=== PATIENT | male | born 1985 ===

== ENCOUNTER 2021-11-26 15:48 | Inpatient (IN) | payer SELFPAY ==
[2021-11-26 16:55] LABS: Basophils # (Auto) 0.1 K/mm3 (0.0-0.1); Basophils % (Auto) 0.6 % (0.0-1.8); Eosinophils % (Auto) 0.1 % (0.0-4.3); Hemoglobin 14.8 gm/dl (11.8-15.2); Lymphocytes # (Auto) 1.5 K/mm3 (1.2-5.4); Lymphocytes % (Auto) 9.6 % (13.4-35.0); Mean Corpuscular HGB Conc 34 % (32-34); Mean Corpuscular Volume 97 fl (84-94); Monocytes # (Auto) 1.6 K/mm3 (0.0-0.8); Monocytes % (Auto) 10.6 % (0.0-7.3); Platelet Count 269 K/mm3 (140-440); Red Blood Count 4.43 M/mm3 (3.65-5.03); Red Cell Distribution Width 14.2 % (13.2-15.2)
[2021-11-26 17:05] LABS: INR 1.16 (0.87-1.13)
[2021-11-26 17:14] LABS: Alanine Aminotransferase 42 units/L (7-56); Albumin 3.2 g/dL (3.9-5); Bilirubin,Direct 1.6 mg/dL (0-0.2); Blood Urea Nitrogen 7 mg/dL (9-20); Calcium 7.8 mg/dL (8.4-10.2); Hemolysis Index 11
[2021-11-26 17:15] LABS: BUN/Creatinine Ratio 14
[2021-11-26] MEDS ORDERED: THIAMINE 100 MG, FOLIC ACID 1 MG, MULTIPLE VITAMIN INJ, ADULT 10 ML in SODIUM CHLORIDE ... IV ONE (18:31)
[2021-11-26] MEDS ORDERED: SODIUM CHLORIDE 3% 500 ML IV ONE (18:33)
[2021-11-26 18:51] LABS: ABG Base Excess -10.7 mmol/L (-2.0-3.0); ABG HCO3 11.4 mmol/L (20.0-26.0); ABG Methemoglobin 0.7 % (0.0-1.5); ABG Oxygen Saturation 98.1 % (95.0-99.0); ABG PCO2 19.1 mm Hg; ABG PH 7.393 pH Units (7.350-7.450); ABG PO2 110.8 mm Hg (80.0-90.0)
--- NOTE | 2021-11-26 18:53 | Emergency Department Report ---
ED General Adult HPI - General Chief complaint: Abdominal Pain Stated complaint: ABD PAIN/SWELLING/PEDAL EDEMA Time Seen by Provider: 11/26/21 18:22 Source: EMS Mode of arrival: Stretcher Limitations: Language Barrier (Houseperson used) - History of Present Illness Initial comments: 36-year-old Citizen Of [place]-speaking male with a past medical history of hypertension and daily alcohol abuse presents to the hospital with complaints of generalized abdominal swelling, leg edema, shortness of breath. Patient started 5 days ago have been progressively worsening. Last alcohol intake was yesterday evening at 10 PM. Patient denies history of liver issues. No fever reported. Mild diffuse abdominal pain reported. Severity scale (0 -10): 4 - Related Data Allergies Allergy/AdvReac Type Severity Reaction Status Date / Time No Known Allergies Allergy Verified 11/26/21 18:35 ED Review of Systems ROS: Stated complaint: ABD PAIN/SWELLING/PEDAL EDEMA Other details as noted in HPI Comment: All other systems reviewed and negative ED Physical Exam - General Limitations: Language Barrier - Other Other exam information: General: Acute respiratory distress with diaphoresis Head: Atraumatic Eyes: normal appearance ENT: Moist mucous membranes Neck: Normal appearance, no midline tenderness Chest: Tachypnea, diminished breath sounds CV: Tachycardic regular rhythm Abdomen: Soft, normal bowel sounds, nontender abdomen Back: Normal inspection Extremity: Bilateral 1+ lower extremity pitting edema Neuro: Alert, oriented to self, place, but not to year. No facial asymmetry. Speech clear. No focal deficit. Generalized weakness inability to stand or ambulate without falling Psych: Cooperative Skin: Diaphoretic ED Course Vital Signs 11/26/21 11/26/21 11/26/21 15:50 19:05 19:16 Temperature 98.2 F Pulse Rate 112 H 117 H 117 H Respiratory 18 39 H 35 H Rate Blood Pressure Blood Pressure 128/64 [Left] O2 Sat by Pulse 98 100 100 Oximetry 11/26/21 11/26/21 11/26/21 19:43 19:45 20:01 Temperature Pulse Rate 116 H Respiratory 38 H Rate Blood Pressure 136/39 136/39 163/79 Blood Pressure [Left] O2 Sat by Pulse 100 100 100 Oximetry 11/26/21 11/26/21 11/26/21 20:07 20:15 20:27 Temperature Pulse Rate 115 H 115 H Respiratory 34 H 44 H Rate Blood Pressure 163/79 163/79 Blood Pressure [Left] O2 Sat by Pulse 100 100 96 Oximetry 11/26/21 11/26/21 11/26/21 20:31 20:45 21:01 Temperature Pulse Rate 116 H 119 H 117 H Respiratory 45 H 36 H 39 H Rate Blood Pressure 136/39 136/39 173/56 Blood Pressure [Left] O2 Sat by Pulse 99 100 99 Oximetry 11/26/21 11/26/21 11/26/21 21:15 21:31 21:37 Temperature Pulse Rate 118 H 114 H 116 H Respiratory 44 H 33 H 38 H Rate Blood Pressure 173/56 173/56 Blood Pressure 173/56 [Left] O2 Sat by Pulse 100 100 99 Oximetry 11/26/21 11/26/21 11/26/21 21:45 22:01 22:15 Temperature Pulse Rate 120 H 121 H Respiratory 25 H 25 H 32 H Rate Blood Pressure 173/56 139/79 139/79 Blood Pressure [Left] O2 Sat by Pulse 98 100 95 Oximetry 11/26/21 11/26/21 11/26/21 22:31 22:45 23:01 Temperature Pulse Rate 119 H 117 H Respiratory 36 H 17 Rate Blood Pressure 139/79 139/79 139/79 Blood Pressure [Left] O2 Sat by Pulse 95 97 98 Oximetry 11/26/21 11/26/21 11/26/21 23:15 23:31 23:38 Temperature Pulse Rate 114 H 117 H Respiratory 28 H 28 H Rate Blood Pressure 91/71 91/71 Blood Pressure [Left] O2 Sat by Pulse 98 98 100 Oximetry 11/26/21 11/27/21 11/27/21 23:45 00:01 00:15 Temperature Pulse Rate 112 H 111 H 111 H Respiratory 25 H 25 H 27 H Rate Blood Pressure 91/71 114/44 114/44 Blood Pressure [Left] O2 Sat by Pulse 98 98 98 Oximetry 11/27/21 11/27/21 11/27/21 00:31 00:45 01:01 Temperature Pulse Rate 110 H 113 H 114 H Respiratory 27 H 34 H 27 H Rate Blood Pressure 114/44 114/44 104/63 Blood Pressure [Left] O2 Sat by Pulse 97 100 99 Oximetry 11/27/21 11/27/21 11/27/21 01:15 01:31 01:47 Temperature Pulse Rate 115 H 120 H Respiratory 24 32 H Rate Blood Pressure 104/63 104/63 104/63 Blood Pressure [Left] O2 Sat by Pulse 97 97 Oximetry 11/27/21 11/27/21 11/27/21 01:59 02:01 02:15 Temperature Pulse Rate 118 H 117 H 116 H Respiratory 30 H 23 Rate Blood Pressure 129/52 129/52 Blood Pressure 126/58 [Left] O2 Sat by Pulse 98 98 98 Oximetry 11/27/21 11/27/21 11/27/21 02:31 02:45 03:01 Temperature Pulse Rate 116 H 119 H Respiratory 33 H 37 H Rate Blood Pressure 129/52 129/52 120/64 Blood Pressure [Left] O2 Sat by Pulse 96 95 93 Oximetry 11/27/21 11/27/21 11/27/21 03:15 03:31 03:45 Temperature Pulse Rate 121 H 122 H 124 H Respiratory 33 H 36 H 33 H Rate Blood Pressure 120/64 120/64 120/64 Blood Pressure [Left] O2 Sat by Pulse 87 96 97 Oximetry 11/27/21 11/27/21 11/27/21 04:01 04:15 04:31 Temperature Pulse Rate 123 H 124 H 123 H Respiratory 28 H 29 H 29 H Rate Blood Pressure 134/116 134/116 134/116 Blood Pressure [Left] O2 Sat by Pulse 99 100 96 Oximetry 11/27/21 11/27/21 11/27/21 04:45 05:01 05:15 Temperature Pulse Rate 123 H 124 H 124 H Respiratory 42 H 37 H 35 H Rate Blood Pressure 134/116 134/116 134/116 Blood Pressure [Left] O2 Sat by Pulse 94 95 95 Oximetry 11/27/21 11/27/21 11/27/21 05:31 05:45 06:01 Temperature Pulse Rate 120 H 120 H 119 H Respiratory Rate Blood Pressure 134/116 116/67 127/78 Blood Pressure [Left] O2 Sat by Pulse 99 99 99 Oximetry 11/27/21 11/27/21 11/27/21 06:15 06:31 06:45 Temperature Pulse Rate 120 H 116 H 117 H Respiratory Rate Blood Pressure 127/78 127/78 127/78 Blood Pressure [Left] O2 Sat by Pulse 98 99 100 Oximetry 11/27/21 11/27/21 11/27/21 07:01 07:15 07:29 Temperature Pulse Rate 116 H 111 H Respiratory Rate Blood Pressure 129/61 129/61 Blood Pressure [Left] O2 Sat by Pulse 100 100 96 Oximetry 11/27/21 11/27/21 11/27/21 07:31 07:38 07:45 Temperature 98.4 F Pulse Rate 108 H 107 H 107 H Respiratory Rate Blood Pressure 129/61 129/61 Blood Pressure 129/61 [Left] O2 Sat by Pulse 100 99 Oximetry 11/27/21 11/27/21 11/27/21 08:01 08:15 09:10 Temperature Pulse Rate 104 H 103 H Respiratory Rate Blood Pressure 128/63 128/63 Blood Pressure [Left] O2 Sat by Pulse 99 100 97 Oximetry - Reevaluation(s) Reevaluation #1: 11/26/21 21:30 Patient had a repeat episode of tachycardia, diaphoresis, and shortness of breath. Ativan and Lasix ordered. - Consultations Consultation #1: 11/26/21 18:50 Case discussed with on-call loading unit operator powder charging Dr. Manuel Koo. He agrees with hy pertonic saline at 25 mill per hour. Request every 4 hours BMP and to be notified with the sodium result. States that sodium should not rise greater than 8 and a 24 hours so sodium rate will need to be adjusted or discontinued if it is rising too rapidly ED Medical Decision Making - Lab Data Result diagrams: 11/27/21 02:03 11/27/21 10:19 Lab Results 11/26/21 11/26/21 11/26/21 Range/Units 11:00 16:24 16:24 WBC 15.4 H (4.5-11.0) K/mm3 RBC 4.43 (3.65-5.03) M/mm3 Hgb 14.8 (11.8-15.2) gm/dl Hct 43.0 (35.5-45.6) % MCV 97 H (84-94) fl MCH 33 H (28-32) pg MCHC 34 (32-34) % RDW 14.2 (13.2-15.2) % Plt Count 269 (140-440) K/mm3 Lymph % (Auto) 9.6 L (13.4-35.0) % [place] % (Auto) 10.6 H (0.0-7.3) % Eos % (Auto) 0.1 (0.0-4.3) % Baso % (Auto) 0.6 (0.0-1.8) % Lymph # (Auto) 1.5 (1.2-5.4) K/mm3 [place] # (Auto) 1.6 H (0.0-0.8) K/mm3 Eos # (Auto) 0.0 (0.0-0.4) K/mm3 Baso # (Auto) 0.1 (0.0-0.1) K/mm3 Seg Neutrophils % 79.1 H (40.0-70.0) % Seg Neutrophils # 12.2 H (1.8-7.7) K/mm3 PT 16.2 H (12.2-14.9) Sec. INR 1.16 H (0.87-1.13) APTT (24.2-36.6) Sec. ABG pH (7.350-7.450) pH Units ABG pCO2 mm Hg ABG pO2 (80.0-90.0) mm Hg ABG HCO3 (20.0-26.0) mmol/L ABG O2 Saturation (95.0-99.0) % ABG O2 Content (0.0-44) ABG Base Excess (-2.0-3.0) mmol/L ABG Hemoglobin (14.0-18.0) gm/dl ABG Carboxyhemoglobin (0.0-5.0) % ABG Methemoglobin (0.0-1.5) % Oxyhemoglobin (95.0-99.0) % FiO2 % Sodium (137-145) mmol/L Potassium (3.6-5.0) mmol/L Chloride (98-107) mmol/L Carbon Dioxide (22-30) mmol/L Anion Gap mmol/L BUN (9-20) mg/dL Creatinine (0.8-1.3) mg/dL Estimated GFR ml/min BUN/Creatinine Ratio % Glucose (75-100) mg/dL POC Glucose (70-105) mg/dL Ketones Quantitative (Negative) Lactic Acid (0.7-2.0) mmol/L Calcium (8.4-10.2) mg/dL Magnesium (1.7-2.3) mg/dL Total Bilirubin (0.1-1.2) mg/dL Direct Bilirubin (0-0.2) mg/dL Indirect Bilirubin mg/dL AST (5-40) units/L ALT (7-56) units/L Alkaline Phosphatase (35-129) units/L Ammonia (25-60) umol/L NT-Pro-B Natriuret Pep (0-450) pg/mL Total Protein (6.3-8.2) g/dL Albumin (3.9-5) g/dL Albumin/Globulin Ratio % Lipase (13-60) units/L TSH (0.270-4.200) mlU/mL Free T4 (0.76-1.46) ng/dL Urine Color [place] (Yellow) Urine Turbidity Clear (Clear) Urine pH 6.0 (5.0-7.0) Ur Specific [place] 1.021 (1.003-1.030) Urine Protein <15 mg/dl (Negative) mg/dL Urine Glucose (UA) Neg (Negative) mg/dL Urine Ketones Tr (Negative) mg/dL Urine Blood Neg (Negative) Urine Nitrite Neg (Negative) Urine Bilirubin Neg (Negative) Urine Urobilinogen 4.0 (<2.0) mg/dL Ur Leukocyte Esterase Neg (Negative) Urine WBC (Auto) 1.0 (0.0-6.0) /HPF Urine RBC (Auto) < 1.0 (0.0-6.0) /HPF U Epithel Cells (Auto) < 1.0 (0-13.0) /HPF Plasma/Serum Alcohol (0-0.07) % 11/26/21 11/26/21 11/26/21 Range/Units 16:24 16:24 16:24 WBC (4.5-11.0) K/mm3 RBC (3.65-5.03) M/mm3 Hgb (11.8-15.2) gm/dl Hct (35.5-45.6) % MCV (84-94) fl MCH (28-32) pg MCHC (32-34) % RDW (13.2-15.2) % Plt Count (140-440) K/mm3 Lymph % (Auto) (13.4-35.0) % [place] % (Auto) (0.0-7.3) % Eos % (Auto) (0.0-4.3) % Baso % (Auto) (0.0-1.8) % Lymph # (Auto) (1.2-5.4) K/mm3 [place] # (Auto) (0.0-0.8) K/mm3 Eos # (Auto) (0.0-0.4) K/mm3 Baso # (Auto) (0.0-0.1) K/mm3 Seg Neutrophils % (40.0-70.0) % Seg Neutrophils # (1.8-7.7) K/mm3 PT (12.2-14.9) Sec. INR (0.87-1.13) APTT 38.3 H (24.2-36.6) Sec. ABG pH (7.350-7.450) pH Units ABG pCO2 mm Hg ABG pO2 (80.0-90.0) mm Hg ABG HCO3 (20.0-26.0) mmol/L ABG O2 Saturation (95.0-99.0) % ABG O2 Content (0.0-44) ABG Base Excess (-2.0-3.0) mmol/L ABG Hemoglobin (14.0-18.0) gm/dl ABG Carboxyhemoglobin (0.0-5.0) % ABG Methemoglobin (0.0-1.5) % Oxyhemoglobin (95.0-99.0) % FiO2 % Sodium 102 L* (137-145) mmol/L Potassium 5.2 H (3.6-5.0) mmol/L Chloride 67.6 L (98-107) mmol/L Carbon Dioxide 13 L (22-30) mmol/L Anion Gap 27 mmol/L BUN 7 L (9-20) mg/dL Creatinine 0.5 L (0.8-1.3) mg/dL Estimated GFR > 60 ml/min BUN/Creatinine Ratio 14 % Glucose 127 H (75-100) mg/dL POC Glucose (70-105) mg/dL Ketones Quantitative (Negative) Lactic Acid (0.7-2.0) mmol/L Calcium 7.8 L (8.4-10.2) mg/dL Magnesium 1.90 (1.7-2.3) mg/dL Total Bilirubin 3.60 H (0.1-1.2) mg/dL Direct Bilirubin 1.6 H (0-0.2) mg/dL Indirect Bilirubin 2.0 mg/dL AST 232 H (5-40) units/L ALT 42 (7-56) units/L Alkaline Phosphatase 214 H (35-129) units/L Ammonia (25-60) umol/L NT-Pro-B Natriuret Pep 1043 H (0-450) pg/mL Total Protein 7.2 (6.3-8.2) g/dL Albumin 3.2 L (3.9-5) g/dL Albumin/Globulin Ratio 0.8 % Lipase 78 H (13-60) units/L TSH (0.270-4.200) mlU/mL Free T4 (0.76-1.46) ng/dL Urine Color (Yellow) Urine Turbidity (Clear) Urine pH (5.0-7.0) Ur Specific [place] (1.003-1.030) Urine Protein (Negative) mg/dL Urine Glucose (UA) (Negative) mg/dL Urine Ketones (Negative) mg/dL Urine Blood (Negative) Urine Nitrite (Negative) Urine Bilirubin (Negative) Urine Urobilinogen (<2.0) mg/dL Ur Leukocyte Esterase (Negative) Urine WBC (Auto) (0.0-6.0) /HPF Urine RBC (Auto) (0.0-6.0) /HPF U Epithel Cells (Auto) (0-13.0) /HPF Plasma/Serum Alcohol (0-0.07) % 11/26/21 11/26/21 11/26/21 Range/Units 16:24 18:31 18:44 WBC (4.5-11.0) K/mm3 RBC (3.65-5.03) M/mm3 Hgb (11.8-15.2) gm/dl Hct (35.5-45.6) % MCV (84-94) fl MCH (28-32) pg MCHC (32-34) % RDW (13.2-15.2) % Plt Count (140-440) K/mm3 Lymph % (Auto) (13.4-35.0) % [place] % (Auto) (0.0-7.3) % Eos % (Auto) (0.0-4.3) % Baso % (Auto) (0.0-1.8) % Lymph # (Auto) (1.2-5.4) K/mm3 [place] # (Auto) (0.0-0.8) K/mm3 Eos # (Auto) (0.0-0.4) K/mm3 Baso # (Auto) (0.0-0.1) K/mm3 Seg Neutrophils % (40.0-70.0) % Seg Neutrophils # (1.8-7.7) K/mm3 PT (12.2-14.9) Sec. INR (0.87-1.13) APTT (24.2-36.6) Sec. ABG pH 7.393 (7.350-7.450) pH Units ABG pCO2 19.1 mm Hg ABG pO2 110.8 H (80.0-90.0) mm Hg ABG HCO3 11.4 L (20.0-26.0) mmol/L ABG O2 Saturation 98.1 (95.0-99.0) % ABG O2 Content 20.6 (0.0-44) ABG Base Excess -10.7 L (-2.0-3.0) mmol/L ABG Hemoglobin 15.2 (14.0-18.0) gm/dl ABG Carboxyhemoglobin 1.6 (0.0-5.0) % ABG Methemoglobin 0.7 (0.0-1.5) % Oxyhemoglobin 95.9 (95.0-99.0) % FiO2 28 % Sodium (137-145) mmol/L Potassium (3.6-5.0) mmol/L Chloride (98-107) mmol/L Carbon Dioxide (22-30) mmol/L Anion Gap mmol/L BUN (9-20) mg/dL Creatinine (0.8-1.3) mg/dL Estimated GFR ml/min BUN/Creatinine Ratio % Glucose (75-100) mg/dL POC Glucose (70-105) mg/dL Ketones Quantitative Negative (Negative) Lactic Acid 9.10 H* (0.7-2.0) mmol/L Calcium (8.4-10.2) mg/dL Magnesium (1.7-2.3) mg/dL Total Bilirubin (0.1-1.2) mg/dL Direct Bilirubin (0-0.2) mg/dL Indirect Bilirubin mg/dL AST (5-40) units/L ALT (7-56) units/L Alkaline Phosphatase (35-129) units/L Ammonia (25-60) umol/L NT-Pro-B Natriuret Pep (0-450) pg/mL Total Protein (6.3-8.2) g/dL Albumin (3.9-5) g/dL Albumin/Globulin Ratio % Lipase (13-60) units/L TSH (0.270-4.200) mlU/mL Free T4 (0.76-1.46) ng/dL Urine Color (Yellow) Urine Turbidity (Clear) Urine pH (5.0-7.0) Ur Specific [place] (1.003-1.030) Urine Protein (Negative) mg/dL Urine Glucose (UA) (Negative) mg/dL Urine Ketones (Negative) mg/dL Urine Blood (Negative) Urine Nitrite (Negative) Urine Bilirubin (Negative) Urine Urobilinogen (<2.0) mg/dL Ur Leukocyte Esterase (Negative) Urine WBC (Auto) (0.0-6.0) /HPF Urine RBC (Auto) (0.0-6.0) /HPF U Epithel Cells (Auto) (0-13.0) /HPF Plasma/Serum Alcohol (0-0.07) % 11/26/21 11/26/21 11/26/21 Range/Units 18:44 18:44 18:51 WBC (4.5-11.0) K/mm3 RBC (3.65-5.03) M/mm3 Hgb (11.8-15.2) gm/dl Hct (35.5-45.6) % MCV (84-94) fl MCH (28-32) pg MCHC (32-34) % RDW (13.2-15.2) % Plt Count (140-440) K/mm3 Lymph % (Auto) (13.4-35.0) % [place] % (Auto) (0.0-7.3) % Eos % (Auto) (0.0-4.3) % Baso % (Auto) (0.0-1.8) % Lymph # (Auto) (1.2-5.4) K/mm3 [place] # (Auto) (0.0-0.8) K/mm3 Eos # (Auto) (0.0-0.4) K/mm3 Baso # (Auto) (0.0-0.1) K/mm3 Seg Neutrophils % (40.0-70.0) % Seg Neutrophils # (1.8-7.7) K/mm3 PT (12.2-14.9) Sec. INR (0.87-1.13) APTT (24.2-36.6) Sec. ABG pH (7.350-7.450) pH Units ABG pCO2 mm Hg ABG pO2 (80.0-90.0) mm Hg ABG HCO3 (20.0-26.0) mmol/L ABG O2 Saturation (95.0-99.0) % ABG O2 Content (0.0-44) ABG Base Excess (-2.0-3.0) mmol/L ABG Hemoglobin (14.0-18.0) gm/dl ABG Carboxyhemoglobin (0.0-5.0) % ABG Methemoglobin (0.0-1.5) % Oxyhemoglobin (95.0-99.0) % FiO2 % Sodium (137-145) mmol/L Potassium (3.6-5.0) mmol/L Chloride (98-107) mmol/L Carbon Dioxide (22-30) mmol/L Anion Gap mmol/L BUN (9-20) mg/dL Creatinine (0.8-1.3) mg/dL Estimated GFR ml/min BUN/Creatinine Ratio % Glucose (75-100) mg/dL POC Glucose (70-105) mg/dL Ketones Quantitative (Negative) Lactic Acid (0.7-2.0) mmol/L Calcium (8.4-10.2) mg/dL Magnesium (1.7-2.3) mg/dL Total Bilirubin (0.1-1.2) mg/dL Direct Bilirubin (0-0.2) mg/dL Indirect Bilirubin mg/dL AST (5-40) units/L ALT (7-56) units/L Alkaline Phosphatase (35-129) units/L Ammonia 59.0 (25-60) umol/L NT-Pro-B Natriuret Pep (0-450) pg/mL Total Protein (6.3-8.2) g/dL Albumin (3.9-5) g/dL Albumin/Globulin Ratio % Lipase (13-60) units/L TSH 3.910 (0.270-4.200) mlU/mL Free T4 1.46 (0.76-1.46) ng/dL Urine Color (Yellow) Urine Turbidity (Clear) Urine pH (5.0-7.0) Ur Specific [place] (1.003-1.030) Urine Protein (Negative) mg/dL Urine Glucose (UA) (Negative) mg/dL Urine Ketones (Negative) mg/dL Urine Blood (Negative) Urine Nitrite (Negative) Urine Bilirubin (Negative) Urine Urobilinogen (<2.0) mg/dL Ur Leukocyte Esterase (Negative) Urine WBC (Auto) (0.0-6.0) /HPF Urine RBC (Auto) (0.0-6.0) /HPF U Epithel Cells (Auto) (0-13.0) /HPF Plasma/Serum Alcohol 0.04 (0-0.07) % 11/26/21 11/26/21 11/26/21 Range/Units 21:02 21:02 21:30 WBC (4.5-11.0) K/mm3 RBC (3.65-5.03) M/mm3 Hgb (11.8-15.2) gm/dl Hct (35.5-45.6) % MCV (84-94) fl MCH (28-32) pg MCHC (32-34) % RDW (13.2-15.2) % Plt Count (140-440) K/mm3 Lymph % (Auto) (13.4-35.0) % [place] % (Auto) (0.0-7.3) % Eos % (Auto) (0.0-4.3) % Baso % (Auto) (0.0-1.8) % Lymph # (Auto) (1.2-5.4) K/mm3 [place] # (Auto) (0.0-0.8) K/mm3 Eos # (Auto) (0.0-0.4) K/mm3 Baso # (Auto) (0.0-0.1) K/mm3 Seg Neutrophils % (40.0-70.0) % Seg Neutrophils # (1.8-7.7) K/mm3 PT (12.2-14.9) Sec. INR (0.87-1.13) APTT (24.2-36.6) Sec. ABG pH (7.350-7.450) pH Units ABG pCO2 mm Hg ABG pO2 (80.0-90.0) mm Hg ABG HCO3 (20.0-26.0) mmol/L ABG O2 Saturation (95.0-99.0) % ABG O2 Content (0.0-44) ABG Base Excess (-2.0-3.0) mmol/L ABG Hemoglobin (14.0-18.0) gm/dl ABG Carboxyhemoglobin (0.0-5.0) % ABG Methemoglobin (0.0-1.5) % Oxyhemoglobin (95.0-99.0) % FiO2 % Sodium 101 L* (137-145) mmol/L Potassium TNR (3.6-5.0) mmol/L Chloride 72.7 L (98-107) mmol/L Carbon Dioxide 11 L (22-30) mmol/L Anion Gap 24 mmol/L BUN 9 (9-20) mg/dL Creatinine 0.4 L (0.8-1.3) mg/dL Estimated GFR > 60 ml/min BUN/Creatinine Ratio 23 % Glucose 128 H (75-100) mg/dL POC Glucose 127 H (70-105) mg/dL Ketones Quantitative (Negative) Lactic Acid 4.70 H* (0.7-2.0) mmol/L Calcium 7.0 L (8.4-10.2) mg/dL Magnesium (1.7-2.3) mg/dL Total Bilirubin (0.1-1.2) mg/dL Direct Bilirubin (0-0.2) mg/dL Indirect Bilirubin mg/dL AST (5-40) units/L ALT (7-56) units/L Alkaline Phosphatase (35-129) units/L Ammonia (25-60) umol/L NT-Pro-B Natriuret Pep (0-450) pg/mL Total Protein (6.3-8.2) g/dL Albumin (3.9-5) g/dL Albumin/Globulin Ratio % Lipase (13-60) units/L TSH (0.270-4.200) mlU/mL Free T4 (0.76-1.46) ng/dL Urine Color (Yellow) Urine Turbidity (Clear) Urine pH (5.0-7.0) Ur Specific [place] (1.003-1.030) Urine Protein (Negative) mg/dL Urine Glucose (UA) (Negative) mg/dL Urine Ketones (Negative) mg/dL Urine Blood (Negative) Urine Nitrite (Negative) Urine Bilirubin (Negative) Urine Urobilinogen (<2.0) mg/dL Ur Leukocyte Esterase (Negative) Urine WBC (Auto) (0.0-6.0) /HPF Urine RBC (Auto) (0.0-6.0) /HPF U Epithel Cells (Auto) (0-13.0) /HPF Plasma/Serum Alcohol (0-0.07) % - EKG Data -: EKG Interpreted by De EKG shows normal: sinus rhythm, ST-T waves (No STEMI) Rate: tachycardia (114) - Radiology Data Radiology results: report reviewed CHEST 1 VIEW INDICATION: sob. COMPARISON: None FINDINGS: SUPPORT DEVICES: None. HEART: Within normal limits. LUNGS/PLEURA: Mild patchy multifocal airspace disease with no pleural effusion. ADDITIONAL FINDINGS: None. IMPRESSION: 1. Lung findings as above. CT head/brain wo con INDICATION: confusion, alcohol abuse, hyponatremia. TECHNIQUE: Routine CT head. All CT scans at this location are performed using CT dose reduction for ALARA by means of automated exposure control. COMPARISON: None. FINDINGS: Intracranial: Mccormack-white matter differentiation is maintained. No intracranial hemorrhage. No extra axial collection. No hydrocephalus. No herniation. Sinuses: Paranasal sinuses and mastoid air cells are essentially clear. Orbits: Globes are intact. Calvarium: No acute fracture. IMPRESSION: 1. No acute intracranial abnormality. CTA chest with contrast CT abdomen and pelvis with contrast INDICATION : abd distention, alcoholic. TECHNIQUE: Axial imaging performed through the chest, with contrast bolus timing set to maximize opacification of the pulmonary arteries. 3-plane MIP reformatted images were obtained. Axial imaging also the abdomen and pelvis with IV contrast. All CT scans at this location are performed using CT dose reduction for ALARA by means of automated exposure control. 100 mL of intravenous contrast administered. COMPARISON: FINDINGS: CTA chest: Adequate contrast bolus timing with mild motion artifact. The subsegmental distribution is slightly limited by the motion but no obvious PTE identified. Mild cardiomegaly. No significant coronary artery calcifications. Several [place] regional lymph nodes are present. There is suggestion of diffuse patchy groundglass airspace disease in the lungs with no effusion. Degenerative changes are present in the spine with no acute osseous abnormality. CT abdomen/pelvis: There is hepatic steatosis. No liver lesion identified. The gallbladder, spleen, pancreas, adrenals, kidneys, and proximal GI tract appear unremarkable. Mild generalized body wall edema is present. The urinary bladder is distended but otherwise unremarkable. No pelvic free fluid or acute colonic abnormality identified. Degenerative changes in the spine with nothing acute. IMPRESSION: 1. Motion limited exam with no obvious PTE identified. 2. Diffuse groundglass airspace opacities could be seen in the setting of edema or atypical etiology. 3. Hepatic steatosis. 4. Generalized anasarca. - Medical Decision Making 36-year-old male alcoholic presents to the hospital with diaphoresis, edema, and respiratory distress. Patient was placed on oxygen and repositioning with improvement in diaphoresis and respiratory distress. ED work-up reveals groundglass opacities suggestive of edema versus infiltrate. Patient has anasarca without mel ascites. Labs reveal significant hyponatremia. Case discussed with critical care attending and loading unit operator powder charging and hypertonic saline was initiated. Nephrology requests to have repeat BMPs every 4 hours and to be contacted regarding results. RN was informed blood cultures and antibiotics initiated for possible pneumonia. COVID test ordered. Patient significant lactic acidosis which could be secondary to chronic alcohol intake and thiamine deficiency. IV fluid bolus not initiated due to overall volume overload and anasarca with possible pulmonary edema on chest x-ray/CT. ABG performed on 2 L nasal cannula reveals a compensated metabolic acidosis. Banana bag initiated as well. Ativan provided for sx of etoh withdrawal Critical Care Time: Yes Critical care time in (mins) excluding proc time.: 65 Critical care attestation.: If time is entered above; I have spent that time in minutes in the direct care of this critically ill patient, excluding procedure time. Critical Care Time: 65 Minutes of critical care time excluding procedures were used in the care of the patient. I cam I discussed treatment plan with the nursing team members. I reviewed electronic record. I spoke with family to obtain medical history. Patient required multiple interventions and reassessments. Spoke with hospitalist and consultants for collaborative care. Patient will require ICU admission ED Disposition Clinical Impression: Hyponatremia, Alcohol withdrawal, Anasarca Disposition: ADMITTED INPATIENT Is pt being admited?: Yes Condition: Stable Time of Disposition: 21:38 (admit to dr Mckeon)
--- NOTE | 2021-11-26 19:12 | XRay Report ---
CHEST 1 VIEW INDICATION: sob. COMPARISON: None FINDINGS: SUPPORT DEVICES: None. HEART: Within normal limits. LUNGS/PLEURA: Mild patchy multifocal airspace disease with no pleural effusion. ADDITIONAL FINDINGS: None. IMPRESSION: 1. Lung findings as above. Signer Name: Dayron Garcia MD Signed: 11/26/2021 7:08 PM Workstation Name: [id number]
[2021-11-26 19:40] LABS: Free T4 (Free Thyroxine) 1.46 ng/dL (0.76-1.46)
--- NOTE | 2021-11-26 20:09 | Cat Scan Report ---
CT head/brain wo con INDICATION: confusion, alcohol abuse, hyponatremia. TECHNIQUE: Routine CT head. All CT scans at this location are performed using CT dose reduction for A MARCELLUS by means of automated exposure control. COMPARISON: None. FINDINGS: Intracranial: Mccormack-white matter differentiation is maintained. No intracranial hemorrhage. No extra a xial collection. No hydrocephalus. No herniation. Sinuses: Paranasal sinuses and mastoid air cells are essentially clear. Orbits: Globes are intact. Calvarium: No acute fracture. IMPRESSION: 1. No acute intracranial abnormality. Signer Name: Hossein Rapp MD Signed: 11/26/2021 8:04 PM Workstation Name: [id number]
--- NOTE | 2021-11-26 20:20 | Cat Scan Report ---
CTA chest with contrast CT abdomen and pelvis with contrast INDICATION : abd distention, alcoholic. TECHNIQUE: Axial imaging performed through the chest, with contrast bolus timing set to maximize opa cification of the pulmonary arteries. 3-plane MIP reformatted images were obtained. Axial imaging als o the abdomen and pelvis with IV contrast. All CT scans at this location are performed using CT dose reduction for ALARA by means of automated exposure control. 100 mL of intravenous contrast administered. COMPARISON: FINDINGS: CTA chest: Adequate contrast bolus timing with mild motion artifact. The subsegmental distribution is slightly l imited by the motion but no obvious PTE identified. Mild cardiomegaly. No significant coronary artery calcifications. Several [place] regional lymph nodes are present. There is suggestion of diffuse patc hy groundglass airspace disease in the lungs with no effusion. Degenerative changes are present in th e spine with no acute osseous abnormality. CT abdomen/pelvis: There is hepatic steatosis. No liver lesion identified. The gallbladder, spleen, pancreas, adrenals, kidneys, and proximal GI tract appear unremarkable. Mild generalized body wall edema is present. The urinary bladder is distended but otherwise unremarkable. No pelvic free fluid or acute colonic ab normality identified. Degenerative changes in the spine with nothing acute. IMPRESSION: 1. Motion limited exam with no obvious PTE identified. 2. Diffuse groundglass airspace opacities could be seen in the setting of edema or atypical etiology. 3. Hepatic steatosis. 4. Generalized anasarca. Signer Name: Dayron Garcia MD Signed: 11/26/2021 8:15 PM Workstation Name: [id number]
[2021-11-26] MEDS ORDERED: cefTRIAXone/NS 1 GM/50 ML 1 GM/50 ML BAG IV ONE (20:54)
[2021-11-26] MEDS ORDERED: AZITHROMYCIN/NS 500 MG/250 ML 500 MG/250 ML BAG IV ONE (20:54)
[2021-11-26] MEDS ORDERED: LORazepam 2 MG/ML VIAL IV ONE (21:29)
[2021-11-26] MEDS ORDERED: FUROSEMIDE 40 MG/4 ML INJ IV ONE (21:29)
[2021-11-26 21:56] LABS: Blood Urea Nitrogen 9 mg/dL (9-20); Hemolysis Index 268
[2021-11-26] MEDS ORDERED: ALBUTEROL 2.5 MG/3 ML NEBU IH PRN (21:59)
[2021-11-26] MEDS ORDERED: MORPHINE 2 MG/1 ML INJ IV PRN (21:59)
[2021-11-26] MEDS ORDERED: ONDANSETRON 4 MG/2 ML INJ IV PRN (21:59)
[2021-11-26] MEDS ORDERED: ACETAMINOPHEN 325 MG TAB PO PRN (21:59)
[2021-11-26] MEDS ORDERED: MORPHINE 4 MG/1 ML INJ IV PRN (21:59)
[2021-11-26] MEDS ORDERED: FAMOTIDINE 20 MG TAB PO SCH (22:00)
[2021-11-26 22:02] LABS: BUN/Creatinine Ratio 23
--- NOTE | 2021-11-26 22:06 | History and Physical Report ---
History of Present Illness Date of examination: 11/26/21 Date of admission: 11/26/21 Chief complaint: Abdominal pain Abdominal swelling/pedal edema History of present illness: 36-year-old male with past medical history of alcohol abuse was brought to the emergency room because of diaphoresis, generalized abdominal swelling, leg edema, shortness of breath . Patient was placed on oxygen and repositioning with improvement in diaphoresis and respiratory distress. ED work-up reveals groundglass opacities suggestive of edema versus infiltrate. Patient has anasarca without mel ascites. In the ER patient is found to have sodium of 102, potassium of 5.2, chloride 67.6 lactic acid of 9.10, BUN of 7 creatinine of 0.5 . Case discussed with critical care attending and windshield wiper repairer and hypertonic saline was initiated. Nephrology requests to have repeat BMPs every 4 hours and to be contacted regarding results. RN was informed blood cultures and antibiotics initiated for possible pneumonia. COVID test ordered. Patient significant lactic acidosis which could be secondary to chronic alcohol intake and thiamine deficiency. IV fluid bolus not initiated due to overall volume overload and anasarca with possible pulmonary edema on chest x-ray/CT. ABG performed on 2 L nasal cannula reveals a compensated metabolic acidosis. Banana bag initiated as well. Past History Past Medical History: other (Alcohol abuse) Past Surgical History: No surgical history Social history: alcohol abuse Family history: hypertension Medications and Allergies Allergies Allergy/AdvReac Type Severity Reaction Status Date / Time No Known Allergies Allergy Verified 11/26/21 18:35 Active Meds: Active Medications Thiamine HCl 100 mg/ Folic Acid 1 mg/ Multivitamins/Minerals 10 ml/ Sodium Chloride 1,011.2 mls @ 250 mls/hr IV ONCE ONE Stop: 11/26/21 22:33 Last Admin: 11/26/21 19:10 Dose: 250 mls/hr Sodium Chloride (Nacl 3%) 500 mls @ 25 mls/hr IV DIRECT ONE Stop: 11/27/21 14:32 Last Admin: 11/26/21 20:01 Dose: 25 mls/hr Review of Systems All systems: negative Gastrointestinal: abdominal pain, other (Abdominal swelling, pedal edema) Exam - Constitutional Vitals: Temp Pulse Resp BP Pulse Ox 98.2 F 116 H 38 H 173/56 99 11/26/21 15:50 11/26/21 21:37 11/26/21 21:37 11/26/21 21:37 11/26/21 21:37 General appearance: Present: mild distress - EENT Eyes: Present: PERRL ENT: hearing intact, clear oral mucosa - Neck Neck: Present: supple, normal ROM - Respiratory Respiratory effort: normal Respiratory: bilateral: diminished - Cardiovascular Heart Sounds: Present: S1 & S2. Absent: rub, click - Extremities Extremities: pulses symmetrical Extremity abnormal: edema Peripheral Pulses: within normal limits - Abdominal General gastrointestinal: Present: soft, non-tender, non-distended, normal bowel sounds Male genitourinary: Present: normal - Integumentary Integumentary: Present: clear, warm, dry - Musculoskeletal Musculoskeletal: gait normal, strength equal bilaterally - Psychiatric Psychiatric: appropriate mood/affect, intact judgment & insight - Neurologic Neurologic: CNII-XII intact, moves all extremities Results - Labs CBC & Chem 7: 11/26/21 16:24 11/26/21 21:02 Labs: Laboratory Last Values WBC 15.4 K/mm3 (4.5-11.0) H 11/26/21 16:24 RBC 4.43 M/mm3 (3.65-5.03) 11/26/21 16:24 Hgb 14.8 gm/dl (11.8-15.2) 11/26/21 16:24 Hct 43.0 % (35.5-45.6) 11/26/21 16:24 MCV 97 fl (84-94) H 11/26/21 16:24 MCH 33 pg (28-32) H 11/26/21 16:24 MCHC 34 % (32-34) 11/26/21 16:24 RDW 14.2 % (13.2-15.2) 11/26/21 16:24 Plt Count 269 K/mm3 (140-440) 11/26/21 16:24 Lymph % (Auto) 9.6 % (13.4-35.0) L 11/26/21 16:24 [place] % (Auto) 10.6 % (0.0-7.3) H 11/26/21 16:24 Eos % (Auto) 0.1 % (0.0-4.3) 11/26/21 16:24 Baso % (Auto) 0.6 % (0.0-1.8) 11/26/21 16:24 Lymph # (Auto) 1.5 K/mm3 (1.2-5.4) 11/26/21 16:24 [place] # (Auto) 1.6 K/mm3 (0.0-0.8) H 11/26/21 16:24 Eos # (Auto) 0.0 K/mm3 (0.0-0.4) 11/26/21 16:24 Baso # (Auto) 0.1 K/mm3 (0.0-0.1) 11/26/21 16:24 Seg Neutrophils % 79.1 % (40.0-70.0) H 11/26/21 16:24 Seg Neutrophils # 12.2 K/mm3 (1.8-7.7) H 11/26/21 16:24 PT 16.2 Sec. (12.2-14.9) H 11/26/21 16:24 INR 1.16 (0.87-1.13) H 11/26/21 16:24 APTT 38.3 Sec. (24.2-36.6) H 11/26/21 16:24 ABG pH 7.393 pH Units (7.350-7.450) 11/26/21 18:31 ABG pCO2 19.1 mm Hg 11/26/21 18:31 ABG pO2 110.8 mm Hg (80.0-90.0) H 11/26/21 18:31 ABG HCO3 11.4 mmol/L (20.0-26.0) L 11/26/21 18: ABG O2 Saturation 98.1 % (95.0-99.0) 11/26/21 18:31 ABG O2 Content 20.6 (0.0-44) 11/26/21 18:31 ABG Base Excess -10.7 mmol/L (-2.0-3.0) L 11/26/21 18:31 ABG Hemoglobin 15.2 gm/dl (14.0-18.0) 11/26/21 18:31 ABG Carboxyhemoglobin 1.6 % (0.0-5.0) 11/26/21 18: ABG Methemoglobin 0.7 % (0.0-1.5) 11/26/21 18:31 Oxyhemoglobin 95.9 % (95.0-99.0) 11/26/21 18:31 FiO2 28 % 11/26/21 18:31 Sodium 102 mmol/L (137-145) L* 11/26/21 16:24 Potassium 5.2 mmol/L (3.6-5.0) H 11/26/21 16:24 Chloride 72.7 mmol/L (98-107) L 11/26/21 21:02 Carbon Dioxide 11 mmol/L (22-30) L 11/26/21 21:02 Anion Gap 24 mmol/L 11/26/21 21:02 BUN 9 mg/dL (9-20) 11/26/21 21:02 Creatinine 0.4 mg/dL (0.8-1.3) L 11/26/21 21:02 Estimated GFR > 60 ml/min 11/26/21 21:02 BUN/Creatinine Ratio 23 % 11/26/21 21:02 Glucose 128 mg/dL (75-100) H 11/26/21 21:02 POC Glucose 127 mg/dL (70-105) H 11/26/21 21:30 Ketones Quantitative Negative (Negative) 11/26/21 16:24 Lactic Acid 4.70 mmol/L (0.7-2.0) H* 11/26/21 21:02 Calcium 7.0 mg/dL (8.4-10.2) L 11/26/21 21:02 Magnesium 1.90 mg/dL (1.7-2.3) 11/26/21 16:24 Total Bilirubin 3.60 mg/dL (0.1-1.2) H 11/26/21 16:24 Direct Bilirubin 1.6 mg/dL (0-0.2) H 11/26/21 16:24 Indirect Bilirubin 2.0 mg/dL 11/26/21 16:24 AST 232 units/L (5-40) H 11/26/21 16:24 ALT 42 units/L (7-56) 11/26/21 16:24 Alkaline Phosphatase 214 units/L (35-129) H 11/26/21 16:24 Ammonia 59.0 umol/L (25-60) 11/26/21 18:51 NT-Pro-B Natriuret Pep 1043 pg/mL (0-450) H 11/26/21 16:24 Total Protein 7.2 g/dL (6.3-8.2) 11/26/21 16:24 Albumin 3.2 g/dL (3.9-5) L 11/26/21 16:24 Albumin/Globulin Ratio 0.8 % 11/26/21 16:24 Lipase 78 units/L (13-60) H 11/26/21 16:24 TSH 3.910 mlU/mL (0.270-4.200) 11/26/21 18:44 Free T4 1.46 ng/dL (0.76-1.46) 11/26/21 18:44 Plasma/Serum Alcohol 0.04 % (0-0.07) 11/26/21 18:44 - Imaging and Cardiology CT scan - abdomen: report reviewed CT scan - chest: report reviewed CT Scan - head: report reviewed Assessment and Plan VTE prophylaxis?: Mechanical Plan of care discussed with patient/family: Yes - Patient Problems (1) Hyponatremia Current Visit: Yes Status: Acute Plan to address problem: Admit the patient to the critical care unit. Sodium is 102.Case discussed with on-call windshield wiper repairer Dr. Manuel Koo. He agrees with hypertonic saline at 25 mill per hour. Request every 4 hours BMP and to be notified with the sodium result. States that sodium should not rise greater than 8 and a 24 hours so sodium rate will need to be adjusted or discontinued if it is rising too rapidly. Recheck BMP in the morning. Critical care evaluation (2) Pneumonia Current Visit: Yes Status: Acute Plan to address problem: Oxygen via nasal cannula 3 L/min. DuoNeb nebulizer every 4 hours. Rocephin 2 g IV daily. Zithromax 500 mg p.o. daily. Blood culture and sputum culture. Recheck CBC BMP in the morning (3) Alcohol withdrawal Current Visit: Yes Status: Acute Plan to address problem: We will put the patient on thiamine folic acid and banana bag daily. We also put the patient on CIWA protocol. We counseled regarding quit drinking (4) Anasarca Current Visit: Yes Status: Acute Plan to address problem: Fluid restriction. Nutritional evaluation. Quit drinking. Critical care evaluation (5) DVT prophylaxis Current Visit: Yes Status: Acute Plan to address problem: SCD for DVT prophylaxis. Pepcid 20 mg p.o. twice daily for GI prophylaxis. Patient is a full code
[2021-11-26] MEDS ORDERED: INSULIN REGULAR, HUMAN 100 UNITS/1 ML IV ONE (22:10)
[2021-11-26] MEDS ORDERED: DEXTROSE 50% IN WATER (25GM) 50 ML SYRINGE IV ONE (22:12)
[2021-11-26 22:55] LABS: Blood Urea Nitrogen 9 mg/dL (9-20); Calcium 7.3 mg/dL (8.4-10.2); Hemolysis Index 31
[2021-11-26 22:57] LABS: BUN/Creatinine Ratio 15
[2021-11-26] MEDS: LORazepam 2 MG/ML VIAL IV PRN (23:00)
[2021-11-26] MEDS ORDERED: CALCIUM GLUCONATE 2,000 MG in SODIUM CHLORIDE 0.9% 100 ML IV ONE (23:13)
[2021-11-27] MEDS: LORazepam 2 MG/ML VIAL IV PRN ×2 (01:52→03:06)
[2021-11-27] MEDS ORDERED: IPRATROPIUM/ALBUTEROL SULFATE 3 ML AMPUL.NEB IH SCH (02:00)
[2021-11-27 02:17] LABS: Basophils # (Auto) 0.1 K/mm3 (0.0-0.1); Basophils % (Auto) 0.5 % (0.0-1.8); Eosinophils % (Auto) 0.2 % (0.0-4.3); Hematocrit 42.1 % (35.5-45.6); Hemoglobin 14.4 gm/dl (11.8-15.2); Lymphocytes # (Auto) 1.9 K/mm3 (1.2-5.4); Lymphocytes % (Auto) 12.1 % (13.4-35.0); Mean Corpuscular HGB Conc 34 % (32-34); Mean Corpuscular Volume 98 fl (84-94); Monocytes % (Auto) 12.8 % (0.0-7.3); Platelet Count 227 K/mm3 (140-440); Red Cell Distribution Width 14.1 % (13.2-15.2)
[2021-11-27 02:32] LABS: Blood Urea Nitrogen 10 mg/dL (9-20); Calcium 7.9 mg/dL (8.4-10.2); Hemolysis Index 8
[2021-11-27 02:53] LABS: BUN/Creatinine Ratio 17
[2021-11-27] MEDS ORDERED: ZIPRASIDONE MESYLATE 20 MG VIAL IM ONE (03:49)
--- NOTE | 2021-11-27 04:43 | Event Note ---
Date: 11/27/21 Sodium is 109. Case discussed with Dr. Dana De Leon who recommend rest of the hypertonic saline and recheck the next BMP and discussed the case with Dr. Dana De Leon for further evaluation and treatment
[2021-11-27] MEDS ORDERED: SODIUM CHLORIDE 0.9% IV SCH (05:00)
[2021-11-27] MEDS ORDERED: DEXMEDETOMIDINE IV SCH (05:00)
[2021-11-27 05:31] LABS: BUN/Creatinine Ratio 18; Blood Urea Nitrogen 11 mg/dL (9-20); Calcium 7.8 mg/dL (8.4-10.2); Hemolysis Index 6
--- NOTE | 2021-11-27 09:06 | Electrocardiograph Report ---
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
[2021-11-27] MEDS ORDERED: AZITHROMYCIN 250 MG TAB PO SCH (10:00)
[2021-11-27] MEDS ORDERED: cefTRIAXone/NS 2 GM/100 ML 2 GM/100 ML BAG IV SCH (10:00)
[2021-11-27 10:54] LABS: BUN/Creatinine Ratio 20; Blood Urea Nitrogen 12 mg/dL (9-20); Calcium 7.5 mg/dL (8.4-10.2); Hemolysis Index 26
--- NOTE | 2021-11-27 11:02 | Consultation ---
History of Present Illness - Reason for Consult Consult date: 11/27/21 hyponatremia - History of Present Illness This is a 36 year old [place] male who presented tot [facility] for a chief complaint of shortness of breath, swelling and weakness. On evaluation, patient was found to have a sodium level of 102. He received some Hypertonic saline last night. Most recent sodium level is 110. Patient is currently sedated and no family at bedside. Patient has history of Alcohol abuse. We are being consulted for management of this patient's Hyponatremia. Past History Past Medical History: other (Alcohol abuse) Past Surgical History: No surgical history Social history: alcohol abuse Family history: hypertension Medications and Allergies Allergies Allergy/AdvReac Type Severity Reaction Status Date / Time No Known Allergies Allergy Verified 11/26/21 18:35 Active Meds: Active Medications Acetaminophen (Acetaminophen 325 Mg Tab) 650 mg PO Q4H PRN PRN Reason: Pain MILD(1-3)/Fever >100.5/OAKES Albuterol (Albuterol 2.5 Mg/3 Ml Nebu) 2.5 mg IH Q3HRT PRN PRN Reason: Shortness Of Breath Azithromycin (Azithromycin 250 Mg Tab) 500 mg PO QDAY INDEJRIT; Protocol Famotidine (Famotidine 20 Mg Tab) 20 mg FEEDTUBE BID INDERJIT Folic Acid (Folic Acid 1 Mg Tab) 1 mg FEEDTUBE DAILY INDERJIT Ceftriaxone Sodium (Rocephin/Ns 2 Gm/100 Ml) 2 gm in 100 mls @ 200 mls/hr IV Q24HR INDERJIT; Protocol Dexmedetomidine HCl 400 mcg/ (Sodium Chloride) 100 mls @ 5.216 mls/hr IV TITRATE INDERJIT; Protocol Last Titration: 11/27/21 06:38 Dose: 0.3 mcg/kg/hr, 7.824 mls/hr Lorazepam (Lorazepam 2 Mg/Ml Vial) 2 mg IV Q4H PRN PRN Reason: Alcohol Withdrawal Last Admin: 11/27/21 03:06 Dose: 2 mg Morphine Sulfate (Morphine 2 Mg/1 Ml Inj) 2 mg IV Q4H PRN PRN Reason: Pain, Moderate (4-6) Morphine Sulfate (Morphine 4 Mg/1 Ml Inj) 4 mg IV Q4H PRN PRN Reason: Pain , Severe (7-10) Ondansetron HCl (Ondansetron 4 Mg/2 Ml Inj) 4 mg IV Q8H PRN PRN Reason: Nausea And Vomiting Sodium Chloride (Sodium Chloride 0.9% 10 Ml Flush Syringe) 10 ml IV BID INDERJIT Last Admin: 11/26/21 22:34 Dose: 10 ml Sodium Chloride (Sodium Chloride 0.9% 10 Ml Flush Syringe) 10 ml IV PRN PRN PRN Reason: LINE FLUSH Thiamine HCl (Thiamine 100 Mg Tab) 100 mg FEEDTUBE QDAY INDERJIT Review of Systems ROS unobtainable: due to mental status Exam - Vital Signs Vital signs: Vital Signs Temp Pulse Resp BP Pulse Ox 98.2 F 112 H 18 128/64 98 11/26/21 15:50 11/26/21 15:50 11/26/21 15:50 11/26/21 15:50 11/26/21 15:50 - General Appearance General appearance: well-developed, other (Patient is sedated, no acute distress) EENT: ATNC Neck: Present: neck supple Respiratory: Decreased Breath Sounds Heart: S1S2 Gastrointestinal: Present: normoactive bowel sounds Integumentary: warm and dry Neurologic: other (Sedated) Musculoskeletal: Present: joint swelling, other (Has 2+ edema to BLE) Results - Lab Results 11/27/21 02:03 11/27/21 10:19 Most recent lab results ABG pH 7.393 pH Units (7.350-7.450) 11/26/21 18:31 ABG pCO2 19.1 mm Hg 11/26/21 18:31 ABG pO2 110.8 mm Hg (80.0-90.0) H 11/26/21 18:31 ABG HCO3 11.4 mmol/L (20.0-26.0) L 11/26/21 18:31 ABG O2 Saturation 98.1 % (95.0-99.0) 11/26/21 18:31 Calcium 7.5 mg/dL (8.4-10.2) L 11/27/21 10:19 Magnesium 1.90 mg/dL (1.7-2.3) 11/26/21 16:24 Assessment and Plan Assessment: Hyponatremia likely Hypervolemic, also since have history of Alcohol Abuse could have Beer Potomania Questionable Alcohol withdrawal Anasarca Pneumonia Acidosis Plan: Recent serum sodium level is 110, admission sodium level was 102 S/P 3% hypertonic saline last night, this was incompleted. Patient received Hypertonic saline 500 ml@ 25 ml/hr for 12 hours. Patient corrected 7 mmol when it was stopped. Total correction at present is 8 mmol. Goal correction is 4-6 mmol in 24 hours not exceeding 8 mmol in 24 hours Neuro checks every 2 hours ordered. This patient is at risk for Osmotic Demyelination Checking BMP every 4 hours Obtain urine sodium and urine osmo levels If patient's serum sodium around 4:00 p.m is around 110, then we will need to resume Hypertonic saline at a low rate of 10-15 ml/hr If patient's sodium level at 4:00 p.m exceeds 110 then will need DDVAP and D5W. Ordered for nurse to please call our on-call automatic stacker with sodium levels results Due to patient having normal renal function, he may over-respond to diuretics but given Anarsarca, we will start with low dose Lasix at 20 mg IV BID and if patient becomes polyuric we will hold Lasix. Anasarca- Awaiting Echocardiogram Monitor I//O's Obtain daily weights Monitor sodium levels closely Plan of care reviewed by Dr. Diaz
--- NOTE | 2021-11-27 11:39 | Consultation ---
History of Present Illness - Reason for Consult Consult date: 11/27/21 Hyponatremia Past History Past Medical History: other (Alcohol abuse) Past Surgical History: No surgical history Social history: alcohol abuse Family history: hypertension Medications and Allergies Allergies Allergy/AdvReac Type Severity Reaction Status Date / Time No Known Allergies Allergy Verified 11/26/21 18:35 Active Meds: Active Medications Acetaminophen (Acetaminophen 325 Mg Tab) 650 mg PO Q4H PRN PRN Reason: Pain MILD(1-3)/Fever >100.5/OAKES Albuterol (Albuterol 2.5 Mg/3 Ml Nebu) 2.5 mg IH Q3HRT PRN PRN Reason: Shortness Of Breath Azithromycin (Azithromycin 250 Mg Tab) 500 mg PO QDAY INDERJIT; Protocol Famotidine (Famotidine 20 Mg Tab) 20 mg FEEDTUBE BID INDERJIT Folic Acid (Folic Acid 1 Mg Tab) 1 mg FEEDTUBE DAILY INDERJIT Ceftriaxone Sodium (Rocephin/Ns 2 Gm/100 Ml) 2 gm in 100 mls @ 200 mls/hr IV Q24HR INDERJIT; Protocol Dexmedetomidine HCl 400 mcg/ (Sodium Chloride) 100 mls @ 5.216 mls/hr IV TITRATE INDERJIT; Protocol Last Titration: 11/27/21 06:38 Dose: 0.3 mcg/kg/hr, 7.824 mls/hr Lorazepam (Lorazepam 2 Mg/Ml Vial) 2 mg IV Q4H PRN PRN Reason: Alcohol Withdrawal Last Admin: 11/27/21 03:06 Dose: 2 mg Morphine Sulfate (Morphine 2 Mg/1 Ml Inj) 2 mg IV Q4H PRN PRN Reason: Pain, Moderate (4-6) Morphine Sulfate (Morphine 4 Mg/1 Ml Inj) 4 mg IV Q4H PRN PRN Reason: Pain , Severe (7-10) Ondansetron HCl (Ondansetron 4 Mg/2 Ml Inj) 4 mg IV Q8H PRN PRN Reason: Nausea And Vomiting Sodium Chloride (Sodium Chloride 0.9% 10 Ml Flush Syringe) 10 ml IV BID INDERJIT Last Admin: 11/26/21 22:34 Dose: 10 ml Sodium Chloride (Sodium Chloride 0.9% 10 Ml Flush Syringe) 10 ml IV PRN PRN PRN Reason: LINE FLUSH Thiamine HCl (Thiamine 100 Mg Tab) 100 mg FEEDTUBE QDAY INDERJIT Exam - Constitutional Vitals: Temp Pulse Resp BP Pulse Ox 98.4 F 95 H 35 H 128/63 97 11/27/21 07:38 11/27/21 10:00 11/27/21 05:15 11/27/21 08:15 11/27/21 09:10 Results - Labs CBC & Chem 7: 11/27/21 02:03 11/27/21 10:19 Labs: Abnormal lab results 11/26/21 11/26/21 11/26/21 Range/Units 16:24 16:24 16:24 WBC 15.4 H (4.5-11.0) K/mm3 MCV 97 H (84-94) fl MCH 33 H (28-32) pg Lymph % (Auto) 9.6 L (13.4-35.0) % [place] % (Auto) 10.6 H (0.0-7.3) % [place] # (Auto) 1.6 H (0.0-0.8) K/mm3 Seg Neutrophils % 79.1 H (40.0-70.0) % Seg Neutrophils # 12.2 H (1.8-7.7) K/mm3 PT 16.2 H (12.2-14.9) Sec. INR 1.16 H (0.87-1.13) APTT (24.2-36.6) Sec. ABG pO2 (80.0-90.0) mm Hg ABG HCO3 (20.0-26.0) mmol/L ABG Base Excess (-2.0-3.0) mmol/L Sodium 102 L* (137-145) mmol/L Potassium 5.2 H (3.6-5.0) mmol/L Chloride 67.6 L (98-107) mmol/L Carbon Dioxide 13 L (22-30) mmol/L BUN 7 L (9-20) mg/dL Creatinine 0.5 L (0.8-1.3) mg/dL Glucose 127 H (75-100) mg/dL POC Glucose (70-105) mg/dL Lactic Acid (0.7-2.0) mmol/L Calcium 7.8 L (8.4-10.2) mg/dL Total Bilirubin 3.60 H (0.1-1.2) mg/dL Direct Bilirubin 1.6 H (0-0.2) mg/dL AST 232 H (5-40) units/L Alkaline Phosphatase 214 H (35-129) units/L NT-Pro-B Natriuret Pep (0-450) pg/mL Albumin 3.2 L (3.9-5) g/dL Lipase 78 H (13-60) units/L 11/26/21 11/26/21 11/26/21 Range/Units 16:24 16:24 18:31 WBC (4.5-11.0) K/mm3 MCV (84-94) fl MCH (28-32) pg Lymph % (Auto) (13.4-35.0) % [place] % (Auto) (0.0-7.3) % [place] # (Auto) (0.0-0.8) K/mm3 Seg Neutrophils % (40.0-70.0) % Seg Neutrophils # (1.8-7.7) K/mm3 PT (12.2-14.9) Sec. INR (0.87-1.13) APTT 38.3 H (24.2-36.6) Sec. ABG pO2 110.8 H (80.0-90.0) mm Hg ABG HCO3 11.4 L (20.0-26.0) mmol/L ABG Base Excess -10.7 L (-2.0-3.0) mmol/L Sodium (137-145) mmol/L Potassium (3.6-5.0) mmol/L Chloride (98-107) mmol/L Carbon Dioxide (22-30) mmol/L BUN (9-20) mg/dL Creatinine (0.8-1.3) mg/dL Glucose (75-100) mg/dL POC Glucose (70-105) mg/dL Lactic Acid (0.7-2.0) mmol/L Calcium (8.4-10.2) mg/dL Total Bilirubin (0.1-1.2) mg/dL Direct Bilirubin (0-0.2) mg/dL AST (5-40) units/L Alkaline Phosphatase (35-129) units/L NT-Pro-B Natriuret Pep 1043 H (0-450) pg/mL Albumin (3.9-5) g/dL Lipase (13-60) units/L 05/11/26/21 11/26/21 Range/Units 18:44 21:02 21:02 WBC (4.5-11.0) K/mm3 MCV (84-94) fl MCH (28-32) pg Lymph % (Auto) (13.4-35.0) % [place] % (Auto) (0.0-7.3) % [place] # (Auto) (0.0-0.8) K/mm3 Seg Neutrophils % (40.0-70.0) % Seg Neutrophils # (1.8-7.7) K/mm3 PT (12.2-14.9) Sec. INR (0.87-1.13) APTT (24.2-36.6) Sec. ABG pO2 (80.0-90.0) mm Hg ABG HCO3 (20.0-26.0) mmol/L ABG Base Excess (-2.0-3.0) mmol/L Sodium 101 L* (137-145) mmol/L Potassium (3.6-5.0) mmol/L Chloride 72.7 L (98-107) mmol/L Carbon Dioxide 11 L (22-30) mmol/L BUN (9-20) mg/dL Creatinine 0.4 L (0.8-1.3) mg/dL Glucose 128 H (75-100) mg/dL POC Glucose (70-105) mg/dL Lactic Acid 9.10 H* 4.70 H* (0.7-2.0) mmol/L Calcium 7.0 L (8.4-10.2) mg/dL Total Bilirubin (0.1-1.2) mg/dL Direct Bilirubin (0-0.2) mg/dL AST (5-40) units/L Alkaline Phosphatase (35-129) units/L NT-Pro-B Natriuret Pep (0-450) pg/mL Albumin (3.9-5) g/dL Lipase (13-60) units/L 11/26/21 11/26/21 11/27/21 Range/Units 21:30 22:31 02:03 WBC 15.5 H (4.5-11.0) K/mm3 MCV 98 H (84-94) fl MCH 33 H (28-32) pg Lymph % (Auto) 12.1 L (13.4-35.0) % [place] % (Auto) 12.8 H (0.0-7.3) % [place] # (Auto) 2.0 H (0.0-0.8) K/mm3 Seg Neutrophils % 74.4 H (40.0-70.0) % Seg Neutrophils # 11.5 H (1.8-7.7) K/mm3 PT (12.2-14.9) Sec. INR (0.87-1.13) APTT (24.2-36.6) Sec. ABG pO2 (80.0-90.0) mm Hg ABG HCO3 (20.0-26.0) mmol/L ABG Base Excess (-2.0-3.0) mmol/L Sodium 105 L* (137-145) mmol/L Potassium 5.2 H (3.6-5.0) mmol/L Chloride 74.0 L (98-107) mmol/L Carbon Dioxide 15 L (22-30) mmol/L BUN (9-20) mg/dL Creatinine 0.6 L (0.8-1.3) mg/dL Glucose 132 H (75-100) mg/dL POC Glucose 127 H (70-105) mg/dL Lactic Acid (0.7-2.0) mmol/L Calcium 7.3 L (8.4-10.2) mg/dL Total Bilirubin (0.1-1.2) mg/dL Direct Bilirubin (0-0.2) mg/dL AST (5-40) units/L Alkaline Phosphatase (35-129) units/L NT-Pro-B Natriuret Pep (0-450) pg/mL Albumin (3.9-5) g/dL Lipase (13-60) units/L 11/27/21 11/27/21 11/27/21 Range/Units 02:03 04:45 10:19 WBC (4.5-11.0) K/mm3 MCV (84-94) fl MCH (28-32) pg Lymph % (Auto) (13.4-35.0) % [place] % (Auto) (0.0-7.3) % [place] # (Auto) (0.0-0.8) K/mm3 Seg Neutrophils % (40.0-70.0) % Seg Neutrophils # (1.8-7.7) K/mm3 PT (12.2-14.9) Sec. INR (0.87-1.13) APTT (24.2-36.6) Sec. ABG pO2 (80.0-90.0) mm Hg ABG HCO3 (20.0-26.0) mmol/L ABG Base Excess (-2.0-3.0) mmol/L Sodium 109 L* 110 L* 110 L* (137-145) mmol/L Potassium (3.6-5.0) mmol/L Chloride 74.8 L 77.4 L 81.5 L (98-107) mmol/L Carbon Dioxide 17 L 16 L 18 L (22-30) mmol/L BUN (9-20) mg/dL Creatinine 0.6 L 0.6 L 0.6 L (0.8-1.3) mg/dL Glucose 107 H 117 H 109 H (75-100) mg/dL POC Glucose (70-105) mg/dL Lactic Acid (0.7-2.0) mmol/L Calcium 7.9 L 7.8 L 7.5 L (8.4-10.2) mg/dL Total Bilirubin (0.1-1.2) mg/dL Direct Bilirubin (0-0.2) mg/dL AST (5-40) units/L Alkaline Phosphatase (35-129) units/L NT-Pro-B Natriuret Pep (0-450) pg/mL Albumin (3.9-5) g/dL Lipase (13-60) units/L
[2021-11-27 12:15] LABS: Bilirubin,Urine NEG (Negative); Blood,Urine NEG (Negative); Color,Urine Amber (Yellow); Protein,Urine <15 mg/dL mg/dL (Negative); RBC,Urine < 1.0 /HPF (0.0-6.0)
--- NOTE | 2021-11-27 16:28 | XRay Report ---
ABDOMEN 1 VIEW(S) INDICATION / CLINICAL INFORMATION: dobhoff placement. COMPARISON: None available. FINDINGS: TUBES / LINES: Feeding tube tip proximal stomach. BOWEL GAS PATTERN: Scattered colonic gas remains. ADDITIONAL FINDINGS: No significant additional findings. Signer Name: Augusto Mendez MD Signed: 11/27/2021 4:23 PM Workstation Name: [id number]
[2021-11-27 16:29] LABS: Blood Urea Nitrogen 13 mg/dL (9-20); Calcium 7.7 mg/dL (8.4-10.2); Hemolysis Index 13
--- NOTE | 2021-11-27 16:30 | Progress Note ---
<JORGEIVONNEIna - Last Filed: 11/27/21 16:26> Assessment and Plan Assessment and plan: This is a 36-year-old male with EtOH abuse admitted with severe hyponatremia, severe hypochloremia, lactic acidosis, leukocytosis and COVID-19 PUI Neuro: Acute metabolic encephalopathy, h/o EtOH abuse -[facility] protocol -Precedex drip -Bilateral wrist restraints in place for safety -CT head shows no acute abnormalities -Avoid delirium -Reorientation as needed -Maintain sleep-wake cycle -As needed analgesia -Admit serum alcohol 0.04 -Thiamine, folic acid -Neurochecks every 2 Cardiac: NAD -Cardiology consulted, appreciate recommendations -Blood pressure monitoring per protocol -Echocardiogram pending -Admit proBNP 1043 Respiratory: Acute hypoxic respiratory failure -CCM consulted, appreciate recommendations -Currently on NC -Wean supplemental oxygen as tolerated -ABG and CXR noted -Pulmonary hygiene -SPO2 monitoring GI: Obesity, transaminitis -24 hours not recorded -PPI -NTR consulted for tube feedings -Abdominal ultrasound pending -Trend LFTs : Severe hyponatremia, hypochloremia, metabolic acidosis, hyperkalemia (resolved) -Nephrology consulted, appreciate recommendations -Per nephrology: 1. BMP every 4, patient sodium at 1600 is around 110 then will need to resume hypertonic saline at a rate of 10 to 15 mL/hr 2. If sodium by 1400 exceeds 110, then will need DDAVP and D5W -Strict intake and output -Renally dose medications -Avoid nephrotoxic medications -Daily weights -Urine osmolality and sodium pending, serum osmo pending -Lasix twice daily -S/p hypertonic saline -BMP every 4hr ID: COVID-19 PUI, lactic acidosis, r/o SBP -Infectious disease consulted, appreciate recommendation -Antibiotic therapy with azithromycin and Rocephin -COVID-19 PCR negative -Diagnostic paracentesis planned for tomorrow -f/u blood culture -Monitor WBC and temperature curve Endo: NAD -Avoid hypoglycemia -SSI -Accu-Cheks q. 6hr Heme: Leukocytosis -Trend CBC -Transfuse hemoglobin less than 7 -Monitor for signs of bleeding -heparin subq -SCDs to BLE while in bed The high probability of a clinically significant, sudden or life threatening deterioration of the [multi] system(s) required my full and direct attention, intervention and personal management. The aggregate critical care time was [60] minutes. This time is in addition to time spent performing reported procedures but includes the following: [x] Data Review and interpretation [x] Patient assessment and monitoring of vital signs [x] Documentation [x] Medication orders and management Disposition Plan: icu Total Time Spent with Patient (Minutes): 60 History Interval history: This is a 36 year old male with EtOH abuse who presented to the ED on 11/26 with complaints of diaphoresis, generalized abdominal swelling, leg edema and shortness of breath with worsening symptoms over the past 5 days via EMS. Last reported alcohol intake was 11/25 per ED documentation. In the ED patient was placed on supplemental oxygen and repositioned with improvement in diaphoresis and respiratory distress. Workup in the ED showed groundglass opacities suggestive of edema versus infiltrate on CXR, severe hyponatermia, severe hypochloremia, lactic acidosis, leukocytosis and nephrology was consulted. CT head showed no acute abnormalityand both CTA chest and CT abdomen/pelvis showed diffuse groundglass airspace opacities, hepatic cirrhosis and generalized anasarca. He was given hypertonic saline at 25mL/hr and BMP ordered every 4 hours. Patient was admitted to the hospitalist service with consult to [facility] and a visual education teacher as a COVID-19 PUI, severe hyponatremia. Hospital course to date: 11/27: Obtain abd US, echo, continue BMP q 4 hoyrs, DHT placed. Continue neuro checks q2, COVID PCR (-), obtain urine sodium and osmo, possible diagnostic paracentisis tomorrow. Hospitalist Physical - Constitutional Vitals: Temp Pulse Resp BP Pulse Ox 98.4 F 95 H 18 128/63 97 11/27/21 07:38 11/27/21 11:15 11/27/21 11:15 11/27/21 08:15 11/27/21 11:15 General appearance: Present: mild distress - EENT Eyes: Present: PERRL, EOM intact ENT: poor dentition - Neck Neck: Present: normal ROM - Respiratory Respiratory effort: normal Respiratory: bilateral: diminished - Cardiovascular Rhythm: regular Heart Sounds: Present: S1 & S2. Absent: systolic murmur, diastolic murmur - Extremities Extremities: no ischemia, pulses intact, pulses symmetrical, No edema, normal temperature, normal color, Full ROM Peripheral Pulses: within normal limits - Abdominal General gastrointestinal: soft, non-tender, non-distended, normal bowel sounds - Integumentary Integumentary: Present: warm, dry - Psychiatric Psychiatric: other - Neurologic Neurologic: moves all extremities, other (intact cough/gag, response to painful stimuli) - Allied Health Allied health notes reviewed: nursing, RT Results - Labs CBC & Chem 7: 11/27/21 02:03 11/27/21 10:19 Labs: Laboratory Last Values WBC 15.5 K/mm3 (4.5-11.0) H 11/27/21 02:03 RBC 4.30 M/mm3 (3.65-5.03) 11/27/21 02:03 Hgb 14.4 gm/dl (11.8-15.2) 11/27/21 02:03 Hct 42.1 % (35.5-45.6) 11/27/21 02:03 MCV 98 fl (84-94) H 11/27/21 02:03 MCH 33 pg (28-32) H 11/27/21 02:03 MCHC 34 % (32-34) 11/27/21 02:03 RDW 14.1 % (13.2-15.2) 11/27/21 02:03 Plt Count 227 K/mm3 (140-440) 11/27/21 02:03 Lymph % (Auto) 12.1 % (13.4-35.0) L 11/27/21 02:03 [place] % (Auto) 12.8 % (0.0-7.3) H 11/27/21 02:03 Eos % (Auto) 0.2 % (0.0-4.3) 11/27/21 02:03 Baso % (Auto) 0.5 % (0.0-1.8) 11/27/21 02:03 Lymph # (Auto) 1.9 K/mm3 (1.2-5.4) 11/27/21 02:03 [place] # (Auto) 2.0 K/mm3 (0.0-0.8) H 11/27/21 02:03 Eos # (Auto) 0.0 K/mm3 (0.0-0.4) 11/27/21 02:03 Baso # (Auto) 0.1 K/mm3 (0.0-0.1) 11/27/21 02:03 Seg Neutrophils % 74.4 % (40.0-70.0) H 11/27/21 02:03 Seg Neutrophils # 11.5 K/mm3 (1.8-7.7) H 11/27/21 02:03 PT 16.2 Sec. (12.2-14.9) H 11/26/21 16:24 INR 1.16 (0.87-1.13) H 11/26/21 16:24 APTT 38.3 Sec. (24.2-36.6) H 11/26/21 16:24 ABG pH 7.393 pH Units (7.350-7.450) 11/26/21 18:31 ABG pCO2 19.1 mm Hg 11/26/21 18: ABG pO2 110.8 mm Hg (80.0-90.0) H 11/26/21 18:31 ABG HCO3 11.4 mmol/L (20.0-26.0) L 11/26/21 18:31 ABG O2 Saturation 98.1 % (95.0-99.0) 11/26/21 18:31 ABG O2 Content 20.6 (0.0-44) 11/26/21 18:31 ABG Base Excess -10.7 mmol/L (-2.0-3.0) L 11/26/21 18:31 ABG Hemoglobin 15.2 gm/dl (14.0-18.0) 11/26/21 18:31 ABG Carboxyhemoglobin 1.6 % (0.0-5.0) 11/26/21 18:31 ABG Methemoglobin 0.7 % (0.0-1.5) 11/26/21 18:31 Oxyhemoglobin 95.9 % (95.0-99.0) 11/26/21 18: FiO2 28 % 11/26/21 18:31 Sodium 110 mmol/L (137-145) L* 11/27/21 10:19 Potassium 4.7 mmol/L (3.6-5.0) 11/27/21 10:19 Chloride 81.5 mmol/L (98-107) L 11/27/21 10:19 Carbon Dioxide 18 mmol/L (22-30) L 11/27/21 10:19 Anion Gap 15 mmol/L 11/27/21 10:19 BUN 12 mg/dL (9-20) 11/27/21 10:19 Creatinine 0.6 mg/dL (0.8-1.3) L 11/27/21 10:19 Estimated GFR > 60 ml/min 11/27/21 10:19 BUN/Creatinine Ratio 20 % 11/27/21 10:19 Glucose 109 mg/dL (75-100) H 11/27/21 10:19 POC Glucose 113 mg/dL (70-105) H 11/27/21 13:47 Ketones Quantitative Negative (Negative) 11/26/21 16:24 Lactic Acid 4.70 mmol/L (0.7-2.0) H* 11/26/21 21:02 Calcium 7.5 mg/dL (8.4-10.2) L 11/27/21 10:19 Magnesium 1.90 mg/dL (1.7-2.3) 11/26/21 16:24 Total Bilirubin 3.60 mg/dL (0.1-1.2) H 11/26/21 16:24 Direct Bilirubin 1.6 mg/dL (0-0.2) H 11/26/21 16:24 Indirect Bilirubin 2.0 mg/dL 11/26/21 16:24 AST 232 units/L (5-40) H 11/26/21 16:24 ALT 42 units/L (7-56) 11/26/21 16:24 Alkaline Phosphatase 214 units/L (35-129) H 11/26/21 16:24 Ammonia 59.0 umol/L (25-60) 11/26/21 18:51 NT-Pro-B Natriuret Pep 1043 pg/mL (0-450) H 11/26/21 16:24 Total Protein 7.2 g/dL (6.3-8.2) 11/26/21 16:24 Albumin 3.2 g/dL (3.9-5) L 11/26/21 16:24 Albumin/Globulin Ratio 0.8 % 11/26/21 16:24 Lipase 78 units/L (13-60) H 11/26/21 16:24 TSH 3.910 mlU/mL (0.270-4.200) 11/26/21 18:44 Free T4 1.46 ng/dL (0.76-1.46) 11/26/21 18:44 Urine Color Marquita (Yellow) 11/26/21 11:00 Urine Turbidity Clear (Clear) 11/26/21 11:00 Urine pH 6.0 (5.0-7.0) 11/26/21 11:00 Ur Specific [place] 1.021 (1.003-1.030) 11/26/21 11:00 Urine Protein <15 mg/dl mg/dL (Negative) 11/26/21 11:00 Urine Glucose (UA) Neg mg/dL (Negative) 11/26/21 11:00 Urine Ketones Tr mg/dL (Negative) 11/26/21 11:00 Urine Blood Neg (Negative) 11/26/21 11:00 Urine Nitrite Neg (Negative) 11/26/21 11:00 Urine Bilirubin Neg (Negative) 11/26/21 11:00 Urine Urobilinogen 4.0 mg/dL (<2.0) 11/26/21 11:00 Ur Leukocyte Esterase Neg (Negative) 11/26/21 11:00 Urine WBC (Auto) 1.0 /HPF (0.0-6.0) 11/26/21 11:00 Urine RBC (Auto) < 1.0 /HPF (0.0-6.0) 11/26/21 11:00 U Epithel Cells (Auto) < 1.0 /HPF (0-13.0) 11/26/21 11:00 Urine Sodium 10 mmol/L 11/27/21 11:00 Plasma/Serum Alcohol 0.04 % (0-0.07) 11/26/21 18:44 Coronavirus (PCR) Negative (Negative) 11/27/21 11:00 Microbiology: Microbiology 11/26/21 21:02 Peripheral/Venous Blood Culture - Preliminary Culture in Progress 11/26/21 21:02 Peripheral/Venous Blood Culture - Preliminary Culture in Progress Reeves/IV: Voiding Method Condom Catheter Active Medications - Current Medications Current Medications: Generic Name Dose Route Start Last Admin Trade Name Freq PRN Reason Stop Dose Admin Acetaminophen 650 mg 11/26/21 21:59 Acetaminophen 325 Mg Tab PO Q4H PRN Pain MILD(1-3)/Fever >100.5/OAKES Albuterol 2.5 mg 11/26/21 21:59 Albuterol 2.5 Mg/3 Ml Nebu Q3HRT PRN Shortness Of Breath Azithromycin 500 mg 11/27/21 10:00 Azithromycin 250 Mg Tab PO QDAY [facility] Protocol Famotidine 20 mg 11/27/21 11:00 Famotidine 20 Mg Tab FEEDTUBE BID INDERJIT Folic Acid 1 mg 11/27/21 11:00 Folic Acid 1 Mg Tab FEEDTUBE DAILY INDERJIT Furosemide 20 mg 11/27/21 18:00 Furosemide 20 Mg/2 Ml Inj IV 0600,1800 [facility] Heparin Sodium (Porcine) 5,000 unit 11/27/21 22:00 Heparin 5,000 Unit/1 Ml Vial SUB-Q Q12HR INDERJIT Ceftriaxone Sodium 2 gm in 100 mls @ 200 mls/hr 11/27/21 10:00 11/27/21 11:00 Rocephin/Ns 2 Gm/100 Ml IV 200 mls/hr Q24HR INDERJIT Administration Protocol Dexmedetomidine HCl 400 mcg/ 100 mls @ 5.216 mls/hr 11/27/21 05:00 11/27/21 06:38 Sodium Chloride IV 0.3 mcg/kg/hr TITRATE INDERJIT 7.824 mls/hr Titration Protocol 0.2 MCG/KG/HR Lorazepam 2 mg 11/26/21 22:45 11/27/21 03:06 Lorazepam 2 Mg/Ml Vial IV 2 mg Q4H PRN Administration Alcohol Withdrawal Morphine Sulfate 2 mg 11/26/21 21:59 Morphine 2 Mg/1 Ml Inj IV Q4H PRN Pain, Moderate (4-6) Morphine Sulfate 4 mg 11/26/21 21:59 Morphine 4 Mg/1 Ml Inj IV Q4H PRN Pain , Severe (7-10) Ondansetron HCl 4 mg 11/26/21 21:59 Ondansetron 4 Mg/2 Ml Inj IV Q8H PRN Nausea And Vomiting Sodium Chloride 10 ml 11/26/21 22:00 11/27/21 11:00 Sodium Chloride 0.9% 10 Ml Flush Syringe IV 10 ml BID INDERJIT Administration Sodium Chloride 10 ml 11/26/21 21:59 Sodium Chloride 0.9% 10 Ml Flush Syringe IV PRN PRN LINE FLUSH Thiamine HCl 100 mg 11/27/21 11:00 Thiamine 100 Mg Tab FEEDTUBE QDAY [facility] <SIVAN KINSEY - Last Filed: 11/28/21 07:43> Assessment and Plan Assessment and plan: I saw and evaluated the patient. Discussed with the nurse practitioner and agree with their findings and plan as documented in this note. Hospitalist Physical - Constitutional Vitals: Temp Pulse Resp BP Pulse Ox 97.6 F 63 18 106/69 99 11/28/21 04:00 11/28/21 07:30 11/28/21 07:30 11/28/21 07:30 11/28/21 07:30 Results - Labs CBC & Chem 7: 11/28/21 05:04 11/28/21 05:04 Labs: Laboratory Last Values WBC 6.2 K/mm3 (4.5-11.0) 11/28/21 05:04 RBC 3.44 M/mm3 (3.65-5.03) L 11/28/21 05:04 Hgb 11.8 gm/dl (11.8-15.2) 11/28/21 05:04 Hct 34.1 % (35.5-45.6) L D 11/28/21 05:04 MCV 99 fl (84-94) H 11/28/21 05:04 MCH 34 pg (28-32) H 11/28/21 05:04 MCHC 35 % (32-34) H 11/28/21 05:04 RDW 14.2 % (13.2-15.2) 11/28/21 05:04 Plt Count 145 K/mm3 (140-440) 11/28/21 05:04 Lymph % (Auto) 12.1 % (13.4-35.0) L 11/27/21 02:03 Johnston % (Auto) 12.8 % (0.0-7.3) H 11/27/21 02:03 Eos % (Auto) 0.2 % (0.0-4.3) 11/27/21 02:03 Baso % (Auto) 0.5 % (0.0-1.8) 11/27/21 02:03 Lymph # (Auto) 1.9 K/mm3 (1.2-5.4) 11/27/21 02:03 Johnston # (Auto) 2.0 K/mm3 (0.0-0.8) H 11/27/21 02:03 Eos # (Auto) 0.0 K/mm3 (0.0-0.4) 11/27/21 02:03 Baso # (Auto) 0.1 K/mm3 (0.0-0.1) 11/27/21 02:03 Seg Neutrophils % 74.4 % (40.0-70.0) H 11/27/21 02:03 Seg Neutrophils # 11.5 K/mm3 (1.8-7.7) H 11/27/21 02:03 PT 16.2 Sec. (12.2-14.9) H 11/26/21 16:24 INR 1.16 (0.87-1.13) H 11/26/21 16:24 APTT 38.3 Sec. (24.2-36.6) H 11/26/21 16:24 ABG pH 7.393 pH Units (7.350-7.450) 11/26/21 18:31 ABG pCO2 19.1 mm Hg 11/26/21 18:31 ABG pO2 110.8 mm Hg (80.0-90.0) H 11/26/21 18:31 ABG HCO3 11.4 mmol/L (20.0-26.0) L 11/26/21 18:31 ABG O2 Saturation 98.1 % (95.0-99.0) 11/26/21 18:31 ABG O2 Content 20.6 (0.0-44) 11/26/21 18:31 ABG Base Excess -10.7 mmol/L (-2.0-3.0) L 11/26/21 18:31 ABG Hemoglobin 15.2 gm/dl (14.0-18.0) 11/26/21 18:31 ABG Carboxyhemoglobin 1.6 % (0.0-5.0) 11/26/21 18:31 ABG Methemoglobin 0.7 % (0.0-1.5) 11/26/21 18:31 Oxyhemoglobin 95.9 % (95.0-99.0) 11/26/21 18:31 FiO2 28 % 11/26/21 18:31 Sodium 112 mmol/L (137-145) L* 11/28/21 05:04 Potassium 4.0 mmol/L (3.6-5.0) 11/28/21 05:04 Chloride 80.4 mmol/L (98-107) L 11/28/21 05:04 Carbon Dioxide 19 mmol/L (22-30) L 11/28/21 05:04 Anion Gap 17 mmol/L 11/28/21 05:04 BUN 14 mg/dL (9-20) 11/28/21 05:04 Creatinine 0.5 mg/dL (0.8-1.3) L 11/28/21 05:04 Estimated GFR > 60 ml/min 11/28/21 05:04 BUN/Creatinine Ratio 28 % 11/28/21 05:04 Glucose 89 mg/dL (75-100) 11/28/21 05:04 POC Glucose 113 mg/dL (70-105) H 11/27/21 13:47 Ketones Quantitative Negative (Negative) 11/26/21 16:24 Osmolality 243 Mosm/kg 11/27/21 11:09 Lactic Acid 4.70 mmol/L (0.7-2.0) H* 11/26/21 21:02 Calcium 7.7 mg/dL (8.4-10.2) L 11/28/21 05:04 Phosphorus 3.20 mg/dL (2.5-4.5) 11/28/21 05:04 Magnesium 1.90 mg/dL (1.7-2.3) 11/28/21 05:04 Total Bilirubin 2.20 mg/dL (0.1-1.2) H 11/28/21 05:04 Direct Bilirubin 1.2 mg/dL (0-0.2) H 11/28/21 05:04 Indirect Bilirubin 1.0 mg/dL 11/28/21 05:04 AST 166 units/L (5-40) H 11/28/21 05:04 ALT 37 units/L (7-56) 11/28/21 05:04 Alkaline Phosphatase 138 units/L (35-129) H 11/28/21 05:04 Ammonia 59.0 umol/L (25-60) 11/26/21 18:51 NT-Pro-B Natriuret Pep 1043 pg/mL (0-450) H 11/26/21 16:24 Total Protein 5.6 g/dL (6.3-8.2) L D 11/28/21 05:04 Albumin 2.5 g/dL (3.9-5) L 11/28/21 05:04 Albumin/Globulin Ratio 0.8 % 11/28/21 05:04 Lipase 78 units/L (13-60) H 11/26/21 16:24 TSH 3.910 mlU/mL (0.270-4.200) 11/26/21 18:44 Free T4 1.46 ng/dL (0.76-1.46) 11/26/21 18:44 Urine Color Marquita (Yellow) 11/26/21 11:00 Urine Turbidity Clear (Clear) 11/26/21 11:00 Urine pH 6.0 (5.0-7.0) 11/26/21 11:00 Ur Specific [place] 1.021 (1.003-1.030) 11/26/21 11:00 Urine Protein <15 mg/dl mg/dL (Negative) 11/26/21 11:00 Urine Glucose (UA) Neg mg/dL (Negative) 11/26/21 11:00 Urine Ketones Tr mg/dL (Negative) 11/26/21 11:00 Urine Blood Neg (Negative) 11/26/21 11:00 Urine Nitrite Neg (Negative) 11/26/21 11:00 Urine Bilirubin Neg (Negative) 11/26/21 11:00 Urine Urobilinogen 4.0 mg/dL (<2.0) 11/26/21 11:00 Ur Leukocyte Esterase Neg (Negative) 11/26/21 11:00 Urine WBC (Auto) 1.0 /HPF (0.0-6.0) 11/26/21 11:00 Urine RBC (Auto) < 1.0 /HPF (0.0-6.0) 11/26/21 11:00 U Epithel Cells (Auto) < 1.0 /HPF (0-13.0) 11/26/21 11:00 Urine Osmolality 404 Mosm/kg 11/27/21 11:00 Urine Sodium 10 mmol/L 11/27/21 11:00 Plasma/Serum Alcohol 0.04 % (0-0.07) 11/26/21 18:44 Coronavirus (PCR) Negative (Negative) 11/27/21 11:00 Microbiology: Microbiology 11/26/21 21:02 Peripheral/Venous Blood Culture - Preliminary NO GROWTH AFTER 24 HOURS 11/26/21 21:02 Peripheral/Venous Blood Culture - Preliminary NO GROWTH AFTER 24 HOURS Reeves/IV: Voiding Method Indwelling Catheter Active Medications - Current Medications Current Medications: Generic Name Dose Route Start Last Admin Trade Name Freq PRN Reason Stop Dose Admin Acetaminophen 650 mg 11/26/21 21:59 Acetaminophen 325 Mg Tab PO Q4H PRN Pain MILD(1-3)/Fever >100.5/OAKES Albuterol 2.5 mg 11/26/21 21:59 Albuterol 2.5 Mg/3 Ml Nebu IH Q3HRT PRN Shortness Of Breath Azithromycin 500 mg 11/27/21 10:00 11/27/21 19:07 Azithromycin 250 Mg Tab PO Not Given QDAY INDERJIT Protocol Famotidine 20 mg 11/27/21 11:00 11/27/21 21:38 Famotidine 20 Mg Tab FEEDTUBE 20 mg BID INDERJIT Administration Folic Acid 1 mg 11/27/21 11:00 11/27/21 19:07 Folic Acid 1 Mg Tab FEEDTUBE Not Given DAILY INDERJIT Furosemide 20 mg 11/27/21 18:00 11/28/21 06:11 Furosemide 20 Mg/2 Ml Inj IV Not Given 0600,1800 INDERJ[facility] Heparin Sodium (Porcine) 5,000 unit 11/27/21 22:00 11/27/21 21:38 Heparin 5,000 Unit/1 Ml Vial SUB-Q 5,000 unit Q12HR INDERJIT Administration Ceftriaxone Sodium 2 gm in 100 mls @ 200 mls/hr 11/27/21 10:00 11/27/21 11:00 Rocephin/Ns 2 Gm/100 Ml IV 200 mls/hr Q24HR INDERJIT Administration Protocol Dexmedetomidine HCl 400 mcg/ 100 mls @ 5.216 mls/hr 11/27/21 05:00 11/27/21 19:20 Sodium Chloride IV 0.3 mcg/kg/hr TITRATE INDERJIT 7.824 mls/hr Administration Protocol 0.2 MCG/KG/HR Dextrose 500 mls @ 500 mls/hr 11/27/21 18:00 11/27/21 19:01 D5w IV 500 mls/hr DIRECT INDERJIT Administration Dextrose 1,000 mls @ 1,000 mls/hr 11/28/21 01:00 11/28/21 00:50 D5w IV 1,000 mls/hr DIRECT INDERJIT Administration Lorazepam 2 mg 11/26/21 22:45 11/27/21 03:06 Lorazepam 2 Mg/Ml Vial IV 2 mg Q4H PRN Administration Alcohol Withdrawal Morphine Sulfate 2 mg 11/26/21 21:59 Morphine 2 Mg/1 Ml Inj IV Q4H PRN Pain, Moderate (4-6) Morphine Sulfate 4 mg 11/26/21 21:59 Morphine 4 Mg/1 Ml Inj IV Q4H PRN Pain , Severe (7-10) Ondansetron HCl 4 mg 11/26/21 21:59 Ondansetron 4 Mg/2 Ml Inj IV Q8H PRN Nausea And Vomiting Sodium Chloride 10 ml 11/26/21 22:00 11/27/21 21:38 Sodium Chloride 0.9% 10 Ml Flush Syringe IV 10 ml BID INDERJIT Administration Sodium Chloride 10 ml 11/26/21 21:59 Sodium Chloride 0.9% 10 Ml Flush Syringe IV PRN PRN LINE FLUSH Thiamine HCl 100 mg 11/27/21 11:00 11/27/21 19:09 Thiamine 100 Mg Tab FEEDTUBE Not Given QDAY [facility] Nutrition/Malnutrition Assess - Dietary Evaluation Nutrition/Malnutrition Findings: Nutrition Notes Start: 11/27/21 18:57 Freq: Status: Active Protocol: Document 11/27/21 18:57 LYN (Rec: 11/27/21 19:14 LYN [id number]) Nutrition Notes Need for Assessment generated from: MD Order Initial or Follow up Assessment Current Diagnosis Respiratory Failure Other Pertinent Diagnosis COVID-19 pui, Metabolic Encephalopathy, Hyponatremia, EtOH Abuse, ... Current Diet NPO (since 11/27 11:01). Labs/Tests 11/27: Na 114, Cl 86.0, CO2 19 , Crea 0.6, Glu 107, Ca 7.7. Pertinent Medications 11/27: Nutritionally unremarkable. Height 5 ft 4 in Weight 104.326 kg [place] Body Weight (kg) 59.09 BMI 39.4 Weight change and time frame None provided on admission. Weight Status Morbidly Obese Subjective/Other Information RD consult for malnutrition assessment. Pt currently on NPO. Pt is on Nasal Cannula, O2 saturation @ 97%, according to Physical Assessment History notes. Pt presents Bilateral-LE & Bilateral-UE Pitting Edema 2+, according to Physical Assessment History notes. Pt shows no signs of concern for risk of malnutrition at the timePt currently on NPO. Percent of energy/protein needs met: Pt currently on NPO. Burn Absent Trauma Absent GI Symptoms None Food Allergy No Skin Integrity/Comment Assessment WNL. Current % PO Other Minimum of two criteria No Fluid Accumulation Mild (non-severe) Reduced [employer] Strength N/A (non-severe) Protein-Calorie Malnutrition N\A #1 Nutrition Diagnosis No nutrition diagnosis at this time Is patient on ventilator? No Is Patient Ambulatory and/or Out of Bed Yes REE-([facility]-ambulatory/OOB) [ 2456.038 [id number]] Kcal/Kg value to use for calculation 14 Approximate Energy Requirements Using 1461 kcal/Kg Calculation Used for Recommendations Kcal/kg Additional Notes Protein: 0.8-1 g/Kg AdjBW; 66- 82 g/day. Fluids: 1 ml/Kcal, or as per MD. Nutrition Intervention Follow-Up By: 11/29/21 Additional Comments When pertinent, start monitoring food tolerance, %PO intake of meals, and BM.
[2021-11-27 16:33] LABS: BUN/Creatinine Ratio 22
[2021-11-27 17:00] LABS: Osmolality,Urine 404 Mosm/kg
[2021-11-27] MEDS ORDERED: THIAMINE 100 MG, FOLIC ACID 1 MG, MULTIPLE VITAMIN INJ, ADULT 10 ML in SODIUM CHLORIDE ... IV SCH (18:00)
[2021-11-27] MEDS ORDERED: DESMOPRESSIN 4 MCG/ML VIAL IV ONE (18:00)
[2021-11-27] MEDS ORDERED: DEXTROSE 5% IN WATER 500 ML IV SCH (18:00)
[2021-11-27] MEDS: FOLIC ACID 1 MG TAB FEEDTUBE SCH (19:07)
[2021-11-27] MEDS: MULTIVITAMIN / MINERAL ORAL LIQUID 15 ML FEEDTUBE SCH (19:07)
[2021-11-27] MEDS: FAMOTIDINE 20 MG TAB FEEDTUBE SCH ×2 (19:08→21:38)
[2021-11-27] MEDS: THIAMINE 100 MG TAB FEEDTUBE SCH (19:09)
--- NOTE | 2021-11-27 20:12 | XRay Report ---
ABDOMEN 1 VIEW(S) INDICATION / CLINICAL INFORMATION: NG tube placement verification. COMPARISON: Earlier today FINDINGS: TUBES / LINES: Dobbhoff tube repositioned distally near the distal stomach/duodenal bulb. BOWEL GAS PATTERN: No significant abnormality. FREE AIR / EXTRALUMINAL GAS: None seen. ADDITIONAL FINDINGS: No significant additional findings. IMPRESSION: 1. DHT as above. Signer Name: Dayron Garcia MD Signed: 11/27/2021 8:08 PM Workstation Name: [id number]
--- NOTE | 2021-11-27 20:17 | Ultrasound Report ---
LIMITED RUQ ABDOMINAL ULTRASOUND INDICATION: elevated lfts. COMPARISON: CT abdomen/pelvis from 11/26/2021. FINDINGS: Pancreas: Poorly demonstrated. Abdominal Aorta: Normal size. IVC: No significant abnormality. Liver: The liver measures 16.1 cm in length. Diffusely echogenic parenchyma with no focal mass. Norm al hepatopedal blood flow in the main portal vein. Gallbladder: No significant abnormality. Bile ducts: No significant abnormality. Common bile duct measures 4 mm. Right kidney: No significant abnormality visualized.. Free fluid: None. Additional Findings: None. IMPRESSION: 1. Diffusely echogenic liver, most commonly seen with steatosis. Otherwise nothing acute. Signer Name: Dayron Garcia MD Signed: 11/27/2021 8:12 PM Workstation Name: [id number]
[2021-11-27] MEDS: FUROSEMIDE 20 MG/2 ML INJ IV SCH (21:18)
[2021-11-27] MEDS: HEPARIN 5,000 UNIT/1 ML VIAL SUB-Q SCH (21:38)
[2021-11-27 23:39] LABS: Blood Urea Nitrogen 14 mg/dL (9-20); Calcium 7.8 mg/dL (8.4-10.2); Hemolysis Index 42
[2021-11-27 23:50] LABS: BUN/Creatinine Ratio 28
[2021-11-28] MEDS ORDERED: DEXTROSE 5% IN WATER 1,000 ML IV SCH (01:00)
[2021-11-28] MEDS ORDERED: DESMOPRESSIN ACETATE 2 MCG in SODIUM CHLORIDE 0.9% 50 ML IV ONE (01:15)
[2021-11-28] MEDS ORDERED: DESMOPRESSIN 4 MCG/ML VIAL IV ONE (01:30)
[2021-11-28 02:26] LABS: Blood Urea Nitrogen 14 mg/dL (9-20); Calcium 7.7 mg/dL (8.4-10.2); Hemolysis Index 5
[2021-11-28 02:27] LABS: BUN/Creatinine Ratio 28
[2021-11-28 05:27] LABS: Hematocrit 34.1 % (35.5-45.6); Hemoglobin 11.8 gm/dl (11.8-15.2); Mean Corpuscular HGB Conc 35 % (32-34); Mean Corpuscular Volume 99 fl (84-94); Platelet Count 145 K/mm3 (140-440); Red Blood Count 3.44 M/mm3 (3.65-5.03); Red Cell Distribution Width 14.2 % (13.2-15.2)
[2021-11-28 05:36] LABS: Blood Urea Nitrogen 14 mg/dL (9-20); Calcium 7.7 mg/dL (8.4-10.2); Hemolysis Index 31
[2021-11-28 05:41] LABS: Albumin 2.5 g/dL (3.9-5); Bilirubin,Direct 1.2 mg/dL (0-0.2)
[2021-11-28 05:42] LABS: BUN/Creatinine Ratio 28
[2021-11-28] MEDS: FUROSEMIDE 20 MG/2 ML INJ IV SCH ×2 (06:11→17:04)
--- NOTE | 2021-11-28 09:33 | Progress Note ---
Assessment and Plan Hyponatremia likely Hypervolemic, also since have history of Alcohol Abuse could have Beer Potomania Questionable Alcohol withdrawal Anasarca Pneumonia Acidosis Plan: most recent NA 112 mmol/l, correction since admission on 11/27 1600 total of 10 mmol/l. for now with excellent UOP on lasix, will hold off on using 3% saline due to overcorrection on admission, if no improvement in Na can restart 3% at 15 cc/h Goal correction is 4-6 mmol in 24 hours not exceeding 8 mmol in 24 hours Neuro checks every 4 hours ordered. This patient is at risk for Osmotic Demyelination Checking BMP every 4 hours Obtain urine sodium and urine osmo levels will d/c D5W Ordered for nurse to please call our on-call tile molder hand with sodium levels results Anasarca- Awaiting Echocardiogram Monitor I//O's Obtain daily weights Monitor sodium levels closely Subjective Date of service: 11/28/21 Principal diagnosis: hyponatremia Interval history: was given DDAVP and started on D5W last night to prevent over correction of sodium Objective - Vital Signs Vital signs: Vital Signs - 12hr 11/27/21 11/27/21 11/27/21 21:30 21:46 22:00 Temperature Pulse Rate 65 66 63 Pulse Rate [ Left Dorsalis Pedis] Pulse Rate [ Left Radial] Pulse Rate [ Right Dorsalis Pedis] Pulse Rate [ Right Radial] Respiratory 15 16 17 Rate Blood Pressure 104/65 104/65 101/61 O2 Sat by Pulse 100 99 99 Oximetry 11/27/21 11/27/21 11/27/21 22:16 22:30 22:46 Temperature Pulse Rate 63 64 62 Pulse Rate [ Left Dorsalis Pedis] Pulse Rate [ Left Radial] Pulse Rate [ Right Dorsalis Pedis] Pulse Rate [ Right Radial] Respiratory 16 16 14 Rate Blood Pressure 101/61 101/61 101/61 O2 Sat by Pulse 100 100 100 Oximetry 11/27/21 11/27/21 11/27/21 23:00 23:06 23:16 Temperature Pulse Rate 63 67 65 Pulse Rate [ Left Dorsalis Pedis] Pulse Rate [ Left Radial] Pulse Rate [ Right Dorsalis Pedis] Pulse Rate [ Right Radial] Respiratory 14 19 15 Rate Blood Pressure 104/61 104/61 104/61 O2 Sat by Pulse 98 99 100 Oximetry 11/27/21 11/27/21 11/28/21 23:30 23:46 00:00 Temperature 98.6 F Pulse Rate 68 63 62 Pulse Rate [ 68 Left Dorsalis Pedis] Pulse Rate [ 68 Left Radial] Pulse Rate [ 68 Right Dorsalis Pedis] Pulse Rate [ 68 Right Radial] Respiratory 20 17 16 Rate Blood Pressure 104/61 104/61 106/65 O2 Sat by Pulse 98 100 99 Oximetry 11/28/21 11/28/21 11/28/21 00:16 00:30 00:46 Temperature Pulse Rate 62 62 62 Pulse Rate [ Left Dorsalis Pedis] Pulse Rate [ Left Radial] Pulse Rate [ Right Dorsalis Pedis] Pulse Rate [ Right Radial] Respiratory 14 15 15 Rate Blood Pressure 104/61 104/61 104/61 O2 Sat by Pulse 100 100 100 Oximetry 11/28/21 11/28/21 11/28/21 01:00 01:16 01:30 Temperature Pulse Rate 67 67 67 Pulse Rate [ Left Dorsalis Pedis] Pulse Rate [ Left Radial] Pulse Rate [ Right Dorsalis Pedis] Pulse Rate [ Right Radial] Respiratory 21 21 18 Rate Blood Pressure 110/69 110/69 110/69 O2 Sat by Pulse 98 99 100 Oximetry 11/28/21 11/28/21 11/28/21 01:46 02:00 02:16 Temperature Pulse Rate 71 67 68 Pulse Rate [ Left Dorsalis Pedis] Pulse Rate [ Left Radial] Pulse Rate [ Right Dorsalis Pedis] Pulse Rate [ Right Radial] Respiratory 25 H 18 18 Rate Blood Pressure 110/69 103/65 103/65 O2 Sat by Pulse 100 98 100 Oximetry 11/28/21 11/28/21 11/28/21 02:30 02:46 03:00 Temperature Pulse Rate 66 67 66 Pulse Rate [ Left Dorsalis Pedis] Pulse Rate [ Left Radial] Pulse Rate [ Right Dorsalis Pedis] Pulse Rate [ Right Radial] Respiratory 16 19 15 Rate Blood Pressure 103/65 103/65 97/65 O2 Sat by Pulse 100 100 99 Oximetry 11/28/21 11/28/21 11/28/21 03:16 03:30 03:46 Temperature Pulse Rate 67 64 63 Pulse Rate [ Left Dorsalis Pedis] Pulse Rate [ Left Radial] Pulse Rate [ Right Dorsalis Pedis] Pulse Rate [ Right Radial] Respiratory 18 20 16 Rate Blood Pressure 97/65 97/65 97/65 O2 Sat by Pulse 100 99 99 Oximetry 11/28/21 11/28/21 11/28/21 04:00 04:16 04:30 Temperature 97.6 F Pulse Rate 63 63 62 Pulse Rate [ 63 Left Dorsalis Pedis] Pulse Rate [ 63 Left Radial] Pulse Rate [ 63 Right Dorsalis Pedis] Pulse Rate [ 63 Right Radial] Respiratory 17 17 15 Rate Blood Pressure 106/64 106/64 106/64 O2 Sat by Pulse 98 100 99 Oximetry 11/28/21 11/28/21 11/28/21 04:46 05:00 05:16 Temperature Pulse Rate 61 63 61 Pulse Rate [ Left Dorsalis Pedis] Pulse Rate [ Left Radial] Pulse Rate [ Right Dorsalis Pedis] Pulse Rate [ Right Radial] Respiratory 15 21 17 Rate Blood Pressure 106/64 102/67 102/67 O2 Sat by Pulse 100 98 100 Oximetry 11/28/21 11/28/21 11/28/21 05:30 05:46 06:00 Temperature Pulse Rate 63 61 61 Pulse Rate [ Left Dorsalis Pedis] Pulse Rate [ Left Radial] Pulse Rate [ Right Dorsalis Pedis] Pulse Rate [ Right Radial] Respiratory 20 15 15 Rate Blood Pressure 106/64 106/64 104/66 O2 Sat by Pulse 100 100 100 Oximetry 11/28/21 11/28/21 11/28/21 06:16 06:30 06:46 Temperature Pulse Rate 60 62 61 Pulse Rate [ Left Dorsalis Pedis] Pulse Rate [ Left Radial] Pulse Rate [ Right Dorsalis Pedis] Pulse Rate [ Right Radial] Respiratory 15 17 17 Rate Blood Pressure 104/66 104/66 104/66 O2 Sat by Pulse 100 99 100 Oximetry 11/28/21 11/28/21 11/28/21 07:00 07:16 07:30 Temperature Pulse Rate 61 63 63 Pulse Rate [ Left Dorsalis Pedis] Pulse Rate [ Left Radial] Pulse Rate [ Right Dorsalis Pedis] Pulse Rate [ Right Radial] Respiratory 16 21 18 Rate Blood Pressure 106/69 106/69 106/69 O2 Sat by Pulse 99 100 99 Oximetry 11/28/21 08:12 Temperature Pulse Rate Pulse Rate [ Left Dorsalis Pedis] Pulse Rate [ Left Radial] Pulse Rate [ Right Dorsalis Pedis] Pulse Rate [ Right Radial] Respiratory Rate Blood Pressure O2 Sat by Pulse 99 Oximetry - General Appearance General appearance: moderate distress EENT: ATNC Neck: JVD Respiratory: Present: Decreased Breath Sounds Cardiology: tachycardia Gastrointestinal: normal Integumentary: no rash Neurologic: confused Musculoskeletal: other (anasarca) - Lab 11/28/21 05:04 11/28/21 05:04 Most recent lab results ABG pH 7.393 pH Units (7.350-7.450) 11/26/21 18:31 ABG pCO2 19.1 mm Hg 11/26/21 18:31 ABG pO2 110.8 mm Hg (80.0-90.0) H 11/26/21 18:31 ABG HCO3 11.4 mmol/L (20.0-26.0) L 11/26/21 18:31 ABG O2 Saturation 98.1 % (95.0-99.0) 11/26/21 18:31 Calcium 7.7 mg/dL (8.4-10.2) L 11/28/21 05:04 Phosphorus 3.20 mg/dL (2.5-4.5) 11/28/21 05:04 Magnesium 1.90 mg/dL (1.7-2.3) 11/28/21 05:04 Urine Sodium 10 mmol/L 11/27/21 11:00 Medications & Allergies - Medications Allergies/Adverse Reactions: Allergies No Known Allergies Allergy (Verified 11/26/21 18:35) Active Medications: Generic Name Dose Route Start Last Admin Trade Name Freq PRN Reason Stop Dose Admin Acetaminophen 650 mg 11/26/21 21:59 Acetaminophen 325 Mg Tab PO Q4H PRN Pain MILD(1-3)/Fever >100.5/OAKES Albuterol 2.5 mg 11/26/21 21:59 Albuterol 2.5 Mg/3 Ml Nebu IH Q3HRT PRN Shortness Of Breath Azithromycin 500 mg 11/27/21 10:00 11/27/21 19:07 Azithromycin 250 Mg Tab PO Not Given QDAY INDERJIT Protocol Famotidine 20 mg 11/27/21 11:00 11/27/21 21:38 Famotidine 20 Mg Tab FEEDTUBE 20 mg BID INDERJIT Administration Folic Acid 1 mg 11/27/21 11:00 11/27/21 19:07 Folic Acid 1 Mg Tab FEEDTUBE Not Given DAILY INDERJIT Furosemide 20 mg 11/27/21 18:00 11/28/21 06:11 Furosemide 20 Mg/2 Ml Inj IV Not Given 0600,1800 [facility] Heparin Sodium (Porcine) 5,000 unit 11/27/21 22:00 11/27/21 21:38 Heparin 5,000 Unit/1 Ml Vial SUB-Q 5,000 unit Q12HR INDERJIT Administration Ceftriaxone Sodium 2 gm in 100 mls @ 200 mls/hr 11/27/21 10:00 11/27/21 11:00 Rocephin/Ns 2 Gm/100 Ml IV 200 mls/hr Q24HR INDERJIT Administration Protocol Dexmedetomidine HCl 400 mcg/ 100 mls @ 5.216 mls/hr 11/27/21 05:00 11/27/21 19:20 Sodium Chloride IV 0.3 mcg/kg/hr TITRATE INDERJIT 7.824 mls/hr Administration Protocol 0.2 MCG/KG/HR Lorazepam 2 mg 11/26/21 22:45 11/27/21 03:06 Lorazepam 2 Mg/Ml Vial IV 2 mg Q4H PRN Administration Alcohol Withdrawal Morphine Sulfate 2 mg 11/26/21 21:59 Morphine 2 Mg/1 Ml Inj IV Q4H PRN Pain, Moderate (4-6) Morphine Sulfate 4 mg 11/26/21 21:59 Morphine 4 Mg/1 Ml Inj IV Q4H PRN Pain , Severe (7-10) Ondansetron HCl 4 mg 11/26/21 21:59 Ondansetron 4 Mg/2 Ml Inj IV Q8H PRN Nausea And Vomiting Sodium Chloride 10 ml 11/26/21 22:00 11/27/21 21:38 Sodium Chloride 0.9% 10 Ml Flush Syringe IV 10 ml BID INDERJIT Administration Sodium Chloride 10 ml 11/26/21 21:59 Sodium Chloride 0.9% 10 Ml Flush Syringe IV PRN PRN LINE FLUSH Thiamine HCl 100 mg 11/27/21 11:00 11/27/21 19:09 Thiamine 100 Mg Tab FEEDTUBE Not Given QDAY [facility]
[2021-11-28 10:51] LABS: Blood Urea Nitrogen 15 mg/dL (9-20); Calcium 7.6 mg/dL (8.4-10.2); Hemolysis Index 5
[2021-11-28] MEDS: FOLIC ACID 1 MG TAB FEEDTUBE SCH (10:51)
[2021-11-28] MEDS: FAMOTIDINE 20 MG TAB FEEDTUBE SCH ×2 (10:51→22:17)
[2021-11-28] MEDS: HEPARIN 5,000 UNIT/1 ML VIAL SUB-Q SCH ×2 (10:51→22:17)
[2021-11-28] MEDS: THIAMINE 100 MG TAB FEEDTUBE SCH (10:51)
[2021-11-28] MEDS: MULTIVITAMIN / MINERAL ORAL LIQUID 15 ML FEEDTUBE SCH (10:51)
[2021-11-28 10:53] LABS: BUN/Creatinine Ratio 25
--- NOTE | 2021-11-28 13:16 | Progress Note ---
Assessment and Plan 36 y/o male with altered mental status secondary to hypervolemic hyponatremia 1. EF was normal EF but diastolic dysfunction 2. ABD ultrasound showed fatty liver 3. No large amount of fluid appreciated on abdominal bedside ultrasound 4. Follow up renal recs 5. Continue ICU care, wean precedex CCT 31 minutes Subjective Date of service: 11/28/21 Principal diagnosis: hyponatremia Interval history: More awake today. Na improving. Lasix not given as the oncall drafting clerk requested not to, but it was ordered earlier that day by the partner who was rounding. patient actually got D5 with DDAVPx2. Still on precedex Objective - Constitutional Vitals: Vital Signs - 12hr 11/28/21 11/28/21 11/28/21 01:16 01:30 01:46 Temperature Pulse Rate 67 67 71 Pulse Rate [ Left Dorsalis Pedis] Pulse Rate [ Left Radial] Pulse Rate [ Right Dorsalis Pedis] Pulse Rate [ Right Radial] Respiratory 21 18 25 H Rate Blood Pressure 110/69 110/69 110/69 O2 Sat by Pulse 99 100 100 Oximetry 11/28/21 11/28/21 11/28/21 02:00 02:16 02:30 Temperature Pulse Rate 67 68 66 Pulse Rate [ Left Dorsalis Pedis] Pulse Rate [ Left Radial] Pulse Rate [ Right Dorsalis Pedis] Pulse Rate [ Right Radial] Respiratory 18 18 16 Rate Blood Pressure 103/65 103/65 103/65 O2 Sat by Pulse 98 100 100 Oximetry 11/28/21 11/28/21 11/28/21 02:46 03:00 03:16 Temperature Pulse Rate 67 66 67 Pulse Rate [ Left Dorsalis Pedis] Pulse Rate [ Left Radial] Pulse Rate [ Right Dorsalis Pedis] Pulse Rate [ Right Radial] Respiratory 19 15 18 Rate Blood Pressure 103/65 97/65 97/65 O2 Sat by Pulse 100 99 100 Oximetry 11/28/21 11/28/21 11/28/21 03:30 03:46 04:00 Temperature 97.6 F Pulse Rate 64 63 63 Pulse Rate [ 63 Left Dorsalis Pedis] Pulse Rate [ 63 Left Radial] Pulse Rate [ 63 Right Dorsalis Pedis] Pulse Rate [ 63 Right Radial] Respiratory 20 16 17 Rate Blood Pressure 97/65 97/65 106/64 O2 Sat by Pulse 99 99 98 Oximetry 11/28/21 11/28/2122 04:16 04:30 04:46 Temperature Pulse Rate 63 62 61 Pulse Rate [ Left Dorsalis Pedis] Pulse Rate [ Left Radial] Pulse Rate [ Right Dorsalis Pedis] Pulse Rate [ Right Radial] Respiratory 17 15 15 Rate Blood Pressure 106/64 106/64 106/64 O2 Sat by Pulse 100 99 100 Oximetry 11/28/21 11/28/21 11/28/21 05:00 05:16 05:30 Temperature Pulse Rate 63 61 63 Pulse Rate [ Left Dorsalis Pedis] Pulse Rate [ Left Radial] Pulse Rate [ Right Dorsalis Pedis] Pulse Rate [ Right Radial] Respiratory 21 17 20 Rate Blood Pressure 102/67 102/67 106/64 O2 Sat by Pulse 98 100 100 Oximetry 11/28/21 11/28/21 11/28/21 05:46 06:00 06:16 Temperature Pulse Rate 61 61 60 Pulse Rate [ Left Dorsalis Pedis] Pulse Rate [ Left Radial] Pulse Rate [ Right Dorsalis Pedis] Pulse Rate [ Right Radial] Respiratory 15 15 15 Rate Blood Pressure 106/64 104/66 104/66 O2 Sat by Pulse 100 100 100 Oximetry 11/28/21 11/28/21 11/28/21 06:30 06:46 07:00 Temperature Pulse Rate 62 61 61 Pulse Rate [ Left Dorsalis Pedis] Pulse Rate [ Left Radial] Pulse Rate [ Right Dorsalis Pedis] Pulse Rate [ Right Radial] Respiratory 17 17 16 Rate Blood Pressure 104/66 104/66 106/69 O2 Sat by Pulse 99 100 99 Oximetry 11/28/21 11/28/21 11/28/21 07:16 07:30 07:46 Temperature Pulse Rate 63 63 62 Pulse Rate [ Left Dorsalis Pedis] Pulse Rate [ Left Radial] Pulse Rate [ Right Dorsalis Pedis] Pulse Rate [ Right Radial] Respiratory 21 18 19 Rate Blood Pressure 106/69 106/69 106/69 O2 Sat by Pulse 100 99 100 Oximetry 11/28/21 11/28/21 11/28/21 08:00 08:12 08:16 Temperature Pulse Rate 61 62 Pulse Rate [ Left Dorsalis Pedis] Pulse Rate [ Left Radial] Pulse Rate [ Right Dorsalis Pedis] Pulse Rate [ Right Radial] Respiratory 15 19 Rate Blood Pressure 105/61 105/61 O2 Sat by Pulse 98 99 99 Oximetry 11/28/21 11/28/21 11/28/21 08:30 08:46 09:00 Temperature Pulse Rate 63 62 63 Pulse Rate [ Left Dorsalis Pedis] Pulse Rate [ Left Radial] Pulse Rate [ Right Dorsalis Pedis] Pulse Rate [ Right Radial] Respiratory 19 15 18 Rate Blood Pressure 105/61 105/61 114/59 O2 Sat by Pulse 98 98 97 Oximetry 11/28/21 11/28/21 11/28/21 09:16 09:30 09:46 Temperature Pulse Rate 63 64 63 Pulse Rate [ Left Dorsalis Pedis] Pulse Rate [ Left Radial] Pulse Rate [ Right Dorsalis Pedis] Pulse Rate [ Right Radial] Respiratory 17 17 16 Rate Blood Pressure 114/59 114/59 114/59 O2 Sat by Pulse 98 99 98 Oximetry 11/28/21 11/28/21 11/28/21 10:00 10:16 10:30 Temperature Pulse Rate 62 64 62 Pulse Rate [ Left Dorsalis Pedis] Pulse Rate [ Left Radial] Pulse Rate [ Right Dorsalis Pedis] Pulse Rate [ Right Radial] Respiratory 18 17 17 Rate Blood Pressure 113/69 113/69 113/69 O2 Sat by Pulse 97 99 97 Oximetry 11/28/21 11/28/21 11/28/21 10:46 11:00 11:16 Temperature Pulse Rate 61 63 62 Pulse Rate [ Left Dorsalis Pedis] Pulse Rate [ Left Radial] Pulse Rate [ Right Dorsalis Pedis] Pulse Rate [ Right Radial] Respiratory 16 19 17 Rate Blood Pressure 113/69 113/72 113/72 O2 Sat by Pulse 98 99 Oximetry 11/28/21 11/28/21 11/28/21 11:30 11:46 12:00 Temperature Pulse Rate 62 60 64 Pulse Rate [ Left Dorsalis Pedis] Pulse Rate [ Left Radial] Pulse Rate [ Right Dorsalis Pedis] Pulse Rate [ Right Radial] Respiratory 18 17 19 Rate Blood Pressure 113/72 113/72 116/69 O2 Sat by Pulse 99 99 99 Oximetry 11/28/21 12:16 Temperature Pulse Rate 62 Pulse Rate [ Left Dorsalis Pedis] Pulse Rate [ Left Radial] Pulse Rate [ Right Dorsalis Pedis] Pulse Rate [ Right Radial] Respiratory 17 Rate Blood Pressure 116/69 O2 Sat by Pulse 98 Oximetry - Labs CBC & Chem 7: 11/28/21 05:04 11/28/21 10:13 Labs: Abnormal lab results 11/27/21 11/27/21 11/27/21 Range/Units 13:47 15:54 22:54 RBC (3.65-5.03) M/mm3 Hct (35.5-45.6) % MCV (84-94) fl MCH (28-32) pg MCHC (32-34) % Sodium 114 L* 116 L* (137-145) mmol/L Chloride 86.0 L 84.2 L (98-107) mmol/L Carbon Dioxide 19 L 21 L (22-30) mmol/L Creatinine 0.6 L 0.5 L (0.8-1.3) mg/dL Glucose 107 H (75-100) mg/dL POC Glucose 113 H (70-105) mg/dL Calcium 7.7 L 7.8 L (8.4-10.2) mg/dL Total Bilirubin (0.1-1.2) mg/dL Direct Bilirubin (0-0.2) mg/dL AST (5-40) units/L Alkaline Phosphatase (35-129) units/L Total Protein (6.3-8.2) g/dL Albumin (3.9-5) g/dL 11/28/21 11/28/21 11/28/21 Range/Units 01:58 05:04 05:04 RBC (3.65-5.03) M/mm3 Hct (35.5-45.6) % MCV (84-94) fl MCH (28-32) pg MCHC (32-34) % Sodium 114 L* 112 L* (137-145) mmol/L Chloride 82.0 L 80.4 L (98-107) mmol/L Carbon Dioxide 20 L 19 L (22-30) mmol/L Creatinine 0.5 L 0.5 L (0.8-1.3) mg/dL Glucose 114 H (75-100) mg/dL POC Glucose (70-105) mg/dL Calcium 7.7 L 7.7 L (8.4-10.2) mg/dL Total Bilirubin 2.20 H (0.1-1.2) mg/dL Direct Bilirubin 1.2 H (0-0.2) mg/dL AST 166 H (5-40) units/L Alkaline Phosphatase 138 H (35-129) units/L Total Protein 5.6 L D (6.3-8.2) g/dL Albumin 2.5 L (3.9-5) g/dL 11/28/21 11/28/21 Range/Units 05:04 10:13 RBC 3.44 L (3.65-5.03) M/mm3 Hct 34.1 L D (35.5-45.6) % MCV 99 H (84-94) fl MCH 34 H (28-32) pg MCHC 35 H (32-34) % Sodium 115 L* (137-145) mmol/L Chloride 86.1 L (98-107) mmol/L Carbon Dioxide 20 L (22-30) mmol/L Creatinine 0.6 L (0.8-1.3) mg/dL Glucose (75-100) mg/dL POC Glucose (70-105) mg/dL Calcium 7.6 L (8.4-10.2) mg/dL Total Bilirubin (0.1-1.2) mg/dL Direct Bilirubin (0-0.2) mg/dL AST (5-40) units/L Alkaline Phosphatase (35-129) units/L Total Protein (6.3-8.2) g/dL Albumin (3.9-5) g/dL Medications & Allergies - Medications Allergies/Adverse Reactions: Allergies No Known Allergies Allergy (Verified 11/26/21 18:35) Active Medications: Generic Name Dose Route Start Last Admin Trade Name Freq PRN Reason Stop Dose Admin Acetaminophen 650 mg 11/26/21 21:59 Acetaminophen 325 Mg Tab PO Q4H PRN Pain MILD(1-3)/Fever >100.5/OAKES Famotidine 20 mg 11/27/21 11:00 11/28/21 10:51 Famotidine 20 Mg Tab FEEDTUBE 20 mg BID INDERJIT Administration Folic Acid 1 mg 11/27/21 11:00 11/28/21 10:51 Folic Acid 1 Mg Tab FEEDTUBE 1 mg DAILY INDERJIT Administration Furosemide 20 mg 11/27/21 18:00 11/28/21 06:11 Furosemide 20 Mg/2 Ml Inj IV Not Given 0600,1800 INDERJIT Heparin Sodium (Porcine) 5,000 unit 11/27/21 22:00 11/28/21 10:51 Heparin 5,000 Unit/1 Ml Vial SUB-Q 5,000 unit Q12HR INDERJIT Administration Dexmedetomidine HCl 400 mcg/ 100 mls @ 5.216 mls/hr 11/27/21 05:00 11/27/21 19:20 Sodium Chloride IV 0.3 mcg/kg/hr TITRATE INDERJIT 7.824 mls/hr Administration Protocol 0.2 MCG/KG/HR Lorazepam 2 mg 11/26/21 22:45 11/27/21 03:06 Lorazepam 2 Mg/Ml Vial IV 2 mg Q4H PRN Administration Alcohol Withdrawal Morphine Sulfate 2 mg 11/26/21 21:59 Morphine 2 Mg/1 Ml Inj IV Q4H PRN Pain, Moderate (4-6) Morphine Sulfate 4 mg 11/26/21 21:59 Morphine 4 Mg/1 Ml Inj IV Q4H PRN Pain , Severe (7-10) Ondansetron HCl 4 mg 11/26/21 21:59 Ondansetron 4 Mg/2 Ml Inj IV Q8H PRN Nausea And Vomiting Sodium Chloride 10 ml 11/26/21 22:00 11/28/21 10:57 Sodium Chloride 0.9% 10 Ml Flush Syringe IV 10 ml BID INDERJIT Administration Sodium Chloride 10 ml 11/26/21 21:59 Sodium Chloride 0.9% 10 Ml Flush Syringe IV PRN PRN LINE FLUSH Thiamine HCl 100 mg 11/27/21 11:00 11/28/21 10:51 Thiamine 100 Mg Tab FEEDTUBE 100 mg QDAY INDERJIT Administration
[2021-11-28 15:59] LABS: Hepatitis B Surface Antigen Nonreactive (Negative); Hepatitis C Virus Antibody Nonreactive (NonReactive)
[2021-11-28 16:44] LABS: Blood Urea Nitrogen 14 mg/dL (9-20); Calcium 7.7 mg/dL (8.4-10.2); Hemolysis Index 2
[2021-11-28 16:45] LABS: BUN/Creatinine Ratio 23
--- NOTE | 2021-11-28 18:11 | Progress Note ---
<JORGEIVONNEIna - Last Filed: 11/28/21 18:07> Assessment and Plan Assessment and plan: This is a 36-year-old male with EtOH abuse admitted with severe hyponatremia, severe hypochloremia, lactic acidosis, leukocytosis and COVID-19 PUI Neuro: Acute metabolic encephalopathy, h/o EtOH abuse -[facility] protocol -Precedex drip -Wean Precedex drip as tolerated -Bilateral wrist restraints in place for safety -CT head shows no acute abnormalities -Avoid delirium -Reorientation as needed -Maintain sleep-wake cycle -As needed analgesia -Admit serum alcohol 0.04 -Thiamine, folic acid -Neurochecks every 2 Cardiac: NAD -Cardiology consulted, appreciate recommendations -Blood pressure monitoring per protocol -Echocardiogram shows LVEF 50 to 55%, impaired LV relaxation, RVSP 33 mmHg, moderate TR -Admit proBNP 1043 Respiratory: Acute hypoxic respiratory failure -CCM consulted, appreciate recommendations -Currently on NC -Wean supplemental oxygen as tolerated -Pulmonary hygiene -SPO2 monitoring GI: Obesity, transaminitis -24 hours -4650 mL -PPI -NTR consulted for tube feedings -Abdominal ultrasound showed hepatic steatosis without abdominal ascites -Trend LFTs : Severe hyponatremia, hypochloremia, urinary retention -Nephrology consulted, appreciate recommendations -Continue every 4 hr BMPs -Continue diuresis per nephrology -S/p DDAVP x2, 1500 mL D5W overnight 11/27-11/28 -Strict intake and output -Renally dose medications -Avoid nephrotoxic medications -Daily weights -Urine osmolality 404, urine sodium 10, serum osmo 243 -Lasix twice daily -S/p hypertonic saline -BMP every 4hr ID: COVID-19 PUI, lactic acidosis, r/o SBP -Infectious disease consulted, appreciate recommendation -Antibiotic therapy with azithromycin and Rocephin -Discontinue antibiotics -COVID-19 PCR negative -Diagnostic paracentesis planned for tomorrow -f/u blood culture -Monitor WBC and temperature curve Endo: NAD -Avoid hypoglycemia -SSI -Accu-Cheks q. 6hr Heme: NAD -Trend CBC -Transfuse hemoglobin less than 7 -Monitor for signs of bleeding -heparin subq -SCDs to BLE while in bed The high probability of a clinically significant, sudden or life threatening deterioration of the [multi] system(s) required my full and direct attention, intervention and personal management. The aggregate critical care time was [60] minutes. This time is in addition to time spent performing reported procedures but includes the following: [x] Data Review and interpretation [x] Patient assessment and monitoring of vital signs [x] Documentation [x] Medication orders and management I Disposition Plan: icu Total Time Spent with Patient (Minutes): 60 History Interval history: This is a 36 year old male with EtOH abuse who presented to the ED on 11/26 with complaints of diaphoresis, generalized abdominal swelling, leg edema and shortness of breath with worsening symptoms over the past 5 days via EMS. Last reported alcohol intake was 11/25 per ED documentation. In the ED patient was placed on supplemental oxygen and repositioned with improvement in diaphoresis and respiratory distress. Workup in the ED showed groundglass opacities suggestive of edema versus infiltrate on CXR, severe hyponatermia, severe hypochloremia, lactic acidosis, leukocytosis and nephrology was consulted. CT head showed no acute abnormalityand both CTA chest and CT abdomen/pelvis showed diffuse groundglass airspace opacities, hepatic cirrhosis and generalized anas arca. He was given hypertonic saline at 25mL/hr and BMP ordered every 4 hours. 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 Hospital course to date: 11/27: Obtain abd US, echo, continue BMP q 4 hoyrs, DHT placed. Continue neuro checks q2, COVID PCR (-), obtain urine sodium and osmo, possible diagnostic paracentisis tomorrow. 11/28:Improvement noted to sodium, yesterday evening and overnight patient received 1500 mL D5W, DDAVP x2. Lasix was withheld. We will continue to track BMPs every 4 hours. Hospitalist Physical - Constitutional Vitals: Temp Pulse Resp BP Pulse Ox 97.6 F 74 22 114/64 95 11/28/21 04:00 11/28/21 17:00 11/28/21 17:00 11/28/21 17:00 11/28/21 17:00 - EENT Eyes: Present: PERRL, EOM intact ENT: hearing intact, clear oral mucosa, dentition normal - Neck Neck: Present: normal ROM - Respiratory Respiratory effort: normal Respiratory: bilateral: diminished - Cardiovascular Rhythm: regular Heart Sounds: Present: S1 & S2. Absent: systolic murmur - Extremities Extremities: no ischemia, pulses intact, pulses symmetrical, No edema, normal temperature, normal color, Full ROM Peripheral Pulses: within normal limits - Abdominal General gastrointestinal: soft, non-tender, non-distended, normal bowel sounds - Integumentary Integumentary: Present: clear, warm, dry - Psychiatric Psychiatric: cooperative - Neurologic Neurologic: CNII-XII intact, no focal deficits, moves all extremities - Allied Health Allied health notes reviewed: nursing, RT, social work Results - Labs CBC & Chem 7: 11/28/21 05:04 11/28/21 16:08 Labs: Laboratory Last Values WBC 6.2 K/mm3 (4.5-11.0) 11/28/21 05:04 RBC 3.44 M/mm3 (3.65-5.03) L 11/28/21 05:04 Hgb 11.8 gm/dl (11.8-15.2) 11/28/21 05:04 Hct 34.1 % (35.5-45.6) L D 11/28/21 05:04 MCV 99 fl (84-94) H 11/28/21 05:04 MCH 34 pg (28-32) H 11/28/21 05:04 MCHC 35 % (32-34) H 11/28/21 05:04 RDW 14.2 % (13.2-15.2) 11/28/21 05:04 Plt Count 145 K/mm3 (140-440) 11/28/21 05:04 Lymph % (Auto) 12.1 % (13.4-35.0) L 11/27/21 02:03 [place] % (Auto) 12.8 % (0.0-7.3) H 11/27/21 02:03 Eos % (Auto) 0.2 % (0.0-4.3) 11/27/21 02:03 Baso % (Auto) 0.5 % (0.0-1.8) 11/27/21 02:03 Lymph # (Auto) 1.9 K/mm3 (1.2-5.4) 11/27/21 02:03 [place] # (Auto) 2.0 K/mm3 (0.0-0.8) H 11/27/21 02:03 Eos # (Auto) 0.0 K/mm3 (0.0-0.4) 11/27/21 02:03 Baso # (Auto) 0.1 K/mm3 (0.0-0.1) 11/27/21 02:03 Seg Neutrophils % 74.4 % (40.0-70.0) H 11/27/21 02:03 Seg Neutrophils # 11.5 K/mm3 (1.8-7.7) H 11/27/21 02:03 PT 16.2 Sec. (12.2-14.9) H 11/26/21 16:24 INR 1.16 (0.87-1.13) H 11/26/21 16:24 APTT 38.3 Sec. (24.2-36.6) H 11/26/21 16:24 ABG pH 7.393 pH Units (7.350-7.450) 11/26/21 18:31 ABG pCO2 19.1 mm Hg 11/26/21 18: ABG pO2 110.8 mm Hg (80.0-90.0) H 11/26/21 18:31 ABG HCO3 11.4 mmol/L (20.0-26.0) L 11/26/21 18:31 ABG O2 Saturation 98.1 % (95.0-99.0) 11/26/21 18:31 ABG O2 Content 20.6 (0.0-44) 11/26/21 18:31 ABG Base Excess -10.7 mmol/L (-2.0-3.0) L 11/26/21 18:31 ABG Hemoglobin 15.2 gm/dl (14.0-18.0) 11/26/21 18:31 ABG Carboxyhemoglobin 1.6 % (0.0-5.0) 11/26/21 18:31 ABG Methemoglobin 0.7 % (0.0-1.5) 11/26/21 18:31 Oxyhemoglobin 95.9 % (95.0-99.0) 11/26/21 18:31 FiO2 28 % 11/26/21 18:31 Sodium 116 mmol/L (137-145) L* 11/28/21 16:08 Potassium 4.1 mmol/L (3.6-5.0) 11/28/21 16:08 Chloride 85.7 mmol/L (98-107) L 11/28/21 16:08 Carbon Dioxide 22 mmol/L (22-30) 11/28/21 16:08 Anion Gap 12 mmol/L 11/28/21 16:08 BUN 14 mg/dL (9-20) 11/28/21 16:08 Creatinine 0.6 mg/dL (0.8-1.3) L 11/28/21 16:08 Estimated GFR > 60 ml/min 11/28/21 16:08 BUN/Creatinine Ratio 23 % 11/28/21 16:08 Glucose 76 mg/dL (75-100) 11/28/21 16:08 POC Glucose 90 mg/dL (70-105) 11/28/21 00:06 Ketones Quantitative Negative (Negative) 11/26/21 16:24 Osmolality 243 Mosm/kg 11/27/21 11:09 Lactic Acid 4.70 mmol/L (0.7-2.0) H* 11/26/21 21:02 Calcium 7.7 mg/dL (8.4-10.2) L 11/28/21 16:08 Phosphorus 3.20 mg/dL (2.5-4.5) 11/28/21 05:04 Magnesium 1.90 mg/dL (1.7-2.3) 11/28/21 05:04 Total Bilirubin 2.20 mg/dL (0.1-1.2) H 11/28/21 05:04 Direct Bilirubin 1.2 mg/dL (0-0.2) H 11/28/21 05:04 Indirect Bilirubin 1.0 mg/dL 11/28/21 05:04 AST 166 units/L (5-40) H 11/28/21 05:04 ALT 37 units/L (7-56) 11/28/21 05:04 Alkaline Phosphatase 138 units/L (35-129) H 11/28/21 05:04 Ammonia 59.0 umol/L (25-60) 11/26/21 18:51 NT-Pro-B Natriuret Pep 1043 pg/mL (0-450) H 11/26/21 16:24 Total Protein 5.6 g/dL (6.3-8.2) L D 11/28/21 05:04 Albumin 2.5 g/dL (3.9-5) L 11/28/21 05:04 Albumin/Globulin Ratio 0.8 % 11/28/21 05:04 Lipase 78 units/L (13-60) H 11/26/21 16:24 TSH 3.910 mlU/mL (0.270-4.200) 11/26/21 18:44 Free T4 1.46 ng/dL (0.76-1.46) 11/26/21 18:44 Urine Color Marquita (Yellow) 11/26/21 11:00 Urine Turbidity Clear (Clear) 11/26/21 11:00 Urine pH 6.0 (5.0-7.0) 11/26/21 11:00 Ur Specific [place] 1.021 (1.003-1.030) 11/26/21 11:00 Urine Protein <15 mg/dl mg/dL (Negative) 11/26/21 11:00 Urine Glucose (UA) Neg mg/dL (Negative) 11/26/21 11:00 Urine Ketones Tr mg/dL (Negative) 11/26/21 11:00 Urine Blood Neg (Negative) 11/26/21 11:00 Urine Nitrite Neg (Negative) 11/26/21 11:00 Urine Bilirubin Neg (Negative) 11/26/21 11:00 Urine Urobilinogen 4.0 mg/dL (<2.0) 11/26/21 11:00 Ur Leukocyte Esterase Neg (Negative) 11/26/21 11:00 Urine WBC (Auto) 1.0 /HPF (0.0-6.0) 11/26/21 11:00 Urine RBC (Auto) < 1.0 /HPF (0.0-6.0) 11/26/21 11:00 U Epithel Cells (Auto) < 1.0 /HPF (0-13.0) 11/26/21 11:00 Urine Osmolality 404 Mosm/kg 11/27/21 11:00 Urine Sodium 10 mmol/L 11/27/21 11:00 Plasma/Serum Alcohol 0.04 % (0-0.07) 11/26/21 18:44 Coronavirus (PCR) Negative (Negative) 11/27/21 11:00 Hepatitis A IgM Ab Nonreactive (NonReactive) 11/28/21 13:34 Hep Bs Antigen Nonreactive (Negative) 11/28/21 13:34 Hep B Core IgM Ab Non-reactive (NonReactive) 11/28/21 13:34 Hepatitis C Antibody Nonreactive (NonReactive) 11/28/21 13:34 Microbiology: Microbiology 11/26/21 21:02 Peripheral/Venous Blood Culture - Preliminary NO GROWTH AFTER 24 HOURS 11/26/21 21:02 Peripheral/Venous Blood Culture - Preliminary NO GROWTH AFTER 24 HOURS Reeves/IV: Voiding Method Indwelling Catheter Active Medications - Current Medications Current Medications: Generic Name Dose Route Start Last Admin Trade Name Freq PRN Reason Stop Dose Admin Acetaminophen 650 mg 11/26/21 21:59 Acetaminophen 325 Mg Tab PO Q4H PRN Pain MILD(1-3)/Fever >100.5/OAKES Famotidine 20 mg 11/27/21 11:00 11/28/21 10:51 Famotidine 20 Mg Tab FEEDTUBE 20 mg BID INDERJIT Administration Folic Acid 1 mg 11/27/21 11:00 11/28/21 10:51 Folic Acid 1 Mg Tab FEEDTUBE 1 mg DAILY INDERJIT Administration Furosemide 20 mg 11/27/21 18:00 11/28/21 17:04 Furosemide 20 Mg/2 Ml Inj IV 20 mg 0600,1800 INDERJIT Administration Heparin Sodium (Porcine) 5,000 unit 11/27/21 22:00 11/28/21 10:51 Heparin 5,000 Unit/1 Ml Vial SUB-Q 5,000 unit Q12HR INDERJIT Administration Dexmedetomidine HCl 400 mcg/ 100 mls @ 5.216 mls/hr 11/27/21 05:00 11/28/21 11:00 Sodium Chloride IV Infused TITRATE INDERJIT Titration Protocol 0.2 MCG/KG/HR Lorazepam 2 mg 11/26/21 22:45 11/27/21 03:06 Lorazepam 2 Mg/Ml Vial IV 2 mg Q4H PRN Administration Alcohol Withdrawal Morphine Sulfate 2 mg 11/26/21 21:59 Morphine 2 Mg/1 Ml Inj IV Q4H PRN Pain, Moderate (4-6) Morphine Sulfate 4 mg 11/26/21 21:59 Morphine 4 Mg/1 Ml Inj IV Q4H PRN Pain , Severe (7-10) Ondansetron HCl 4 mg 11/26/21 21:59 Ondansetron 4 Mg/2 Ml Inj IV Q8H PRN Nausea And Vomiting Sodium Chloride 10 ml 11/26/21 22:00 11/28/21 10:57 Sodium Chloride 0.9% 10 Ml Flush Syringe IV 10 ml BID INDERJIT Administration Sodium Chloride 10 ml 11/26/21 21:59 Sodium Chloride 0.9% 10 Ml Flush Syringe IV PRN PRN LINE FLUSH Thiamine HCl 100 mg 11/27/21 11:00 11/28/21 10:51 Thiamine 100 Mg Tab FEEDTUBE 100 mg QDAY INDERJIT Administration Nutrition/Malnutrition Assess - Dietary Evaluation Nutrition/Malnutrition Findings: Nutrition Notes Start: 11/27/21 18:57 Freq: Status: Active Protocol: Document 11/28/21 17:12 LYN (Rec: 11/28/21 17:24 LYN [id number]) Nutrition Notes Need for Assessment generated from: [email or web address],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 Current Diet NPO (since 11/27 11:01). 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 0.326 Kg body weight loss in 1 day reported. Weight Status Morbidly Obese Subjective/Other Information RD consult for risk of malnutrition assessment. Pt continues on NPO. Pt is on Room Air, O2 saturation @ 99%, according to Vital Signs. Pt shows no signs of concern for risk of malnutrition at the time, according to Physical Assessment History notes. Percent of energy/protein needs met: Pt currently on NPO. Is patient on ventilator? No Is Patient Ambulatory and/or Out of Bed Yes REE-([facility]-ambulatory/OOB) [ 2451.800 NUTR.MSJOOB] Kcal/Kg value to use for calculation 14 Approximate Energy Requirements Using 1456 kcal/Kg Calculation Used for Recommendations Kcal/kg Additional Notes Protein: 0.8-1 g/Kg AdjBW; 66- 82 g/day. Fluids: 1 ml/Kcal, or as per MD. Nutrition Intervention Follow-Up By: 11/30/21 Additional Comments When pertinent, start monitoring food tolerance, %PO intake of meals, and BM. <SIVAN KINSEY - Last Filed: 12/03/21 10:25> Assessment and Plan Assessment and plan: I saw and evaluated the patient. Discussed with the nurse practitioner and agree with their findings and plan as documented in this note. Hospitalist Physical - Constitutional Vitals: Temp Pulse Resp BP Pulse Ox 98.6 F 71 18 120/70 98 12/03/21 05:26 12/03/21 05:26 12/03/21 05:26 12/03/21 05:26 12/03/21 05:26 Results - Labs CBC & Chem 7: 11/28/21 05:04 12/03/21 05:38 Labs: Laboratory Last Values WBC 6.2 K/mm3 (4.5-11.0) 11/28/21 05:04 RBC 3.44 M/mm3 (3.65-5.03) L 11/28/21 05:04 Hgb 11.8 gm/dl (11.8-15.2) 11/28/21 05:04 Hct 34.1 % (35.5-45.6) L D 11/28/21 05:04 MCV 99 fl (84-94) H 11/28/21 05:04 MCH 34 pg (28-32) H 11/28/21 05:04 MCHC 35 % (32-34) H 11/28/21 05:04 RDW 14.2 % (13.2-15.2) 11/28/21 05:04 Plt Count 145 K/mm3 (140-440) 11/28/21 05:04 Lymph % (Auto) 12.1 % (13.4-35.0) L 11/27/21 02:03 [place] % (Auto) 12.8 % (0.0-7.3) H 11/27/21 02:03 Eos % (Auto) 0.2 % (0.0-4.3) 11/27/21 02:03 Baso % (Auto) 0.5 % (0.0-1.8) 11/27/21 02:03 Lymph # (Auto) 1.9 K/mm3 (1.2-5.4) 11/27/21 02:03 [place] # (Auto) 2.0 K/mm3 (0.0-0.8) H 11/27/21 02:03 Eos # (Auto) 0.0 K/mm3 (0.0-0.4) 11/27/21 02:03 Baso # (Auto) 0.1 K/mm3 (0.0-0.1) 11/27/21 02:03 Seg Neutrophils % 74.4 % (40.0-70.0) H 11/27/21 02:03 Seg Neutrophils # 11.5 K/mm3 (1.8-7.7) H 11/27/21 02:03 PT 16.2 Sec. (12.2-14.9) H 11/26/21 16:24 INR 1.16 (0.87-1.13) H 11/26/21 16:24 APTT 38.3 Sec. (24.2-36.6) H 11/26/21 16:24 ABG pH 7.393 pH Units (7.350-7.450) 11/26/21 18:31 ABG pCO2 19.1 mm Hg 11/26/21 18:31 ABG pO2 110.8 mm Hg (80.0-90.0) H 11/26/21 18:31 ABG HCO3 11.4 mmol/L (20.0-26.0) L 11/26/21 18:31 ABG O2 Saturation 98.1 % (95.0-99.0) 11/26/21 18:31 ABG O2 Content 20.6 (0.0-44) 11/26/21 18:31 ABG Base Excess -10.7 mmol/L (-2.0-3.0) L 11/26/21 18:31 ABG Hemoglobin 15.2 gm/dl (14.0-18.0) 11/26/21 18:31 ABG Carboxyhemoglobin 1.6 % (0.0-5.0) 11/26/21 18:31 ABG Methemoglobin 0.7 % (0.0-1.5) 11/26/21 18:31 Oxyhemoglobin 95.9 % (95.0-99.0) 11/26/21 18:31 FiO2 28 % 11/26/21 18:31 Sodium 137 mmol/L (137-145) 12/03/21 05:38 Potassium 3.4 mmol/L (3.6-5.0) L 12/03/21 05:38 Chloride 101.8 mmol/L (98-107) 12/03/21 05:38 Carbon Dioxide 25 mmol/L (22-30) 12/03/21 05:38 Anion Gap 14 mmol/L 12/03/21 05:38 BUN 8 mg/dL (9-20) L 12/03/21 05:38 Creatinine 0.4 mg/dL (0.8-1.3) L 12/03/21 05:38 Estimated GFR > 60 ml/min 12/03/21 05:38 BUN/Creatinine Ratio 20 % 12/03/21 05:38 Glucose 85 mg/dL (75-100) 12/03/21 05:38 POC Glucose 111 mg/dL (70-105) H 11/29/21 16:10 Ketones Quantitative Negative (Negative) 11/26/21 16:24 Osmolality 243 Mosm/kg 11/27/21 11:09 Lactic Acid 4.70 mmol/L (0.7-2.0) H* 11/26/21 21:02 Calcium 8.4 mg/dL (8.4-10.2) 12/03/21 05:38 Phosphorus 3.20 mg/dL (2.5-4.5) 11/28/21 05:04 Magnesium 1.90 mg/dL (1.7-2.3) 11/28/21 05:04 Total Bilirubin 1.80 mg/dL (0.1-1.2) H 11/30/21 05:02 Direct Bilirubin 1.5 mg/dL (0-0.2) H 11/29/21 02:06 Indirect Bilirubin 1.0 mg/dL 11/29/21 02:06 AST 153 units/L (5-40) H 11/30/21 05:02 ALT 49 units/L (7-56) 11/30/21 05:02 Alkaline Phosphatase 201 units/L (35-129) H 11/30/21 05:02 Ammonia 59.0 umol/L (25-60) 11/26/21 18:51 NT-Pro-B Natriuret Pep 1043 pg/mL (0-450) H 11/26/21 16:24 Total Protein 6.7 g/dL (6.3-8.2) 11/30/21 05:02 Albumin 2.8 g/dL (3.9-5) L 11/30/21 05:02 Albumin/Globulin Ratio 0.7 % 11/30/21 05:02 Lipase 78 units/L (13-60) H 11/26/21 16:24 TSH 3.910 mlU/mL (0.270-4.200) 11/26/21 18:44 Free T4 1.46 ng/dL (0.76-1.46) 11/26/21 18:44 Urine Color Marquita (Yellow) 11/26/21 11:00 Urine Turbidity Clear (Clear) 11/26/21 11:00 Urine pH 6.0 (5.0-7.0) 11/26/21 11:00 Ur Specific [place] 1.021 (1.003-1.030) 11/26/21 11:00 Urine Protein <15 mg/dl mg/dL (Negative) 11/26/21 11:00 Urine Glucose (UA) Neg mg/dL (Negative) 11/26/21 11:00 Urine Ketones Tr mg/dL (Negative) 11/26/21 11:00 Urine Blood Neg (Negative) 11/26/21 11:00 Urine Nitrite Neg (Negative) 11/26/21 11:00 Urine Bilirubin Neg (Negative) 11/26/21 11:00 Urine Urobilinogen 4.0 mg/dL (<2.0) 11/26/21 11:00 Ur Leukocyte Esterase Neg (Negative) 11/26/21 11:00 Urine WBC (Auto) 1.0 /HPF (0.0-6.0) 11/26/21 11:00 Urine RBC (Auto) < 1.0 /HPF (0.0-6.0) 11/26/21 11:00 U Epithel Cells (Auto) < 1.0 /HPF (0-13.0) 11/26/21 11:00 Urine Osmolality 404 Mosm/kg 11/27/21 11:00 Urine Sodium 10 mmol/L 11/27/21 11:00 Plasma/Serum Alcohol 0.04 % (0-0.07) 11/26/21 18:44 Coronavirus (PCR) Negative (Negative) 11/27/21 11:00 Hepatitis A IgM Ab Nonreactive (NonReactive) 11/28/21 13:34 Hep Bs Antigen Nonreactive (Negative) 11/28/21 13:34 Hep B Core IgM Ab Non-reactive (NonReactive) 11/28/21 13:34 Hepatitis C Antibody Nonreactive (NonReactive) 11/28/21 13:34 Reeves/IV: Voiding Method Indwelling Catheter Active Medications - Current Medications Current Medications: Generic Name Dose Route Start Last Admin Trade Name Freq PRN Reason Stop Dose Admin Acetaminophen 650 mg 11/26/21 21:59 11/30/21 21:06 Acetaminophen 325 Mg Tab PO 650 mg Q4H PRN Administration Pain MILD(1-3)/Fever >100.5/OAKES Famotidine 40 mg 11/29/21 22:00 12/02/21 22:14 Famotidine 20 Mg Tab PO 40 mg QHS INDERJIT Administration Folic Acid 1 mg 11/30/21 10:00 12/02/21 09:39 Folic Acid 1 Mg Tab PO 1 mg QDAY INDERJIT Administration Furosemide 20 mg 11/27/21 18:00 12/03/21 06:24 Furosemide 20 Mg/2 Ml Inj IV 20 mg 0600,1800 INDERJIT Administration Heparin Sodium (Porcine) 5,000 unit 11/27/21 22:00 12/02/21 22:14 Heparin 5,000 Unit/1 Ml Vial SUB-Q 5,000 unit Q12HR INDERJIT Administration Lorazepam 2 mg 11/26/21 22:45 11/27/21 03:06 Lorazepam 2 Mg/Ml Vial IV 2 mg Q4H PRN Administration Alcohol Withdrawal Morphine Sulfate 2 mg 11/26/21 21:59 Morphine 2 Mg/1 Ml Inj IV Q4H PRN Pain, Moderate (4-6) Morphine Sulfate 4 mg 11/26/21 21:59 Morphine 4 Mg/1 Ml Inj IV Q4H PRN Pain , Severe (7-10) Multivitamins 1 each 11/30/21 10:00 12/02/21 09:39 Multivitamins ,Therapeutic Tab PO 1 each QDAY INDERJIT Administration Ondansetron HCl 4 mg 11/26/21 21:59 Ondansetron 4 Mg/2 Ml Inj IV Q8H PRN Nausea And Vomiting Sodium Chloride 10 ml 11/26/21 22:00 12/02/21 22:14 Sodium Chloride 0.9% 10 Ml Flush Syringe IV 10 ml BID INDERJIT Administration Sodium Chloride 10 ml 11/26/21 21:59 Sodium Chloride 0.9% 10 Ml Flush Syringe IV PRN PRN LINE FLUSH Thiamine HCl 100 mg 11/30/21 10:00 06/06/22 09:39 Thiamine 100 Mg Tab PO 100 mg QDAY INDERJTI Administration Nutrition/Malnutrition Assess - Dietary Evaluation Nutrition/Malnutrition Findings: Nutrition Notes Start: 11/27/21 18:57 Freq: Status: Active Protocol: Document 11/30/21 12:25 LYN (Rec: 11/30/21 12:36 LYN [id number]) Nutrition Notes Initial or Follow up Brief Note Other Pertinent Diagnosis Metabolic Encephalopathy, Steatohepatitis, Hyponatremia, EtOH Abuse, ... Current Diet Regular Diet (since D 11/29). Height 5 ft 4 in Weight 104 kg Marcus Body Weight (kg) 59.09 BMI 39.3 Weight change and time frame No body weight change reported in 2 days. Weight Status Obese Subjective/Other Information RD consult for routine F/U on dietary advancement. Diet advanced to PO, but no reports available on Pt's PO intake of meals at the time, will assess at F/U. Pt is on Room Air, O2 saturation @ 96%, according to Vital Signs. Percent of energy/protein needs met: Prescribed Regular Diet provides for energy/protein needs (2,289 Kcal/89 g) during LOS. Is patient on ventilator? No Is Patient Ambulatory and/or Out of Bed Yes REE-([place]-ambulatory/OOB) [ 2451.800 NUTR.MSJOOB] Kcal/Kg value to use for calculation 14 Approximate Energy Requirements Using 1456 kcal/Kg Calculation Used for Recommendations Kcal/kg Additional Notes Protein: 0.8-1 g/Kg AdjBW; 66- 82 g/day. Fluids: 1 ml/Kcal, or as per MD. Nutrition Intervention Change Diet Order: Continue Regular Diet. Follow-Up By: 12/06/21 Additional Comments Continue monitoring food tolerance, %PO intake of meals , and BM.
[2021-11-28 19:32] LABS: Blood Urea Nitrogen 14 mg/dL (9-20); Calcium 7.7 mg/dL (8.4-10.2); Hemolysis Index 137
[2021-11-28 19:34] LABS: BUN/Creatinine Ratio 23
[2021-11-28] MEDS ORDERED: FUROSEMIDE 40 MG/4 ML INJ IV ONE (20:02)
[2021-11-28 23:37] LABS: Blood Urea Nitrogen 13 mg/dL (9-20); Calcium 7.7 mg/dL (8.4-10.2); Hemolysis Index 19
[2021-11-28 23:44] LABS: BUN/Creatinine Ratio 26
[2021-11-29] MEDS: POTASSIUM CHLORIDE 10 MEQ 10 MEQ/100 ML BAG IV SCH ×4 (00:16→04:40)
[2021-11-29 02:35] LABS: Blood Urea Nitrogen 12 mg/dL (9-20); Calcium 7.8 mg/dL (8.4-10.2); Hemolysis Index 4
[2021-11-29 02:39] LABS: Albumin 2.6 g/dL (3.9-5); Bilirubin,Direct 1.5 mg/dL (0-0.2)
[2021-11-29 02:47] LABS: BUN/Creatinine Ratio 20
[2021-11-29] MEDS: FUROSEMIDE 20 MG/2 ML INJ IV SCH ×2 (05:05→18:38)
[2021-11-29] MEDS ORDERED: POTASSIUM CHLORIDE 20 MEQ PACKET FEEDTUBE NR (07:16)
[2021-11-29 08:18] LABS: Blood Urea Nitrogen 10 mg/dL (9-20); Calcium 7.7 mg/dL (8.4-10.2); Hemolysis Index 1
[2021-11-29 08:19] LABS: BUN/Creatinine Ratio 17
--- NOTE | 2021-11-29 09:59 | Progress Note ---
Assessment and Plan Hyponatremia likely Hypervolemic, also since have history of Alcohol Abuse could have Beer Potomania Questionable Alcohol withdrawal Anasarca Pneumonia Acidosis Plan: most recent NA 119 mmol/l, correction is at goal cont current management for hyponatremia with fluid restriction and diuretics. no indication for 3% saline Goal correction is 4-6 mmol in 24 hours not exceeding 8 mmol in 24 hours Neuro checks every 4 hours ordered. Checking BMP every 4 hours Ordered for nurse to please call our on-call finance analyst with sodium levels results Monitor I//O's Obtain daily weights Monitor sodium levels closely Subjective Date of service: 11/29/21 Principal diagnosis: hyponatremia Interval history: more awake this AM Objective - Vital Signs Vital signs: Vital Signs - 12hr 11/28/21 11/28/21 11/28/21 22:00 22:16 22:22 Temperature Pulse Rate 85 84 83 Pulse Rate [ From Monitor] Respiratory 30 H 21 25 H Rate Blood Pressure 136/75 136/75 136/75 O2 Sat by Pulse 96 95 96 Oximetry 11/28/21 11/28/21 11/28/21 22:30 22:46 23:00 Temperature Pulse Rate 87 85 91 H Pulse Rate [ From Monitor] Respiratory 27 H 25 H 23 Rate Blood Pressure 136/75 136/75 134/81 O2 Sat by Pulse 94 96 97 Oximetry 11/28/21 11/28/21 11/28/21 23:16 23:30 23:46 Temperature Pulse Rate 84 87 87 Pulse Rate [ From Monitor] Respiratory 30 H 26 H 26 H Rate Blood Pressure 134/81 134/81 134/81 O2 Sat by Pulse 98 96 97 Oximetry 11/29/21 11/29/21 11/29/21 00:00 00:16 00:30 Temperature 98.2 F Pulse Rate 87 86 90 Pulse Rate [ 85 From Monitor] Respiratory 24 25 H 25 H Rate Blood Pressure 135/79 135/79 135/79 O2 Sat by Pulse 96 97 98 Oximetry 11/29/21 11/29/21 11/29/21 00:46 01:00 01:16 Temperature Pulse Rate 87 90 93 H Pulse Rate [ From Monitor] Respiratory 28 H 30 H 28 H Rate Blood Pressure 135/79 132/75 132/75 O2 Sat by Pulse 98 97 95 Oximetry 11/29/21 11/29/21 11/29/21 01:30 01:46 02:00 Temperature Pulse Rate 89 90 88 Pulse Rate [ From Monitor] Respiratory 27 H 28 H 32 H Rate Blood Pressure 132/75 132/75 129/74 O2 Sat by Pulse 97 96 94 Oximetry 11/29/21 11/29/21 11/29/21 02:16 02:30 02:46 Temperature Pulse Rate 87 88 92 H Pulse Rate [ From Monitor] Respiratory 32 H 30 H 16 Rate Blood Pressure 129/74 129/74 129/74 O2 Sat by Pulse 97 96 97 Oximetry 11/29/21 11/29/21 11/29/21 03:00 03:16 03:30 Temperature Pulse Rate 89 89 90 Pulse Rate [ From Monitor] Respiratory 27 H 20 31 H Rate Blood Pressure 139/77 139/77 139/77 O2 Sat by Pulse 93 96 96 Oximetry 11/29/21 11/29/21 11/29/21 03:46 04:00 04:16 Temperature 98.2 F Pulse Rate 89 86 87 Pulse Rate [ 85 From Monitor] Respiratory 27 H 31 H 22 Rate Blood Pressure 139/77 123/59 123/59 O2 Sat by Pulse 97 94 97 Oximetry 11/29/21 11/29/21 11/29/21 04:30 04:46 05:00 Temperature Pulse Rate 88 89 88 Pulse Rate [ From Monitor] Respiratory 29 H 23 22 Rate Blood Pressure 123/59 123/59 131/78 O2 Sat by Pulse 97 96 94 Oximetry 11/29/21 11/29/21 11/29/21 05:16 05:30 05:46 Temperature Pulse Rate 90 96 H 90 Pulse Rate [ From Monitor] Respiratory 24 18 25 H Rate Blood Pressure 131/78 131/78 131/78 O2 Sat by Pulse 97 97 95 Oximetry 11/29/21 11/29/21 11/29/21 06:00 06:16 06:30 Temperature Pulse Rate 88 90 90 Pulse Rate [ From Monitor] Respiratory 23 30 H 24 Rate Blood Pressure 132/69 132/69 132/69 O2 Sat by Pulse 91 96 95 Oximetry 11/29/21 11/29/21 11/29/21 06:46 07:00 07:16 Temperature Pulse Rate 92 H 92 H 91 H Pulse Rate [ From Monitor] Respiratory 27 H 25 H 26 H Rate Blood Pressure 132/69 141/83 141/83 O2 Sat by Pulse 97 95 96 Oximetry 11/29/21 11/29/21 11/29/21 07:30 07:46 08:00 Temperature 98.6 F Pulse Rate 94 H 94 H 92 H Pulse Rate [ 84 From Monitor] Respiratory 30 H 31 H 20 Rate Blood Pressure 141/83 141/83 142/76 O2 Sat by Pulse 97 96 95 Oximetry 11/29/21 11/29/21 11/29/21 08:16 08:30 08:46 Temperature Pulse Rate 98 H 99 H 97 H Pulse Rate [ From Monitor] Respiratory 26 H 23 32 H Rate Blood Pressure 142/76 142/76 142/76 O2 Sat by Pulse 96 94 94 Oximetry 11/29/21 11/29/21 11/29/21 09:00 09:16 09:30 Temperature Pulse Rate 97 H 99 H 100 H Pulse Rate [ From Monitor] Respiratory 26 H 30 H 27 H Rate Blood Pressure 144/78 144/78 144/78 O2 Sat by Pulse 91 95 95 Oximetry - Lab 11/28/21 05:04 11/29/21 07:53 Most recent lab results ABG pH 7.393 pH Units (7.350-7.450) 11/26/21 18:31 ABG pCO2 19.1 mm Hg 11/26/21 18:31 ABG pO2 110.8 mm Hg (80.0-90.0) H 11/26/21 18:31 ABG HCO3 11.4 mmol/L (20.0-26.0) L 11/26/21 18:31 ABG O2 Saturation 98.1 % (95.0-99.0) 11/26/21 18:31 Calcium 7.7 mg/dL (8.4-10.2) L 11/29/21 07:53 Phosphorus 3.20 mg/dL (2.5-4.5) 11/28/21 05:04 Magnesium 1.90 mg/dL (1.7-2.3) 11/28/21 05:04 Urine Sodium 10 mmol/L 11/27/21 11:00 Medications & Allergies - Medications Allergies/Adverse Reactions: Allergies No Known Allergies Allergy (Verified 11/26/21 18:35) Home Medications: Home Medications Medication Instructions Recorded Confirmed Last Taken Type No Known Home Medications [No 11/28/21 11/28/21 Unknown History Reported Home Medications] Active Medications: Generic Name Dose Route Start Last Admin Trade Name Freq PRN Reason Stop Dose Admin Acetaminophen 650 mg 11/26/21 21:59 Acetaminophen 325 Mg Tab PO Q4H PRN Pain MILD(1-3)/Fever >100.5/OAKES Famotidine 20 mg 11/27/21 11:00 11/28/21 22:17 Famotidine 20 Mg Tab FEEDTUBE 20 mg BID INDERJIT Administration Folic Acid 1 mg 11/27/21 11:00 11/28/21 10:51 Folic Acid 1 Mg Tab FEEDTUBE 1 mg DAILY INDERJIT Administration Furosemide 20 mg 11/27/21 18:00 11/29/21 05:05 Furosemide 20 Mg/2 Ml Inj IV 20 mg 0600,1800 INDERJIT Administration Heparin Sodium (Porcine) 5,000 unit 11/27/21 22:00 11/28/21 22:17 Heparin 5,000 Unit/1 Ml Vial SUB-Q 5,000 unit Q12HR INDERJIT Administration Dexmedetomidine HCl 400 mcg/ 100 mls @ 5.216 mls/hr 11/27/21 05:00 11/28/21 11:00 Sodium Chloride IV Infused TITRATE INDERJIT Titration Protocol 0.2 MCG/KG/HR Lorazepam 2 mg 11/26/21 22:45 11/27/21 03:06 Lorazepam 2 Mg/Ml Vial IV 2 mg Q4H PRN Administration Alcohol Withdrawal Morphine Sulfate 2 mg 11/26/21 21:59 Morphine 2 Mg/1 Ml Inj IV Q4H PRN Pain, Moderate (4-6) Morphine Sulfate 4 mg 11/26/21 21:59 Morphine 4 Mg/1 Ml Inj IV Q4H PRN Pain , Severe (7-10) Ondansetron HCl 4 mg 11/26/21 21:59 Ondansetron 4 Mg/2 Ml Inj IV Q8H PRN Nausea And Vomiting Potassium Chloride 40 meq 11/29/21 07:16 Potassium Chloride 20 Meq Packet FEEDTUBE 11/29/21 11:00 ONCE NR Sodium Chloride 10 ml 11/26/21 22:00 11/28/21 22:17 Sodium Chloride 0.9% 10 Ml Flush Syringe IV 10 ml BID INDERJIT Administration Sodium Chloride 10 ml 11/26/21 21:59 Sodium Chloride 0.9% 10 Ml Flush Syringe IV PRN PRN LINE FLUSH Thiamine HCl 100 mg 11/27/21 11:00 11/28/21 10:51 Thiamine 100 Mg Tab FEEDTUBE 100 mg QDAY INDERJIT Administration
[2021-11-29] MEDS: MULTIVITAMIN / MINERAL ORAL LIQUID 15 ML FEEDTUBE SCH (11:06)
[2021-11-29] MEDS: FAMOTIDINE 20 MG TAB FEEDTUBE SCH (11:06)
[2021-11-29] MEDS: THIAMINE 100 MG TAB FEEDTUBE SCH (11:06)
[2021-11-29] MEDS: FOLIC ACID 1 MG TAB FEEDTUBE SCH (11:07)
[2021-11-29] MEDS: HEPARIN 5,000 UNIT/1 ML VIAL SUB-Q SCH ×2 (11:07→21:21)
[2021-11-29 12:13] LABS: Blood Urea Nitrogen 9 mg/dL (9-20); Calcium 8.1 mg/dL (8.4-10.2); Hemolysis Index 10
[2021-11-29 12:34] LABS: BUN/Creatinine Ratio 18
--- NOTE | 2021-11-29 13:20 | Progress Note ---
Assessment and Plan 36 y/o male with altered mental status secondary to hypervolemic hyponatremia 11/29/21: stable for floor transfer. Further management by renal 1. EF was normal EF but diastolic dysfunction 2. ABD ultrasound showed fatty liver 3. No large amount of fluid appreciated on abdominal bedside ultrasound 4. Follow up renal recs 5. Continue ICU care, wean precedex CCT 31 minutes Subjective Date of service: 11/29/21 Principal diagnosis: hyponatremia Interval history: No acute events. Mental state is better again today. Na at 119 Objective - Constitutional Vitals: Vital Signs - 12hr 11/29/21 11/29/21 11/29/21 01:30 01:46 02:00 Temperature Pulse Rate 89 90 88 Pulse Rate [ From Monitor] Respiratory 27 H 28 H 32 H Rate Respiratory Rate [Bilateral Arm] Blood Pressure 132/75 132/75 129/74 O2 Sat by Pulse 97 96 94 Oximetry 11/29/21 11/29/21 11/29/21 02:16 02:30 02:46 Temperature Pulse Rate 87 88 92 H Pulse Rate [ From Monitor] Respiratory 32 H 30 H 16 Rate Respiratory Rate [Bilateral Arm] Blood Pressure 129/74 129/74 129/74 O2 Sat by Pulse 97 96 97 Oximetry 11/29/21 11/29/21 11/29/21 03:00 03:16 03:30 Temperature Pulse Rate 89 89 90 Pulse Rate [ From Monitor] Respiratory 27 H 20 31 H Rate Respiratory Rate [Bilateral Arm] Blood Pressure 139/77 139/77 139/77 O2 Sat by Pulse 93 96 96 Oximetry 11/29/21 11/29/21 11/29/21 03:46 04:00 04:16 Temperature 98.2 F Pulse Rate 89 86 87 Pulse Rate [ 85 From Monitor] Respiratory 27 H 31 H 22 Rate Respiratory Rate [Bilateral Arm] Blood Pressure 139/77 123/59 123/59 O2 Sat by Pulse 97 94 97 Oximetry 11/29/21 11/29/21 11/29/21 04:30 04:46 05:00 Temperature Pulse Rate 88 89 88 Pulse Rate [ From Monitor] Respiratory 29 H 23 22 Rate Respiratory Rate [Bilateral Arm] Blood Pressure 123/59 123/59 131/78 O2 Sat by Pulse 97 96 94 Oximetry 11/29/21 11/29/21 11/29/21 05:16 05:30 05:46 Temperature Pulse Rate 90 96 H 90 Pulse Rate [ From Monitor] Respiratory 24 18 25 H Rate Respiratory Rate [Bilateral Arm] Blood Pressure 131/78 131/78 131/78 O2 Sat by Pulse 97 97 95 Oximetry 11/29/21 11/29/21 11/29/21 06:00 06:16 06:30 Temperature Pulse Rate 88 90 90 Pulse Rate [ From Monitor] Respiratory 23 30 H 24 Rate Respiratory Rate [Bilateral Arm] Blood Pressure 132/69 132/69 132/69 O2 Sat by Pulse 91 96 95 Oximetry 11/29/21 11/29/21 11/29/21 06:46 07:00 07:16 Temperature Pulse Rate 92 H 92 H 91 H Pulse Rate [ From Monitor] Respiratory 27 H 25 H 26 H Rate Respiratory Rate [Bilateral Arm] Blood Pressure 132/69 141/83 141/83 O2 Sat by Pulse 97 95 96 Oximetry 11/29/21 11/29/21 11/29/21 07:30 07:46 08:00 Temperature 98.6 F Pulse Rate 94 H 94 H 92 H Pulse Rate [ 84 From Monitor] Respiratory 30 H 31 H 20 Rate Respiratory Rate [Bilateral Arm] Blood Pressure 141/83 141/83 142/76 O2 Sat by Pulse 97 96 95 Oximetry 11/29/21 11/29/21 11/29/21 08:16 08:30 08:46 Temperature Pulse Rate 98 H 99 H 97 H Pulse Rate [ From Monitor] Respiratory 26 H 23 32 H Rate Respiratory Rate [Bilateral Arm] Blood Pressure 142/76 142/76 142/76 O2 Sat by Pulse 96 95 94 Oximetry 11/29/21 11/29/21 11/29/21 09:00 09:16 09:30 Temperature Pulse Rate 97 H 99 H 100 H Pulse Rate [ From Monitor] Respiratory 26 H 30 H 27 H Rate Respiratory Rate [Bilateral Arm] Blood Pressure 144/78 144/78 144/78 O2 Sat by Pulse 91 95 95 Oximetry 11/29/21 11/29/21 11/29/21 09:46 10:00 10:16 Temperature Pulse Rate 98 H 97 H 97 H Pulse Rate [ From Monitor] Respiratory 30 H 27 H 28 H Rate Respiratory 20 Rate [Bilateral Arm] Blood Pressure 144/78 128/75 128/75 O2 Sat by Pulse 96 94 96 Oximetry 11/29/21 11/29/21 11/29/21 10:30 10:46 11:00 Temperature Pulse Rate 100 H 96 H 95 H Pulse Rate [ From Monitor] Respiratory 23 25 H 24 Rate Respiratory Rate [Bilateral Arm] Blood Pressure 128/75 128/75 144/84 O2 Sat by Pulse 97 95 95 Oximetry 11/29/21 11/29/21 11/29/21 11:16 11:30 12:00 Temperature 97.7 F Pulse Rate 97 H 95 H Pulse Rate [ From Monitor] Respiratory 27 H 27 H Rate Respiratory Rate [Bilateral Arm] Blood Pressure 128/75 128/75 O2 Sat by Pulse 97 98 Oximetry - Labs CBC & Chem 7: 11/28/21 05:04 11/29/21 11:26 Labs: Abnormal lab results 11/28/21 11/28/21 11/28/21 Range/Units 16:08 19:03 23:10 Sodium 116 L* 114 L* 117 L* (137-145) mmol/L Potassium 3.1 L D (3.6-5.0) mmol/L Chloride 85.7 L 81.4 L 82.0 L (98-107) mmol/L Carbon Dioxide 15 L D 21 L (22-30) mmol/L Creatinine 0.6 L 0.6 L 0.5 L (0.8-1.3) mg/dL Glucose 72 L (75-100) mg/dL Calcium 7.7 L 7.7 L 7.7 L (8.4-10.2) mg/dL Total Bilirubin (0.1-1.2) mg/dL Direct Bilirubin (0-0.2) mg/dL AST (5-40) units/L Alkaline Phosphatase (35-129) units/L Albumin (3.9-5) g/dL 11/29/21 11/29/21 11/29/21 Range/Units 02:06 02:06 07:53 Sodium 118 L* 119 L* (137-145) mmol/L Potassium 3.5 L 3.3 L (3.6-5.0) mmol/L Chloride 82.4 L 86.2 L (98-107) mmol/L Carbon Dioxide 21 L (22-30) mmol/L Creatinine 0.6 L 0.6 L (0.8-1.3) mg/dL Glucose (75-100) mg/dL Calcium 7.8 L 7.7 L (8.4-10.2) mg/dL Total Bilirubin 2.50 H (0.1-1.2) mg/dL Direct Bilirubin 1.5 H (0-0.2) mg/dL AST 181 H (5-40) units/L Alkaline Phosphatase 183 H (35-129) units/L Albumin 2.6 L (3.9-5) g/dL 11/29/21 Range/Units 11:26 Sodium 120 L (137-145) mmol/L Potassium 3.4 L (3.6-5.0) mmol/L Chloride 83.7 L (98-107) mmol/L Carbon Dioxide (22-30) mmol/L Creatinine 0.5 L (0.8-1.3) mg/dL Glucose (75-100) mg/dL Calcium 8.1 L (8.4-10.2) mg/dL Total Bilirubin (0.1-1.2) mg/dL Direct Bilirubin (0-0.2) mg/dL AST (5-40) units/L Alkaline Phosphatase (35-129) units/L Albumin (3.9-5) g/dL Medications & Allergies - Medications Allergies/Adverse Reactions: Allergies No Known Allergies Allergy (Verified 11/26/21 18:35) Home Medications: Home Medications Medication Instructions Recorded Confirmed Last Taken Type No Known Home Medications [No 11/28/21 11/28/21 Unknown History Reported Home Medications] Active Medications: Generic Name Dose Route Start Last Admin Trade Name Freq PRN Reason Stop Dose Admin Acetaminophen 650 mg 11/26/21 21:59 Acetaminophen 325 Mg Tab PO Q4H PRN Pain MILD(1-3)/Fever >100.5/O[place]ES Famotidine 20 mg 11/29/21 22:00 Famotidine 20 Mg/2 Ml Inj IV BID INDERJIT Folic Acid 1 mg 11/30/21 10:00 Folic Acid 1 Mg Tab PO QDAY INDERJIT Furosemide 20 mg 11/27/21 18:00 11/29/21 05:05 Furosemide 20 Mg/2 Ml Inj IV 20 mg 0600,1800 INDERJIT Administration Heparin Sodium (Porcine) 5,000 unit 11/27/21 22:00 11/29/21 11:07 Heparin 5,000 Unit/1 Ml Vial SUB-Q 5,000 unit Q12HR INDERJIT Administration Dexmedetomidine HCl 400 mcg/ 100 mls @ 5.216 mls/hr 11/27/21 05:00 06/02/22 11:00 Sodium Chloride IV Infused TITRATE INDERJIT Titration Protocol 0.2 MCG/KG/HR Lorazepam 2 mg 11/26/21 22:45 11/27/21 03:06 Lorazepam 2 Mg/Ml Vial IV 2 mg Q4H PRN Administration Alcohol Withdrawal Morphine Sulfate 2 mg 11/26/21 21:59 Morphine 2 Mg/1 Ml Inj IV Q4H PRN Pain, Moderate (4-6) Morphine Sulfate 4 mg 11/26/21 21:59 Morphine 4 Mg/1 Ml Inj IV Q4H PRN Pain , Severe (7-10) Multivitamins 1 each 11/30/21 10:00 Multivitamins ,Therapeutic Tab PO QDAY INDERJIT Ondansetron HCl 4 mg 11/26/21 21:59 Ondansetron 4 Mg/2 Ml Inj IV Q8H PRN Nausea And Vomiting Sodium Chloride 10 ml 11/26/21 22:00 11/28/21 22:17 Sodium Chloride 0.9% 10 Ml Flush Syringe IV 10 ml BID INDERJIT Administration Sodium Chloride 10 ml 11/26/21 21:59 Sodium Chloride 0.9% 10 Ml Flush Syringe IV PRN PRN LINE FLUSH Thiamine HCl 100 mg 11/30/21 10:00 Thiamine 100 Mg Tab PO QDAY INDERJIT
[2021-11-29 15:39] LABS: Blood Urea Nitrogen 9 mg/dL (9-20); Hemolysis Index 16
[2021-11-29 15:41] LABS: BUN/Creatinine Ratio 15
--- NOTE | 2021-11-29 15:49 | Progress Note ---
<JORGEIVONNEIna - Last Filed: 11/29/21 15:52> Assessment and Plan Assessment and plan: This is a 36-year-old male with EtOH abuse admitted with severe hyponatremia, severe hypochloremia, lactic acidosis, leukocytosis and COVID-19 PUI Neuro: Acute metabolic encephalopathy, h/o EtOH abuse -[facility] protocol -s/p Precedex drip -CT head shows no acute abnormalities -Reorientation as needed -Maintain sleep-wake cycle -As needed analgesia -Admit serum alcohol 0.04 -Thiamine, folic acid -Neurochecks every 2 Cardiac: NAD -Cardiology consulted, appreciate recommendations -Blood pressure monitoring per protocol -Echocardiogram shows LVEF 50 to 55%, impaired LV relaxation, RVSP 33 mmHg, moderate TR -Admit proBNP 1043 Respiratory: Acute hypoxic respiratory failure -[facility] consulted, appreciate recommendations -Currently on NC -Wean supplemental oxygen as tolerated -Pulmonary hygiene -SPO2 monitoring GI: Obesity, transaminitis -24 hours -3540 mL -PPI -regular diet -Abdominal ultrasound showed hepatic steatosis without abdominal ascites -Trend LFTs : Severe hyponatremia (improving), hypochloremia, hypokalemia, urinary retention -Nephrology consulted, appreciate recommendations -Per Nephro; likely Beer Potomania given hx -Continue every 4 hr BMPs -Continue diuresis per nephrology -S/p DDAVP x2, 1500 mL D5W overnight 11/27-11/28 -Strict intake and output -Renally dose medications -Avoid nephrotoxic medications -Urine osmolality 404, urine sodium 10, serum osmo 243 -Lasix twice daily -S/p hypertonic saline -Replete K ID: COVID-19 PUI, lactic acidosis (resolved) -COVID-19 PCR negative -11/26 BC/UC NGTD -Monitor WBC and temperature curve Endo: NAD -Avoid hypoglycemia Heme: Leukocytosis (resolved) -Trend CBC -heparin subq -SCDs to BLE while in bed The high probability of a clinically significant, sudden or life threatening deterioration of the [multi] system(s) required my full and direct attention, intervention and personal management. The aggregate critical care time was [60] minutes. This time is in addition to time spent performing reported procedures but includes the following: [x] Data Review and interpretation [x] Patient assessment and monitoring of vital signs [x] Documentation [x] Medication orders and management I Disposition Plan: transfer to floor Total Time Spent with Patient (Minutes): 60 History Interval history: This is a 36 year old male with EtOH abuse who presented to the ED on 11/26 with complaints of diaphoresis, generalized abdominal swelling, leg edema and shortness of breath with worsening symptoms over the past 5 days via EMS. Last reported alcohol intake was 11/25 per ED documentation. In the ED patient was placed on supplemental oxygen and repositioned with improvement in diaphoresis and respiratory distress. Workup in the ED showed groundglass opacities suggestive of edema versus infiltrate on CXR, severe hyponatermia, severe hypochloremia, lactic acidosis, leukocytosis and nephrology was consulted. CT head showed no acute abnormalityand both CTA chest and CT abdomen/pelvis showed diffuse groundglass airspace opacities, hepatic cirrhosis and generalized an asarca. He was given hypertonic saline at 25mL/hr and BMP ordered every 4 hours. Patient was admitted to the hospitalist service with consult to 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 Hospital course to date: 11/27: Obtain abd US, echo, continue BMP q 4 hoyrs, DHT placed. Continue neuro checks q2, COVID PCR (-), obtain urine sodium and osmo, possible diagnostic paracentisis tomorrow. 11/28:Improvement noted to sodium, yesterday evening and overnight patient received 1500 mL D5W, DDAVP x2. Lasix was withheld. We will continue to track BMPs every 4 hours. 11/29: Sodium continues to rise, continue diuresis. Patient will be transferred to the floor. Hospitalist Physical - Constitutional Vitals: Temp Pulse Resp BP Pulse Ox 97.7 F 92 H 26 H 124/74 98 11/29/21 12:00 11/29/21 12:16 11/29/21 12:16 11/29/21 13:16 11/29/21 13:16 General appearance: Present: no acute distress - EENT Eyes: Present: PERRL, EOM intact ENT: hearing intact, clear oral mucosa, dentition normal - Neck Neck: Present: normal ROM - Respiratory Respiratory effort: normal Respiratory: bilateral: CTA, diminished - Cardiovascular Rhythm: regular Heart Sounds: Present: S1 & S2. Absent: systolic murmur, diastolic murmur - Extremities Extremities: no ischemia, pulses intact, pulses symmetrical, No edema, normal temperature, normal color Peripheral Pulses: within normal limits - Abdominal General gastrointestinal: soft, non-tender, normal bowel sounds - Integumentary Integumentary: Present: warm, dry - Psychiatric Psychiatric: cooperative - Neurologic Neurologic: CNII-XII intact, no focal deficits, moves all extremities - Allied Health Allied health notes reviewed: nursing, social work Results - Labs CBC & Chem 7: 11/28/21 05:04 11/29/21 14:50 Labs: Laboratory Last Values WBC 6.2 K/mm3 (4.5-11.0) 11/28/21 05:04 RBC 3.44 M/mm3 (3.65-5.03) L 11/28/21 05:04 Hgb 11.8 gm/dl (11.8-15.2) 11/28/21 05:04 Hct 34.1 % (35.5-45.6) L D 11/28/21 05:04 MCV 99 fl (84-94) H 11/28/21 05:04 MCH 34 pg (28-32) H 11/28/21 05:04 MCHC 35 % (32-34) H 11/28/21 05:04 RDW 14.2 % (13.2-15.2) 11/28/21 05:04 Plt Count 145 K/mm3 (140-440) 11/28/21 05:04 Lymph % (Auto) 12.1 % (13.4-35.0) L 11/27/21 02:03 [place] % (Auto) 12.8 % (0.0-7.3) H 11/27/21 02:03 Eos % (Auto) 0.2 % (0.0-4.3) 11/27/21 02:03 Baso % (Auto) 0.5 % (0.0-1.8) 11/27/21 02:03 Lymph # (Auto) 1.9 K/mm3 (1.2-5.4) 11/27/21 02:03 [place] # (Auto) 2.0 K/mm3 (0.0-0.8) H 11/27/21 02:03 Eos # (Auto) 0.0 K/mm3 (0.0-0.4) 11/27/21 02:03 Baso # (Auto) 0.1 K/mm3 (0.0-0.1) 11/27/21 02:03 Seg Neutrophils % 74.4 % (40.0-70.0) H 11/27/21 02:03 Seg Neutrophils # 11.5 K/mm3 (1.8-7.7) H 11/27/21 02:03 PT 16.2 Sec. (12.2-14.9) H 11/26/21 16:24 INR 1.16 (0.87-1.13) H 11/26/21 16:24 APTT 38.3 Sec. (24.2-36.6) H 11/26/21 16:24 ABG pH 7.393 pH Units (7.350-7.450) 11/26/21 18:31 ABG pCO2 19.1 mm Hg 11/26/21 18:31 ABG pO2 110.8 mm Hg (80.0-90.0) H 11/26/21 18:31 ABG HCO3 11.4 mmol/L (20.0-26.0) L 11/26/21 18:31 ABG O2 Saturation 98.1 % (95.0-99.0) 11/26/21 18:31 ABG O2 Content 20.6 (0.0-44) 11/26/21 18:31 ABG Base Excess -10.7 mmol/L (-2.0-3.0) L 11/26/21 18:31 ABG Hemoglobin 15.2 gm/dl (14.0-18.0) 11/26/21 18:31 ABG Carboxyhemoglobin 1.6 % (0.0-5.0) 11/26/21 18:31 ABG Methemoglobin 0.7 % (0.0-1.5) 11/26/21 18:31 Oxyhemoglobin 95.9 % (95.0-99.0) 11/26/21 18: FiO2 28 % 11/26/21 18:31 Sodium 123 mmol/L (137-145) L 11/29/21 14:50 Potassium 3.3 mmol/L (3.6-5.0) L 11/29/21 14:50 Chloride 89.0 mmol/L (98-107) L 11/29/21 14:50 Carbon Dioxide 22 mmol/L (22-30) 11/29/21 14:50 Anion Gap 15 mmol/L 11/29/21 14:50 BUN 9 mg/dL (9-20) 11/29/21 14:50 Creatinine 0.6 mg/dL (0.8-1.3) L 11/29/21 14:50 Estimated GFR > 60 ml/min 11/29/21 14:50 BUN/Creatinine Ratio 15 % 11/29/21 14:50 Glucose 114 mg/dL (75-100) H 11/29/21 14:50 POC Glucose 93 mg/dL (70-105) 11/29/21 11:02 Ketones Quantitative Negative (Negative) 11/26/21 16:24 Osmolality 243 Mosm/kg 11/27/21 11:09 Lactic Acid 4.70 mmol/L (0.7-2.0) H* 11/26/21 21:02 Calcium 8.0 mg/dL (8.4-10.2) L 11/29/21 14:50 Phosphorus 3.20 mg/dL (2.5-4.5) 11/28/21 05:04 Magnesium 1.90 mg/dL (1.7-2.3) 11/28/21 05:04 Total Bilirubin 2.50 mg/dL (0.1-1.2) H 11/29/21 02:06 Direct Bilirubin 1.5 mg/dL (0-0.2) H 11/29/21 02:06 Indirect Bilirubin 1.0 mg/dL 11/29/21 02:06 AST 181 units/L (5-40) H 11/29/21 02:06 ALT 45 units/L (7-56) 11/29/21 02:06 Alkaline Phosphatase 183 units/L (35-129) H 11/29/21 02:06 Ammonia 59.0 umol/L (25-60) 11/26/21 18:51 NT-Pro-B Natriuret Pep 1043 pg/mL (0-450) H 11/26/21 16:24 Total Protein 6.5 g/dL (6.3-8.2) 11/29/21 02:06 Albumin 2.6 g/dL (3.9-5) L 11/29/21 02:06 Albumin/Globulin Ratio 0.7 % 11/29/21 02:06 Lipase 78 units/L (13-60) H 11/26/21 16:24 TSH 3.910 mlU/mL (0.270-4.200) 11/26/21 18:44 Free T4 1.46 ng/dL (0.76-1.46) 11/26/21 18:44 Urine Color Marquita (Yellow) 11/26/21 11:00 Urine Turbidity Clear (Clear) 11/26/21 11:00 Urine pH 6.0 (5.0-7.0) 11/26/21 11:00 Ur Specific [place] 1.021 (1.003-1.030) 11/26/21 11:00 Urine Protein <15 mg/dl mg/dL (Negative) 11/26/21 11:00 Urine Glucose (UA) Neg mg/dL (Negative) 11/26/21 11:00 Urine Ketones Tr mg/dL (Negative) 11/26/21 11:00 Urine Blood Neg (Negative) 11/26/21 11:00 Urine Nitrite Neg (Negative) 11/26/21 11:00 Urine Bilirubin Neg (Negative) 11/26/21 11:00 Urine Urobilinogen 4.0 mg/dL (<2.0) 11/26/21 11:00 Ur Leukocyte Esterase Neg (Negative) 11/26/21 11:00 Urine WBC (Auto) 1.0 /HPF (0.0-6.0) 11/26/21 11:00 Urine RBC (Auto) < 1.0 /HPF (0.0-6.0) 11/26/21 11:00 U Epithel Cells (Auto) < 1.0 /HPF (0-13.0) 11/26/21 11:00 Urine Osmolality 404 Mosm/kg 11/27/21 11:00 Urine Sodium 10 mmol/L 11/27/21 11:00 Plasma/Serum Alcohol 0.04 % (0-0.07) 11/26/21 18:44 Coronavirus (PCR) Negative (Negative) 11/27/21 11:00 Hepatitis A IgM Ab Nonreactive (NonReactive) 11/28/21 13:34 Hep Bs Antigen Nonreactive (Negative) 11/28/21 13:34 Hep B Core IgM Ab Non-reactive (NonReactive) 11/28/21 13:34 Hepatitis C Antibody Nonreactive (NonReactive) 11/28/21 13:34 Microbiology: Microbiology 11/26/21 18:34 Urine,Clean Catch Urine Culture - Preliminary NO GROWTH AFTER 24 HOURS 11/26/21 21:02 Peripheral/Venous Blood Culture - Preliminary NO GROWTH AFTER 48 HOURS 11/26/21 21:02 Peripheral/Venous Blood Culture - Preliminary NO GROWTH AFTER 48 HOURS Reeves/IV: Voiding Method Indwelling Catheter Active Medications - Current Medications Current Medications: Generic Name Dose Route Start Last Admin Trade Name Freq PRN Reason Stop Dose Admin Acetaminophen 650 mg 11/26/21 21:59 Acetaminophen 325 Mg Tab PO Q4H PRN Pain MILD(1-3)/Fever >100.5/OAKES Famotidine 20 mg 11/29/21 22:00 Famotidine 20 Mg/2 Ml Inj IV BID [facility] Folic Acid 1 mg 11/30/21 10:00 Folic Acid 1 Mg Tab PO QDAY [facility] Furosemide 20 mg 11/27/21 18:00 11/29/21 05:05 Furosemide 20 Mg/2 Ml Inj IV 20 mg 0600,1800 [facility] Administration Heparin Sodium (Porcine) 5,000 unit 11/27/21 22:00 11/29/21 11:07 Heparin 5,000 Unit/1 Ml Vial SUB-Q 5,000 unit Q12HR [facility] Administration Dexmedetomidine HCl 400 mcg/ 100 mls @ 5.216 mls/hr 11/27/21 05:00 11/28/21 11:00 Sodium Chloride IV Infused TITRATE [facility] Titration Protocol 0.2 MCG/KG/HR Lorazepam 2 mg 11/26/21 22:45 11/27/21 03:06 Lorazepam 2 Mg/Ml Vial IV 2 mg Q4H PRN Administration Alcohol Withdrawal Morphine Sulfate 2 mg 11/26/21 21:59 Morphine 2 Mg/1 Ml Inj IV Q4H PRN Pain, Moderate (4-6) Morphine Sulfate 4 mg 11/26/21 21:59 Morphine 4 Mg/1 Ml Inj IV Q4H PRN Pain , Severe (7-10) Multivitamins 1 each 11/30/21 10:00 Multivitamins ,Therapeutic Tab PO QDAY [facility] Ondansetron HCl 4 mg 11/26/21 21:59 Ondansetron 4 Mg/2 Ml Inj IV Q8H PRN Nausea And Vomiting Sodium Chloride 10 ml 11/26/21 22:00 06/02/22 22:17 Sodium Chloride 0.9% 10 Ml Flush Syringe IV 10 ml BID INDERJIT Administration Sodium Chloride 10 ml 11/26/21 21:59 Sodium Chloride 0.9% 10 Ml Flush Syringe IV PRN PRN LINE FLUSH Thiamine HCl 100 mg 11/30/21 10:00 Thiamine 100 Mg Tab PO QDAY INDERJIT Nutrition/Malnutrition Assess - Dietary Evaluation Nutrition/Malnutrition Findings: Nutrition Notes Start: 11/27/21 18:57 Freq: Status: Active Protocol: Document 11/28/21 17:12 LYN (Rec: 11/28/21 17:24 LYN [id number]) Nutrition Notes Need for Assessment generated from: heart doctor,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 Current Diet NPO (since 11/27 11:01). 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 0.326 Kg body weight loss in 1 day reported. Weight Status Morbidly Obese Subjective/Other Information RD consult for risk of malnutrition assessment. Pt continues on NPO. Pt is on Room Air, O2 saturation @ 99%, according to Vital Signs. Pt shows no signs of concern for risk of malnutrition at the time, according to Physical Assessment History notes. Percent of energy/protein needs met: Pt currently on NPO. Is patient on ventilator? No Is Patient Ambulatory and/or Out of Bed Yes REE-([facility]-ambulatory/OOB) [ 2451.800 NUTR.MSJOOB] Kcal/Kg value to use for calculation 14 Approximate Energy Requirements Using 1456 kcal/Kg Calculation Used for Recommendations Kcal/kg Additional Notes Protein: 0.8-1 g/Kg AdjBW; 66- 82 g/day. Fluids: 1 ml/Kcal, or as per MD. Nutrition Intervention Follow-Up By: 11/30/21 Additional Comments When pertinent, start monitoring food tolerance, %PO intake of meals, and BM. <SIVAN KINSEY - Last Filed: 12/03/21 10:20> Assessment and Plan Assessment and plan: I saw and evaluated the patient. Discussed with the nurse practitioner and agree with their findings and plan as documented in this note. Hospitalist Physical - Constitutional Vitals: Temp Pulse Resp BP Pulse Ox 98.6 F 71 18 120/70 98 12/03/21 05:26 12/03/21 05:26 12/03/21 05:26 12/03/21 05:26 12/03/21 05:26 Results - Labs CBC & Chem 7: 11/28/21 05:04 12/03/21 05:38 Labs: Laboratory Last Values WBC 6.2 K/mm3 (4.5-11.0) 11/28/21 05:04 RBC 3.44 M/mm3 (3.65-5.03) L 11/28/21 05:04 Hgb 11.8 gm/dl (11.8-15.2) 11/28/21 05:04 Hct 34.1 % (35.5-45.6) L D 11/28/21 05:04 MCV 99 fl (84-94) H 11/28/21 05:04 MCH 34 pg (28-32) H 11/28/21 05:04 MCHC 35 % (32-34) H 11/28/21 05:04 RDW 14.2 % (13.2-15.2) 11/28/21 05:04 Plt Count 145 K/mm3 (140-440) 11/28/21 05:04 Lymph % (Auto) 12.1 % (13.4-35.0) L 11/27/21 02:03 [place] % (Auto) 12.8 % (0.0-7.3) H 11/27/21 02:03 Eos % (Auto) 0.2 % (0.0-4.3) 11/27/21 02:03 Baso % (Auto) 0.5 % (0.0-1.8) 11/27/21 02:03 Lymph # (Auto) 1.9 K/mm3 (1.2-5.4) 11/27/21 02:03 [place] # (Auto) 2.0 K/mm3 (0.0-0.8) H 11/27/21 02:03 Eos # (Auto) 0.0 K/mm3 (0.0-0.4) 11/27/21 02:03 Baso # (Auto) 0.1 K/mm3 (0.0-0.1) 11/27/21 02:03 Seg Neutrophils % 74.4 % (40.0-70.0) H 11/27/21 02:03 Seg Neutrophils # 11.5 K/mm3 (1.8-7.7) H 11/27/21 02:03 PT 16.2 Sec. (12.2-14.9) H 11/26/21 16:24 INR 1.16 (0.87-1.13) H 11/26/21 16:24 APTT 38.3 Sec. (24.2-36.6) H 11/26/21 16:24 ABG pH 7.393 pH Units (7.350-7.450) 11/26/21 18:31 ABG pCO2 19.1 mm Hg 11/26/21 18: ABG pO2 110.8 mm Hg (80.0-90.0) H 11/26/21 18:31 ABG HCO3 11.4 mmol/L (20.0-26.0) L 11/26/21 18:31 ABG O2 Saturation 98.1 % (95.0-99.0) 11/26/21 18:31 ABG O2 Content 20.6 (0.0-44) 11/26/21 18:31 ABG Base Excess -10.7 mmol/L (-2.0-3.0) L 11/26/21 18:31 ABG Hemoglobin 15.2 gm/dl (14.0-18.0) 11/26/21 18:31 ABG Carboxyhemoglobin 1.6 % (0.0-5.0) 11/26/21 18:31 ABG Methemoglobin 0.7 % (0.0-1.5) 11/26/21 18:31 Oxyhemoglobin 95.9 % (95.0-99.0) 11/26/21 18:31 FiO2 28 % 11/26/21 18:31 Sodium 137 mmol/L (137-145) 12/03/21 05:38 Potassium 3.4 mmol/L (3.6-5.0) L 12/03/21 05:38 Chloride 101.8 mmol/L (98-107) 12/03/21 05:38 Carbon Dioxide 25 mmol/L (22-30) 12/03/21 05:38 Anion Gap 14 mmol/L 12/03/21 05:38 BUN 8 mg/dL (9-20) L 12/03/21 05:38 Creatinine 0.4 mg/dL (0.8-1.3) L 12/03/21 05:38 Estimated GFR > 60 ml/min 12/03/21 05:38 BUN/Creatinine Ratio 20 % 12/03/21 05:38 Glucose 85 mg/dL (75-100) 12/03/21 05:38 POC Glucose 111 mg/dL (70-105) H 11/29/21 16:10 Ketones Quantitative Negative (Negative) 11/26/21 16:24 Osmolality 243 Mosm/kg 11/27/21 11:09 Lactic Acid 4.70 mmol/L (0.7-2.0) H* 11/26/21 21:02 Calcium 8.4 mg/dL (8.4-10.2) 12/03/21 05:38 Phosphorus 3.20 mg/dL (2.5-4.5) 11/28/21 05:04 Magnesium 1.90 mg/dL (1.7-2.3) 11/28/21 05:04 Total Bilirubin 1.80 mg/dL (0.1-1.2) H 11/30/21 05:02 Direct Bilirubin 1.5 mg/dL (0-0.2) H 11/29/21 02:06 Indirect Bilirubin 1.0 mg/dL 11/29/21 02:06 AST 153 units/L (5-40) H 11/30/21 05:02 ALT 49 units/L (7-56) 11/30/21 05:02 Alkaline Phosphatase 201 units/L (35-129) H 11/30/21 05:02 Ammonia 59.0 umol/L (25-60) 11/26/21 18:51 NT-Pro-B Natriuret Pep 1043 pg/mL (0-450) H 11/26/21 16:24 Total Protein 6.7 g/dL (6.3-8.2) 11/30/21 05:02 Albumin 2.8 g/dL (3.9-5) L 11/30/21 05:02 Albumin/Globulin Ratio 0.7 % 11/30/21 05:02 Lipase 78 units/L (13-60) H 11/26/21 16:24 TSH 3.910 mlU/mL (0.270-4.200) 11/26/21 18:44 Free T4 1.46 ng/dL (0.76-1.46) 11/26/21 18:44 Urine Color Marquita (Yellow) 11/26/21 11:00 Urine Turbidity Clear (Clear) 11/26/21 11:00 Urine pH 6.0 (5.0-7.0) 11/26/21 11:00 Ur Specific [place] 1.021 (1.003-1.030) 11/26/21 11:00 Urine Protein <15 mg/dl mg/dL (Negative) 11/26/21 11:00 Urine Glucose (UA) Neg mg/dL (Negative) 11/26/21 11:00 Urine Ketones Tr mg/dL (Negative) 11/26/21 11:00 Urine Blood Neg (Negative) 11/26/21 11:00 Urine Nitrite Neg (Negative) 11/26/21 11:00 Urine Bilirubin Neg (Negative) 11/26/21 11:00 Urine Urobilinogen 4.0 mg/dL (<2.0) 11/26/21 11:00 Ur Leukocyte Esterase Neg (Negative) 11/26/21 11:00 Urine WBC (Auto) 1.0 /HPF (0.0-6.0) 11/26/21 11:00 Urine RBC (Auto) < 1.0 /HPF (0.0-6.0) 11/26/21 11:00 U Epithel Cells (Auto) < 1.0 /HPF (0-13.0) 11/26/21 11:00 Urine Osmolality 404 Mosm/kg 11/27/21 11:00 Urine Sodium 10 mmol/L 11/27/21 11:00 Plasma/Serum Alcohol 0.04 % (0-0.07) 11/26/21 18:44 Coronavirus (PCR) Negative (Negative) 11/27/21 11:00 Hepatitis A IgM Ab Nonreactive (NonReactive) 11/28/21 13:34 Hep Bs Antigen Nonreactive (Negative) 11/28/21 13:34 Hep B Core IgM Ab Non-reactive (NonReactive) 11/28/21 13:34 Hepatitis C Antibody Nonreactive (NonReactive) 11/28/21 13:34 Reeves/IV: Voiding Method Indwelling Catheter Active Medications - Current Medications Current Medications: Generic Name Dose Route Start Last Admin Trade Name Freq PRN Reason Stop Dose Admin Acetaminophen 650 mg 11/26/21 21:59 11/30/21 21:06 Acetaminophen 325 Mg Tab PO 650 mg Q4H PRN Administration Pain MILD(1-3)/Fever >100.5/OAKES Famotidine 40 mg 11/29/21 22:00 12/02/21 22:14 Famotidine 20 Mg Tab PO 40 mg QHS INDERJIT Administration Folic Acid 1 mg 11/30/21 10:00 12/02/21 09:39 Folic Acid 1 Mg Tab PO 1 mg QDAY INDERJIT Administration Furosemide 20 mg 11/27/21 18:00 12/03/21 06:24 Furosemide 20 Mg/2 Ml Inj IV 20 mg 0600,1800 INDERJIT Administration Heparin Sodium (Porcine) 5,000 unit 11/27/21 22:00 12/02/21 22:14 Heparin 5,000 Unit/1 Ml Vial SUB-Q 5,000 unit Q12HR INDERJIT Administration Lorazepam 2 mg 11/26/21 22:45 11/27/21 03:06 Lorazepam 2 Mg/Ml Vial IV 2 mg Q4H PRN Administration Alcohol Withdrawal Morphine Sulfate 2 mg 11/26/21 21:59 Morphine 2 Mg/1 Ml Inj IV Q4H PRN Pain, Moderate (4-6) Morphine Sulfate 4 mg 11/26/21 21:59 Morphine 4 Mg/1 Ml Inj IV Q4H PRN Pain , Severe (7-10) Multivitamins 1 each 11/30/21 10:00 12/02/21 09:39 Multivitamins ,Therapeutic Tab PO 1 each QDAY INDERJIT Administration Ondansetron HCl 4 mg 11/26/21 21:59 Ondansetron 4 Mg/2 Ml Inj IV Q8H PRN Nausea And Vomiting Sodium Chloride 10 ml 11/26/21 22:00 12/02/21 22:14 Sodium Chloride 0.9% 10 Ml Flush Syringe IV 10 ml BID INDERJIT Administration Sodium Chloride 10 ml 11/26/21 21:59 Sodium Chloride 0.9% 10 Ml Flush Syringe IV PRN PRN LINE FLUSH Thiamine HCl 100 mg 11/30/21 10:00 12/02/21 09:39 Thiamine 100 Mg Tab PO 100 mg QDAY INDERJIT Administration Nutrition/Malnutrition Assess - Dietary Evaluation Nutrition/Malnutrition Findings: Nutrition Notes Start: 11/27/21 18:57 Freq: Status: Active Protocol: Document 11/30/21 12:25 LYN (Rec: 11/30/21 12:36 LYN [id number]) Nutrition Notes Initial or Follow up Brief Note Other Pertinent Diagnosis Metabolic Encephalopathy, Steatohepatitis, Hyponatremia, EtOH Abuse, ... Current Diet Regular Diet (since D 11/29). Height 5 ft 4 in Weight 104 kg [place] Body Weight (kg) 59.09 BMI 39.3 Weight change and time frame No body weight change reported in 2 days. Weight Status Obese Subjective/Other Information RD consult for routine F/U on dietary advancement. Diet advanced to PO, but no reports available on Pt's PO intake of meals at the time, will assess at F/U. Pt is on Room Air, O2 saturation @ 96%, according to Vital Signs. Percent of energy/protein needs met: Prescribed Regular Diet provides for energy/protein needs (2,289 Kcal/89 g) during LOS. Is patient on ventilator? No Is Patient Ambulatory and/or Out of Bed Yes REE-([facility]-ambulatory/OOB) [ 2451.800 NUTR.MSJOOB] Kcal/Kg value to use for calculation 14 Approximate Energy Requirements Using 1456 kcal/Kg Calculation Used for Recommendations Kcal/kg Additional Notes Protein: 0.8-1 g/Kg AdjBW; 66- 82 g/day. Fluids: 1 ml/Kcal, or as per MD. Nutrition Intervention Change Diet Order: Continue Regular Diet. Follow-Up By: 12/06/21 Additional Comments Continue monitoring food tolerance, %PO intake of meals , and BM.
[2021-11-29] MEDS ORDERED: POTASSIUM CHLORIDE ER 20 MEQ TAB PO ONE (17:30)
[2021-11-29 18:52] LABS: Blood Urea Nitrogen 8 mg/dL (9-20); Calcium 7.9 mg/dL (8.4-10.2); Hemolysis Index 35
[2021-11-29 19:03] LABS: BUN/Creatinine Ratio 13
[2021-11-29] MEDS ORDERED: DEXTROSE 5% IN WATER 500 ML IV SCH (20:00)
[2021-11-29] MEDS: FAMOTIDINE 20 MG TAB PO SCH (21:52)
[2021-11-29] MEDS ORDERED: FAMOTIDINE 20 MG/2 ML INJ IV SCH (22:00)
[2021-11-29 23:49] LABS: Blood Urea Nitrogen 7 mg/dL (9-20); Calcium 8.3 mg/dL (8.4-10.2); Hemolysis Index 3
[2021-11-30 00:19] LABS: BUN/Creatinine Ratio 12
[2021-11-30] MEDS ORDERED: DEXTROSE 5% IN WATER 1,000 ML IV ONE ×2 (01:14→01:41)
[2021-11-30 02:37] LABS: Blood Urea Nitrogen 6 mg/dL (9-20); Hemolysis Index 6
[2021-11-30 02:39] LABS: BUN/Creatinine Ratio 10
[2021-11-30] MEDS: DEXTROSE 5% IN WATER 1,000 ML IV SCH ×2 (03:55→18:03)
[2021-11-30] MEDS: FUROSEMIDE 20 MG/2 ML INJ IV SCH ×2 (06:00→18:04)
[2021-11-30 06:28] LABS: Alanine Aminotransferase 49 units/L (7-56); Albumin 2.8 g/dL (3.9-5); Blood Urea Nitrogen 5 mg/dL (9-20); Calcium 7.9 mg/dL (8.4-10.2); Hemolysis Index 15
[2021-11-30 06:36] LABS: BUN/Creatinine Ratio 10
[2021-11-30] MEDS ORDERED: POTASSIUM CHLORIDE ER 20 MEQ TAB PO ONE (07:58)
--- NOTE | 2021-11-30 08:17 | Progress Note ---
Assessment and Plan Assessment and plan: History Interval history: This is a 36 year old male with EtOH abuse who presented to the ED on 11/26 with complaints of diaphoresis, generalized abdominal swelling, leg edema and shortness of breath with worsening symptoms over the past 5 days via EMS. Last reported alcohol intake was 11/25 per ED documentation. In the ED patient was placed on supplemental oxygen and repositioned with improvement in diaphoresis and respiratory distress. Workup in the ED showed groundglass opacities suggestive of edema versus infiltrate on CXR, severe hyponatermia, severe hypochloremia, lactic acidosis, leukocytosis and nephrology was consulted. CT head showed no acute abnormalityand both CTA chest and CT abdomen/pelvis showed diffuse groundglass airspace opacities, hepatic cirrhosis and generalized anasarca. He was given hypertonic saline at 25mL/hr and BMP ordered every 4 hours. Patient was admitted to the hospitalist service with consult to [facility] and a dish maker as a COVID-19 PUI, severe hyponatremia. Hospital course to date: 11/27: Obtain abd US, echo, continue BMP q 4 hoyrs, DHT placed. Continue neuro checks q2, COVID PCR (-), obtain urine sodium and osmo, possible diagnostic paracentisis tomorrow. 11/28:Improvement noted to sodium, yesterday evening and overnight patient received 1500 mL D5W, DDAVP x2. Lasix was withheld. We will continue to track BMPs every 4 hours. 11/29: Sodium continues to rise, continue diuresis. Patient will be transferred to the floor. 11/30: Sodium 126->131. hypotonic fliud orders noted overnight from nephrology. Sodium at 7 am: 129. Will continue to follow nephrology guidance for fluid management and sodium monitoring. K=3.1, replaced this AM. hepatic indicies impoving with AST, bilirubin downtrending. Assessment and plan: Neuro: Acute metabolic encephalopathy, h/o EtOH abuse -[facility] protocol -s/p Precedex drip -CT head shows no acute abnormalities -Reorientation as needed -Maintain sleep-wake cycle -As needed analgesia -Admit serum alcohol 0.04 -Thiamine, folic acid -Neurochecks every 2 Cardiac: NAD -Cardiology consulted, appreciate recommendations -Blood pressure monitoring per protocol -Echocardiogram shows LVEF 50 to 55%, impaired LV relaxation, RVSP 33 mmHg, moderate TR -Admit proBNP 1043 Respiratory: Acute hypoxic respiratory failure (resolved) -CCM consulted, appreciate recommendations -Currently on room air -Wean supplemental oxygen as tolerated -Pulmonary hygiene -SPO2 monitoring GI: #Alcoholic steatohepatitis, #fatty liver disease -regular diet -Abdominal ultrasound showed hepatic steatosis without abdominal ascites -Trend LFTs, liver function -Alcohol cessation counseling + 15 mins #Morbid obesity - BMI: 39.4 - Counseled patient on the importance of weight loss, incorporating exercise, and dietary changes (lean meats, fresh fruits and vegetables, and water intake). Patient expresses understanding. - Time: +15 min : #Severe hyponatremia (improving) possibly secondary to Beer Potomania, #hypochloremia, #hypokalemia #urinary retention -Nephrology consulted, appreciate recommendations -Per Nephro; likely Beer Potomania given hx -Continue every 4 hr BMPs -Continue diuresis per nephrology -S/p DDAVP x2, 1500 mL D5W overnight 11/27-11/28 -Strict intake and output -Renally dose medications -Avoid nephrotoxic medications -Urine osmolality 404, urine sodium 10, serum osmo 243 -Lasix twice daily per nephrology -S/p hypertonic saline -Replete K ID: COVID-19 PUI, lactic acidosis (resolved) -COVID-19 PCR negative -11/26 BC/UC NGTD -Monitor WBC and temperature curve Endo: NAD -Avoid hypoglycemia Heme: Leukocytosis (resolved) -Trend CBC -heparin subq -SCDs to BLE while in bed History Interval history: No acute complaints this AM. Resting comfortably on bedside encounter. Hospitalist Physical - Physical exam Narrative exam: Physical Exam: VITAL SIGNS: Reviewed. GENERAL: The patient appears normally developed, Vital signs as documented. morbid obesity HEAD: No signs of head trauma. EYES: Pupils are equal. Extraocular motions intact. EARS: Hearing grossly intact. MOUTH: Oropharynx is normal. NECK: No adenopathy, no JVD. CHEST: Chest with clear breath sounds bilaterally. No wheezes, rales, or rhonchi. CARDIAC: Regular rate and rhythm. S1 and S2, without murmurs, gallops, or rubs. VASCULAR: No Edema. Peripheral pulses normal and equal in all extremities. ABDOMEN: distended, non tender, soft.. No rebound or guarding, and no masses palpated. Bowel Sounds normal. MUSCULOSKELETAL: Good range of motion of all major joints. Extremities without clubbing, cyanosis or edema. NEUROLOGIC EXAM: Alert and oriented x 4. no focal sensory or strength deficits. PSYCHIATRIC: Mood normal. SKIN: detail exam as documented in skin assessment - Constitutional Vitals: Temp Pulse Resp BP Pulse Ox 98.2 F 98 H 18 142/77 96 11/30/21 06:04 11/30/21 06:04 11/30/21 06:04 11/30/21 06:04 11/30/21 06:04 General appearance: Present: no acute distress Results - Labs CBC & Chem 7: 11/28/21 05:04 11/30/21 05:02 Labs: Laboratory Last Values WBC 6.2 K/mm3 (4.5-11.0) 11/28/21 05:04 RBC 3.44 M/mm3 (3.65-5.03) L 11/28/21 05:04 Hgb 11.8 gm/dl (11.8-15.2) 11/28/21 05:04 Hct 34.1 % (35.5-45.6) L D 11/28/21 05:04 MCV 99 fl (84-94) H 11/28/21 05:04 MCH 34 pg (28-32) H 11/28/21 05:04 MCHC 35 % (32-34) H 11/28/21 05:04 RDW 14.2 % (13.2-15.2) 11/28/21 05:04 Plt Count 145 K/mm3 (140-440) 11/28/21 05:04 Lymph % (Auto) 12.1 % (13.4-35.0) L 11/27/21 02:03 [place] % (Auto) 12.8 % (0.0-7.3) H 11/27/21 02:03 Eos % (Auto) 0.2 % (0.0-4.3) 11/27/21 02:03 Baso % (Auto) 0.5 % (0.0-1.8) 11/27/21 02:03 Lymph # (Auto) 1.9 K/mm3 (1.2-5.4) 11/27/21 02:03 [place] # (Auto) 2.0 K/mm3 (0.0-0.8) H 11/27/21 02:03 Eos # (Auto) 0.0 K/mm3 (0.0-0.4) 11/27/21 02:03 Baso # (Auto) 0.1 K/mm3 (0.0-0.1) 11/27/21 02:03 Seg Neutrophils % 74.4 % (40.0-70.0) H 11/27/21 02:03 Seg Neutrophils # 11.5 K/mm3 (1.8-7.7) H 11/27/21 02:03 PT 16.2 Sec. (12.2-14.9) H 11/26/21 16:24 INR 1.16 (0.87-1.13) H 11/26/21 16:24 APTT 38.3 Sec. (24.2-36.6) H 11/26/21 16:24 ABG pH 7.393 pH Units (7.350-7.450) 11/26/21 18:31 ABG pCO2 19.1 mm Hg 11/26/21 18:31 ABG pO2 110.8 mm Hg (80.0-90.0) H 11/26/21 18:31 ABG HCO3 11.4 mmol/L (20.0-26.0) L 11/26/21 18:31 ABG O2 Saturation 98.1 % (95.0-99.0) 11/26/21 18:31 ABG O2 Content 20.6 (0.0-44) 11/26/21 18:31 ABG Base Excess -10.7 mmol/L (-2.0-3.0) L 11/26/21 18:31 ABG Hemoglobin 15.2 gm/dl (14.0-18.0) 11/26/21 18:31 ABG Carboxyhemoglobin 1.6 % (0.0-5.0) 11/26/21 18:31 ABG Methemoglobin 0.7 % (0.0-1.5) 11/26/21 18:31 Oxyhemoglobin 95.9 % (95.0-99.0) 11/26/21 18:31 FiO2 28 % 11/26/21 18:31 Sodium 129 mmol/L (137-145) L 11/30/21 05:02 Potassium 3.1 mmol/L (3.6-5.0) L 11/30/21 05:02 Chloride 94.8 mmol/L (98-107) L 11/30/21 05:02 Carbon Dioxide 25 mmol/L (22-30) 11/30/21 05:02 Anion Gap 12 mmol/L 11/30/21 05:02 BUN 5 mg/dL (9-20) L 11/30/21 05:02 Creatinine 0.5 mg/dL (0.8-1.3) L 11/30/21 05:02 Estimated GFR > 60 ml/min 11/30/21 05:02 BUN/Creatinine Ratio 10 % 11/30/21 05:02 Glucose 81 mg/dL (75-100) 11/30/21 05:02 POC Glucose 111 mg/dL (70-105) H 11/29/21 16:10 Ketones Quantitative Negative (Negative) 11/26/21 16:24 Osmolality 243 Mosm/kg 11/27/21 11:09 Lactic Acid 4.70 mmol/L (0.7-2.0) H* 11/26/21 21:02 Calcium 7.9 mg/dL (8.4-10.2) L 11/30/21 05:02 Phosphorus 3.20 mg/dL (2.5-4.5) 11/28/21 05:04 Magnesium 1.90 mg/dL (1.7-2.3) 11/28/21 05:04 Total Bilirubin 1.80 mg/dL (0.1-1.2) H 11/30/21 05:02 Direct Bilirubin 1.5 mg/dL (0-0.2) H 11/29/21 02:06 Indirect Bilirubin 1.0 mg/dL 11/29/21 02:06 AST 153 units/L (5-40) H 11/30/21 05:02 ALT 49 units/L (7-56) 11/30/21 05:02 Alkaline Phosphatase 201 units/L (35-129) H 11/30/21 05:02 Ammonia 59.0 umol/L (25-60) 11/26/21 18:51 NT-Pro-B Natriuret Pep 1043 pg/mL (0-450) H 11/26/21 16:24 Total Protein 6.7 g/dL (6.3-8.2) 11/30/21 05:02 Albumin 2.8 g/dL (3.9-5) L 11/30/21 05:02 Albumin/Globulin Ratio 0.7 % 11/30/21 05:02 Lipase 78 units/L (13-60) H 11/26/21 16:24 TSH 3.910 mlU/mL (0.270-4.200) 11/26/21 18:44 Free T4 1.46 ng/dL (0.76-1.46) 11/26/21 18:44 Urine Color [place] (Yellow) 11/26/21 11:00 Urine Turbidity Clear (Clear) 11/26/21 11:00 Urine pH 6.0 (5.0-7.0) 11/26/21 11:00 Ur Specific [place] 1.021 (1.003-1.030) 11/26/21 11:00 Urine Protein <15 mg/dl mg/dL (Negative) 11/26/21 11:00 Urine Glucose (UA) Neg mg/dL (Negative) 11/26/21 11:00 Urine Ketones Tr mg/dL (Negative) 11/26/21 11:00 Urine Blood Neg (Negative) 11/26/21 11:00 Urine Nitrite Neg (Negative) 11/26/21 11:00 Urine Bilirubin Neg (Negative) 11/26/21 11:00 Urine Urobilinogen 4.0 mg/dL (<2.0) 11/26/21 11:00 Ur Leukocyte Esterase Neg (Negative) 11/26/21 11:00 Urine WBC (Auto) 1.0 /HPF (0.0-6.0) 11/26/21 11:00 Urine RBC (Auto) < 1.0 /HPF (0.0-6.0) 11/26/21 11:00 U Epithel Cells (Auto) < 1.0 /HPF (0-13.0) 11/26/21 11:00 Urine Osmolality 404 Mosm/kg 11/27/21 11:00 Urine Sodium 10 mmol/L 11/27/21 11:00 Plasma/Serum Alcohol 0.04 % (0-0.07) 11/26/21 18:44 Coronavirus (PCR) Negative (Negative) 11/27/21 11:00 Hepatitis A IgM Ab Nonreactive (NonReactive) 11/28/21 13:34 Hep Bs Antigen Nonreactive (Negative) 11/28/21 13:34 Hep B Core IgM Ab Non-reactive (NonReactive) 11/28/21 13:34 Hepatitis C Antibody Nonreactive (NonReactive) 11/28/21 13:34 Microbiology: Microbiology 11/26/21 21:02 Peripheral/Venous Blood Culture - Preliminary NO GROWTH AFTER 72 HOURS 11/26/21 21:02 Peripheral/Venous Blood Culture - Preliminary NO GROWTH AFTER 72 HOURS 11/26/21 18:34 Urine,Clean Catch Urine Culture - Preliminary NO GROWTH AFTER 24 HOURS Reeves/IV: Voiding Method Indwelling Catheter Active Medications - Current Medications Current Medications: Generic Name Dose Route Start Last Admin Trade Name Freq PRN Reason Stop Dose Admin Acetaminophen 650 mg 11/26/21 21:59 Acetaminophen 325 Mg Tab PO Q4H PRN Pain MILD(1-3)/Fever >100.5/OAKES Famotidine 40 mg 11/29/21 22:00 11/29/21 21:52 Famotidine 20 Mg Tab PO 40 mg QHS INDERJIT Administration Folic Acid 1 mg 11/30/21 10:00 Folic Acid 1 Mg Tab PO QDAY INDERJIT Furosemide 20 mg 11/27/21 18:00 11/30/21 06:00 Furosemide 20 Mg/2 Ml Inj IV 20 mg 0600,1800 INDERJIT Administration Heparin Sodium (Porcine) 5,000 unit 11/27/21 22:00 11/29/21 21:21 Heparin 5,000 Unit/1 Ml Vial SUB-Q 5,000 unit Q12HR INDERJIT Administration Dextrose 1,000 mls @ 100 mls/hr 11/30/21 02:51 11/30/21 03:55 D5w IV 100 mls/hr DIRECT INDERJIT Administration Lorazepam 2 mg 11/26/21 22:45 11/27/21 03:06 Lorazepam 2 Mg/Ml Vial IV 2 mg Q4H PRN Administration Alcohol Withdrawal Morphine Sulfate 2 mg 11/26/21 21:59 Morphine 2 Mg/1 Ml Inj IV Q4H PRN Pain, Moderate (4-6) Morphine Sulfate 4 mg 11/26/21 21:59 Morphine 4 Mg/1 Ml Inj IV Q4H PRN Pain , Severe (7-10) Multivitamins 1 each 11/30/21 10:00 Multivitamins ,Therapeutic Tab PO QDAY INDERJIT Ondansetron HCl 4 mg 11/26/21 21:59 Ondansetron 4 Mg/2 Ml Inj IV Q8H PRN Nausea And Vomiting Sodium Chloride 10 ml 11/26/21 22:00 11/29/21 21:40 Sodium Chloride 0.9% 10 Ml Flush Syringe IV Not Given BID INDERJIT Sodium Chloride 10 ml 11/26/21 21:59 Sodium Chloride 0.9% 10 Ml Flush Syringe IV PRN PRN LINE FLUSH Thiamine HCl 100 mg 11/30/21 10:00 Thiamine 100 Mg Tab PO QDAY [facility] Nutrition/Malnutrition Assess - Dietary Evaluation Nutrition/Malnutrition Findings: Nutrition Notes Start: 11/27/21 18:57 Freq: Status: Active Protocol: Document 11/28/21 17:12 LYN (Rec: 11/28/21 17:24 LYN [id number]) Nutrition Notes 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 Current Diet NPO (since 11/27 11:01). 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 0.326 Kg body weight loss in 1 day reported. Weight Status Morbidly Obese Subjective/Other Information RD consult for risk of malnutrition assessment. Pt continues on NPO. Pt is on Room Air, O2 saturation @ 99%, according to Vital Signs. Pt shows no signs of concern for risk of malnutrition at the time, according to Physical Assessment History notes. Percent of energy/protein needs met: Pt currently on NPO. Is patient on ventilator? No Is Patient Ambulatory and/or Out of Bed Yes REE-([facility]-ambulatory/OOB) [ 9011.800 NUTR.[id number]] Kcal/Kg value to use for calculation 14 Approximate Energy Requirements Using 1456 kcal/Kg Calculation Used for Recommendations Kcal/kg Additional Notes Protein: 0.8-1 g/Kg AdjBW; 66- 82 g/day. Fluids: 1 ml/Kcal, or as per MD. Nutrition Intervention Follow-Up By: 11/30/21 Additional Comments When pertinent, start monitoring food tolerance, %PO intake of meals, and BM.
[2021-11-30] MEDS: FOLIC ACID 1 MG TAB PO SCH (09:47)
[2021-11-30] MEDS: MULTIVITAMINS ,THERAPEUTIC TAB PO SCH (09:47)
[2021-11-30] MEDS: THIAMINE 100 MG TAB PO SCH (09:47)
[2021-11-30] MEDS: HEPARIN 5,000 UNIT/1 ML VIAL SUB-Q SCH ×2 (09:48→21:07)
--- NOTE | 2021-11-30 09:49 | Progress Note ---
Assessment and Plan Hyponatremia likely Hypervolemic, also since have history of Alcohol Abuse could have Beer Potomania Questionable Alcohol withdrawal Anasarca Pneumonia Acidosis Plan: Na improving On D5W to slow overcorrection, dec to 50 mls/hr now cont current management for hyponatremia with fluid restriction and diuretics. no indication for 3% saline Goal correction is 4-6 mmol in 24 hours not exceeding 8 mmol in 24 hours Neuro checks every 4 hours ordered. Checking BMP every 4 hours Ordered for nurse to please call our on-call motor vehicle inspector with sodium levels results Monitor I//O's Obtain daily weights Monitor sodium levels closely Subjective Date of service: 11/30/21 Principal diagnosis: hyponatremia Interval history: Making urine. NAD. Objective - Exam Narrative Exam: General appearance: Present: mild distress - EENT Eyes: Present: PERRL ENT: hearing intact, clear oral mucosa - Neck Neck: Present: supple, normal ROM - Respiratory Respiratory effort: normal Respiratory: bilateral: diminished - Cardiovascular Heart Sounds: Present: S1 & S2. Absent: rub, click - Extremities Extremities: pulses symmetrical Extremity abnormal: edema Peripheral Pulses: within normal limits - Abdominal General gastrointestinal: Present: soft, non-tender, non-distended, normal bowel sounds Male genitourinary: Present: normal - Integumentary Integumentary: Present: clear, warm, dry - Musculoskeletal Musculoskeletal: gait normal, strength equal bilaterally - Psychiatric Psychiatric: appropriate mood/affect, intact judgment & insight - Neurologic Neurologic: CNII-XII intact, moves all extremities - Vital Signs Vital signs: Vital Signs - 12hr 11/30/21 11/30/21 00:00 06:04 Temperature 98.2 F Pulse Rate 98 H Respiratory 18 Rate Blood Pressure 142/77 [Right] O2 Sat by Pulse 98 96 Oximetry - Lab 11/28/21 05:04 11/30/21 05:02 Most recent lab results ABG pH 7.393 pH Units (7.350-7.450) 11/26/21 18:31 ABG pCO2 19.1 mm Hg 11/26/21 18:31 ABG pO2 110.8 mm Hg (80.0-90.0) H 11/26/21 18:31 ABG HCO3 11.4 mmol/L (20.0-26.0) L 11/26/21 18:31 ABG O2 Saturation 98.1 % (95.0-99.0) 11/26/21 18:31 Calcium 7.9 mg/dL (8.4-10.2) L 11/30/21 05:02 Phosphorus 3.20 mg/dL (2.5-4.5) 11/28/21 05:04 Magnesium 1.90 mg/dL (1.7-2.3) 11/28/21 05:04 Urine Sodium 10 mmol/L 11/27/21 11:00 Medications & Allergies - Medications Allergies/Adverse Reactions: Allergies No Known Allergies Allergy (Verified 11/26/21 18:35) Home Medications: Home Medications Medication Instructions Recorded Confirmed Last Taken Type No Known Home Medications [No 11/28/21 11/28/21 Unknown History Reported Home Medications] Active Medications: Generic Name Dose Route Start Last Admin Trade Name Freq PRN Reason Stop Dose Admin Acetaminophen 650 mg 11/26/21 21:59 Acetaminophen 325 Mg Tab PO Q4H PRN Pain MILD(1-3)/Fever >100.5/O[place]ES Famotidine 40 mg 11/29/21 22:00 11/29/21 21:52 Famotidine 20 Mg Tab PO 40 mg QHS INDERJIT Administration Folic Acid 1 mg 11/30/21 10:00 11/30/21 09:47 Folic Acid 1 Mg Tab PO 1 mg QDAY INDERJIT Administration Furosemide 20 mg 11/27/21 18:00 11/30/21 06:00 Furosemide 20 Mg/2 Ml Inj IV 20 mg 0600,1800 INDERJIT Administration Heparin Sodium (Porcine) 5,000 unit 11/27/21 22:00 11/29/21 21:21 Heparin 5,000 Unit/1 Ml Vial SUB-Q 5,000 unit Q12HR INDERJIT Administration Dextrose 1,000 mls @ 100 mls/hr 11/30/21 02:51 11/30/21 03:55 D5w IV 100 mls/hr DIRECT INDERJIT Administration Lorazepam 2 mg 11/26/21 22:45 11/27/21 03:06 Lorazepam 2 Mg/Ml Vial IV 2 mg Q4H PRN Administration Alcohol Withdrawal Morphine Sulfate 2 mg 11/26/21 21:59 Morphine 2 Mg/1 Ml Inj IV Q4H PRN Pain, Moderate (4-6) Morphine Sulfate 4 mg 11/26/21 21:59 Morphine 4 Mg/1 Ml Inj IV Q4H PRN Pain , Severe (7-10) Multivitamins 1 each 11/30/21 10:00 11/30/21 09:47 Multivitamins ,Therapeutic Tab PO 1 each QDAY INDERJIT Administration Ondansetron HCl 4 mg 11/26/21 21:59 Ondansetron 4 Mg/2 Ml Inj IV Q8H PRN Nausea And Vomiting Sodium Chloride 10 ml 11/26/21 22:00 11/30/21 09:47 Sodium Chloride 0.9% 10 Ml Flush Syringe IV 10 ml BID INDERJIT Administration Sodium Chloride 10 ml 11/26/21 21:59 Sodium Chloride 0.9% 10 Ml Flush Syringe IV PRN PRN LINE FLUSH Thiamine HCl 100 mg 11/30/21 10:00 11/30/21 09:47 Thiamine 100 Mg Tab PO 100 mg QDAY INDERJIT Administration
[2021-11-30] MEDS ORDERED: MULTIVITAMIN / MINERAL ORAL LIQUID 15 ML PO SCH (10:00)
--- NOTE | 2021-11-30 10:27 | XRay Report ---
CHEST 1 VIEW 11/30/2021 10:03 AM INDICATION / CLINICAL INFORMATION: congestion. COMPARISON: 11/26/2021 FINDINGS: SUPPORT DEVICES: None. HEART / MEDIASTINUM: Stable. LUNGS / PLEURA: Redemonstrated patchy airspace opacities throughout the lungs. No pneumothorax. ADDITIONAL FINDINGS: No significant additional findings. IMPRESSION: 1. No significant change. Signer Name: Kyle Howard DO Signed: 11/30/2021 10:23 AM Workstation Name: [id number]
[2021-11-30] MEDS: FAMOTIDINE 20 MG TAB PO SCH (21:06)
[2021-12-01] MEDS: DEXTROSE 5% IN WATER 1,000 ML IV SCH (03:52)
[2021-12-01] MEDS: FUROSEMIDE 20 MG/2 ML INJ IV SCH (05:22)
--- NOTE | 2021-12-01 07:47 | Progress Note ---
Assessment and Plan Assessment and plan: History Interval history: This is a 36 year old male with EtOH abuse who presented to the ED on 11/26 with complaints of diaphoresis, generalized abdominal swelling, leg edema and shortness of breath with worsening symptoms over the past 5 days via EMS. Last reported alcohol intake was 11/25 per ED documentation. In the ED patient was placed on supplemental oxygen and repositioned with improvement in diaphoresis and respiratory distress. Workup in the ED showed groundglass opacities suggestive of edema versus infiltrate on CXR, severe hyponatermia, severe hypochloremia, lactic acidosis, leukocytosis and nephrology was consulted. CT head showed no acute abnormalityand both CTA chest and CT abdomen/pelvis showed diffuse groundglass airspace opacities, hepatic cirrhosis and generalized anasarca. He was given hypertonic saline at 25mL/hr and BMP ordered every 4 hours. Patient was admitted to the hospitalist service with consult to [facility] and a training director as a COVID-19 PUI, severe hyponatremia. Hospital course to date: 11/27: Obtain abd US, echo, continue BMP q 4 hoyrs, DHT placed. Continue neuro checks q2, COVID PCR (-), obtain urine sodium and osmo, possible diagnostic paracentisis tomorrow. 11/28:Improvement noted to sodium, yesterday evening and overnight patient received 1500 mL D5W, DDAVP x2. Lasix was withheld. We will continue to track BMPs every 4 hours. 11/29: Sodium continues to rise, continue diuresis. Patient will be transferred to the floor. 11/30: Sodium 126->131. hypotonic fliud orders noted overnight from nephrology. Sodium at 7 am: 129. Will continue to follow nephrology guidance for fluid management and sodium monitoring. K=3.1, replaced this AM. hepatic indicies impoving with AST, bilirubin downtrending. 12/01: continue trending sodium. Ordered BMP q4hr. Fluid management per nephrology. Plan for discharge in next 24-48hrs. Assessment and plan: Neuro: Acute metabolic encephalopathy, h/o EtOH abuse -[facility] protocol -s/p Precedex drip -CT head shows no acute abnormalities -Reorientation as needed -Maintain sleep-wake cycle -As needed analgesia -Admit serum alcohol 0.04 -Thiamine, folic acid -Neurochecks every 2 Cardiac: NAD -Cardiology consulted, appreciate recommendations -Blood pressure monitoring per protocol -Echocardiogram shows LVEF 50 to 55%, impaired LV relaxation, RVSP 33 mmHg, moderate TR -Admit proBNP 1043 Respiratory: Acute hypoxic respiratory failure (resolved) -CCM consulted, appreciate recommendations -Currently on room air -Wean supplemental oxygen as tolerated -Pulmonary hygiene -SPO2 monitoring GI: #Alcoholic steatohepatitis, #fatty liver disease -regular diet -Abdominal ultrasound showed hepatic steatosis without abdominal ascites -Trend LFTs, liver function -Alcohol cessation counseling + 15 mins #Morbid obesity - BMI: 39.4 - Counseled patient on the importance of weight loss, incorporating exercise, and dietary changes (lean meats, fresh fruits and vegetables, and water intake). Patient expresses understanding. - Time: +15 min : #Severe hyponatremia (improving) possibly secondary to Beer Potomania, #hypochloremia, #hypokalemia #urinary retention -Nephrology consulted, appreciate recommendations -Per Nephro; likely Beer Potomania given hx -Continue every 4 hr BMPs -Continue diuresis per nephrology -S/p DDAVP x2, 1500 mL D5W overnight 11/27-11/28 -Strict intake and output -Renally dose medications -Avoid nephrotoxic medications -Urine osmolality 404, urine sodium 10, serum osmo 243 -Lasix twice daily per nephrology -S/p hypertonic saline -Replete K ID: COVID-19 PUI, lactic acidosis (resolved) -COVID-19 PCR negative -11/26 /UC NGTD -Monitor WBC and temperature curve Endo: NAD -Avoid hypoglycemia Heme: Leukocytosis (resolved) -Trend CBC -heparin subq -SCDs to BLE while in bed History Interval history: No acute complaints this AM. Resting comfortably on bedside encounter. Hospitalist Physical - Physical exam Narrative exam: Physical Exam: VITAL SIGNS: Reviewed. GENERAL: The patient appears normally developed, Vital signs as documented. morbid obesity HEAD: No signs of head trauma. EYES: Pupils are equal. Extraocular motions intact. EARS: Hearing grossly intact. MOUTH: Oropharynx is normal. NECK: No adenopathy, no JVD. CHEST: Chest with clear breath sounds bilaterally. No wheezes, rales, or rhonchi. CARDIAC: Regular rate and rhythm. S1 and S2, without murmurs, gallops, or rubs. VASCULAR: No Edema. Peripheral pulses normal and equal in all extremities. ABDOMEN: distended, non tender, soft.. No rebound or guarding, and no masses palpated. Bowel Sounds normal. MUSCULOSKELETAL: Good range of motion of all major joints. Extremities without clubbing, cyanosis or edema. NEUROLOGIC EXAM: Alert and oriented x 4. no focal sensory or strength deficits. PSYCHIATRIC: Mood normal. SKIN: detail exam as documented in skin assessment - Constitutional Vitals: Temp Pulse Resp BP Pulse Ox 98.6 F 83 18 144/89 98 12/01/21 05:10 12/01/21 05:10 12/01/21 05:10 12/01/21 05:10 12/01/21 05:10 General appearance: Present: no acute distress Results - Labs CBC & Chem 7: 11/28/21 05:04 11/30/21 05:02 Labs: Laboratory Last Values WBC 6.2 K/mm3 (4.5-11.0) 11/28/21 05:04 RBC 3.44 M/mm3 (3.65-5.03) L 11/28/21 05:04 Hgb 11.8 gm/dl (11.8-15.2) 11/28/21 05:04 Hct 34.1 % (35.5-45.6) L D 11/28/21 05:04 MCV 99 fl (84-94) H 11/28/21 05:04 MCH 34 pg (28-32) H 11/28/21 05:04 MCHC 35 % (32-34) H 11/28/21 05:04 RDW 14.2 % (13.2-15.2) 11/28/21 05:04 Plt Count 145 K/mm3 (140-440) 11/28/21 05:04 Lymph % (Auto) 12.1 % (13.4-35.0) L 11/27/21 02:03 [place] % (Auto) 12.8 % (0.0-7.3) H 11/27/21 02:03 Eos % (Auto) 0.2 % (0.0-4.3) 11/27/21 02:03 Baso % (Auto) 0.5 % (0.0-1.8) 11/27/21 02:03 Lymph # (Auto) 1.9 K/mm3 (1.2-5.4) 11/27/21 02:03 [place] # (Auto) 2.0 K/mm3 (0.0-0.8) H 11/27/21 02:03 Eos # (Auto) 0.0 K/mm3 (0.0-0.4) 11/27/21 02:03 Baso # (Auto) 0.1 K/mm3 (0.0-0.1) 11/27/21 02:03 Seg Neutrophils % 74.4 % (40.0-70.0) H 11/27/21 02:03 Seg Neutrophils # 11.5 K/mm3 (1.8-7.7) H 11/27/21 02:03 PT 16.2 Sec. (12.2-14.9) H 11/26/21 16:24 INR 1.16 (0.87-1.13) H 11/26/21 16:24 APTT 38.3 Sec. (24.2-36.6) H 11/26/21 16:24 ABG pH 7.393 pH Units (7.350-7.450) 11/26/21 18:31 ABG pCO2 19.1 mm Hg 11/26/21 18:31 ABG pO2 110.8 mm Hg (80.0-90.0) H 11/26/21 18:31 ABG HCO3 11.4 mmol/L (20.0-26.0) L 11/26/21 18:31 ABG O2 Saturation 98.1 % (95.0-99.0) 11/26/21 18:31 ABG O2 Content 20.6 (0.0-44) 11/26/21 18:31 ABG Base Excess -10.7 mmol/L (-2.0-3.0) L 11/26/21 18:31 ABG Hemoglobin 15.2 gm/dl (14.0-18.0) 11/26/21 18:31 ABG Carboxyhemoglobin 1.6 % (0.0-5.0) 11/26/21 18:31 ABG Methemoglobin 0.7 % (0.0-1.5) 11/26/21 18:31 Oxyhemoglobin 95.9 % (95.0-99.0) 11/26/21 18:31 FiO2 28 % 11/26/21 18:31 Sodium 129 mmol/L (137-145) L 11/30/21 05:02 Potassium 3.1 mmol/L (3.6-5.0) L 11/30/21 05:02 Chloride 94.8 mmol/L (98-107) L 11/30/21 05:02 Carbon Dioxide 25 mmol/L (22-30) 11/30/21 05:02 Anion Gap 12 mmol/L 11/30/21 05:02 BUN 5 mg/dL (9-20) L 11/30/21 05:02 Creatinine 0.5 mg/dL (0.8-1.3) L 11/30/21 05:02 Estimated GFR > 60 ml/min 11/30/21 05:02 BUN/Creatinine Ratio 10 % 11/30/21 05:02 Glucose 81 mg/dL (75-100) 11/30/21 05:02 POC Glucose 111 mg/dL (70-105) H 11/29/21 16:10 Ketones Quantitative Negative (Negative) 11/26/21 16:24 Osmolality 243 Mosm/kg 11/27/21 11:09 Lactic Acid 4.70 mmol/L (0.7-2.0) H* 11/26/21 21:02 Calcium 7.9 mg/dL (8.4-10.2) L 11/30/21 05:02 Phosphorus 3.20 mg/dL (2.5-4.5) 11/28/21 05:04 Magnesium 1.90 mg/dL (1.7-2.3) 11/28/21 05:04 Total Bilirubin 1.80 mg/dL (0.1-1.2) H 11/30/21 05:02 Direct Bilirubin 1.5 mg/dL (0-0.2) H 11/29/21 02:06 Indirect Bilirubin 1.0 mg/dL 11/29/21 02:06 AST 153 units/L (5-40) H 11/30/21 05:02 ALT 49 units/L (7-56) 11/30/21 05:02 Alkaline Phosphatase 201 units/L (35-129) H 11/30/21 05:02 Ammonia 59.0 umol/L (25-60) 11/26/21 18:51 NT-Pro-B Natriuret Pep 1043 pg/mL (0-450) H 11/26/21 16:24 Total Protein 6.7 g/dL (6.3-8.2) 11/30/21 05:02 Albumin 2.8 g/dL (3.9-5) L 11/30/21 05:02 Albumin/Globulin Ratio 0.7 % 11/30/21 05:02 Lipase 78 units/L (13-60) H 11/26/21 16:24 TSH 3.910 mlU/mL (0.270-4.200) 11/26/21 18:44 Free T4 1.46 ng/dL (0.76-1.46) 11/26/21 18:44 Urine Color Marquita (Yellow) 11/26/21 11:00 Urine Turbidity Clear (Clear) 11/26/21 11:00 Urine pH 6.0 (5.0-7.0) 11/26/21 11:00 Ur Specific Elliott 1.021 (1.003-1.030) 11/26/21 11:00 Urine Protein <15 mg/dl mg/dL (Negative) 11/26/21 11:00 Urine Glucose (UA) Neg mg/dL (Negative) 11/26/21 11:00 Urine Ketones Tr mg/dL (Negative) 11/26/21 11:00 Urine Blood Neg (Negative) 11/26/21 11:00 Urine Nitrite Neg (Negative) 11/26/21 11:00 Urine Bilirubin Neg (Negative) 11/26/21 11:00 Urine Urobilinogen 4.0 mg/dL (<2.0) 11/26/21 11:00 Ur Leukocyte Esterase Neg (Negative) 11/26/21 11:00 Urine WBC (Auto) 1.0 /HPF (0.0-6.0) 11/26/21 11:00 Urine RBC (Auto) < 1.0 /HPF (0.0-6.0) 11/26/21 11:00 U Epithel Cells (Auto) < 1.0 /HPF (0-13.0) 11/26/21 11:00 Urine Osmolality 404 Mosm/kg 11/27/21 11:00 Urine Sodium 10 mmol/L 11/27/21 11:00 Plasma/Serum Alcohol 0.04 % (0-0.07) 11/26/21 18:44 Coronavirus (PCR) Negative (Negative) 11/27/21 11:00 Hepatitis A IgM Ab Nonreactive (NonReactive) 11/28/21 13:34 Hep Bs Antigen Nonreactive (Negative) 11/28/21 13:34 Hep B Core IgM Ab Non-reactive (NonReactive) 11/28/21 13:34 Hepatitis C Antibody Nonreactive (NonReactive) 11/28/21 13:34 Microbiology: Microbiology 11/26/21 21:02 Peripheral/Venous Blood Culture - Preliminary NO GROWTH AFTER 4 DAYS 11/26/21 21:02 Peripheral/Venous Blood Culture - Preliminary NO GROWTH AFTER 4 DAYS 11/26/21 18:34 Urine,Clean Catch Urine Culture - Final NO GROWTH AFTER 48 HOURS Reeves/IV: Voiding Method Indwelling Catheter Active Medications - Current Medications Current Medications: Generic Name Dose Route Start Last Admin Trade Name Freq PRN Reason Stop Dose Admin Acetaminophen 650 mg 11/26/21 21:59 11/30/21 21:06 Acetaminophen 325 Mg Tab PO 650 mg Q4H PRN Administration Pain MILD(1-3)/Fever >100.5/OAKES Famotidine 40 mg 11/29/21 22:00 11/30/21 21:06 Famotidine 20 Mg Tab PO 40 mg QHS INDERJIT Administration Folic Acid 1 mg 11/30/21 10:00 11/30/21 09:47 Folic Acid 1 Mg Tab PO 1 mg QDAY INDERJIT Administration Furosemide 20 mg 11/27/21 18:00 12/01/21 05:22 Furosemide 20 Mg/2 Ml Inj IV 20 mg 0600,1800 INDERJIT Administration Heparin Sodium (Porcine) 5,000 unit 11/27/21 22:00 11/30/21 21:07 Heparin 5,000 Unit/1 Ml Vial SUB-Q 5,000 unit Q12HR INDERJIT Administration Dextrose 1,000 mls @ 50 mls/hr 11/30/21 02:51 12/01/21 03:52 D5w IV 100 mls/hr DIRECT INDERJIT Administration Lorazepam 2 mg 11/26/21 22:45 11/27/21 03:06 Lorazepam 2 Mg/Ml Vial IV 2 mg Q4H PRN Administration Alcohol Withdrawal Morphine Sulfate 2 mg 11/26/21 21:59 Morphine 2 Mg/1 Ml Inj IV Q4H PRN Pain, Moderate (4-6) Morphine Sulfate 4 mg 11/26/21 21:59 Morphine 4 Mg/1 Ml Inj IV Q4H PRN Pain , Severe (7-10) Multivitamins 1 each 11/30/21 10:00 11/30/21 09:47 Multivitamins ,Therapeutic Tab PO 1 each QDAY INDERJIT Administration Ondansetron HCl 4 mg 11/26/21 21:59 Ondansetron 4 Mg/2 Ml Inj IV Q8H PRN Nausea And Vomiting Sodium Chloride 10 ml 11/26/21 22:00 11/30/21 21:07 Sodium Chloride 0.9% 10 Ml Flush Syringe IV 10 ml BID INDERJIT Administration Sodium Chloride 10 ml 11/26/21 21:59 Sodium Chloride 0.9% 10 Ml Flush Syringe IV PRN PRN LINE FLUSH Thiamine HCl 100 mg 11/30/21 10:00 11/30/21 09:47 Thiamine 100 Mg Tab PO 100 mg QDAY INDERJIT Administration Nutrition/Malnutrition Assess - Dietary Evaluation Nutrition/Malnutrition Findings: Nutrition Notes Start: 11/27/21 18:57 Freq: Status: Active Protocol: Document 11/30/21 12:25 LYN (Rec: 11/30/21 12:36 LYN [id number]) Nutrition Notes Initial or Follow up Brief Note Other Pertinent Diagnosis Metabolic Encephalopathy, Steatohepatitis, Hyponatremia, EtOH Abuse, ... Current Diet Regular Diet (since D 11/29). Height 5 ft 4 in Weight 104 kg Epps Body Weight (kg) 59.09 BMI 39.3 Weight change and time frame No body weight change reported in 2 days. Weight Status Obese Subjective/Other Information RD consult for routine F/U on dietary advancement. Diet advanced to PO, but no reports available on Pt's PO intake of meals at the time, will assess at F/U. Pt is on Room Air, O2 saturation @ 96%, according to Vital Signs. Percent of energy/protein needs met: Prescribed Regular Diet provides for energy/protein needs (2,289 Kcal/89 g) during LOS. Is patient on ventilator? No Is Patient Ambulatory and/or Out of Bed Yes REE-([place]-St. Jeor-ambulatory/OOB) [ 9331.800 NUTR.[id number]] Kcal/Kg value to use for calculation 14 Approximate Energy Requirements Using 1456 kcal/Kg Calculation Used for Recommendations Kcal/kg Additional Notes Protein: 0.8-1 g/Kg AdjBW; 66- 82 g/day. Fluids: 1 ml/Kcal, or as per MD. Nutrition Intervention Change Diet Order: Continue Regular Diet. Follow-Up By: 12/06/21 Additional Comments Continue monitoring food tolerance, %PO intake of meals , and BM.
[2021-12-01] MEDS: HEPARIN 5,000 UNIT/1 ML VIAL SUB-Q SCH ×2 (09:28→21:18)
[2021-12-01] MEDS: THIAMINE 100 MG TAB PO SCH (09:29)
[2021-12-01] MEDS: MULTIVITAMINS ,THERAPEUTIC TAB PO SCH (09:30)
[2021-12-01] MEDS: FOLIC ACID 1 MG TAB PO SCH (09:30)
--- NOTE | 2021-12-01 12:34 | Progress Note ---
Assessment and Plan Hyponatremia likely Hypervolemic, also since have history of Alcohol Abuse could have Beer Potomania Questionable Alcohol withdrawal Anasarca Pneumonia Acidosis Plan: Na improving On D5W to slow overcorrection, discontinue now cont current management for hyponatremia with fluid restriction and diuretics. no indication for 3% saline Goal correction is 4-6 mmol in 24 hours not exceeding 8 mmol in 24 hours Checking BMP daily now Ordered for nurse to please call our on-call acting instructor with sodium levels res ults Monitor I//O's Obtain daily weights Monitor sodium levels closely Subjective Date of service: 12/01/21 Principal diagnosis: hyponatremia Interval history: Making urine. NAD. Objective - Exam Narrative Exam: General appearance: Present: mild distress - EENT Eyes: Present: PERRL ENT: hearing intact, clear oral mucosa - Neck Neck: Present: supple, normal ROM - Respiratory Respiratory effort: normal Respiratory: bilateral: diminished - Cardiovascular Heart Sounds: Present: S1 & S2. Absent: rub, click - Extremities Extremities: pulses symmetrical Extremity abnormal: edema Peripheral Pulses: within normal limits - Abdominal General gastrointestinal: Present: soft, non-tender, non-distended, normal bowel sounds Male genitourinary: Present: normal - Integumentary Integumentary: Present: clear, warm, dry - Musculoskeletal Musculoskeletal: gait normal, strength equal bilaterally - Psychiatric Psychiatric: appropriate mood/affect, intact judgment & insight - Neurologic Neurologic: CNII-XII intact, moves all extremities - Vital Signs Vital signs: Vital Signs - 12hr 12/01/21 12/01/21 12/01/21 00:50 05:10 08:06 Temperature 98.6 F Pulse Rate 83 Respiratory 18 Rate Blood Pressure 144/89 O2 Sat by Pulse 98 98 100 Oximetry 12/01/21 12:02 Temperature 98.2 F Pulse Rate 95 H Respiratory 18 Rate Blood Pressure 143/89 O2 Sat by Pulse 98 Oximetry - Lab 11/28/21 05:04 12/01/21 14:38 Most recent lab results ABG pH 7.393 pH Units (7.350-7.450) 11/26/21 18:31 ABG pCO2 19.1 mm Hg 11/26/21 18:31 ABG pO2 110.8 mm Hg (80.0-90.0) H 11/26/21 18:31 ABG HCO3 11.4 mmol/L (20.0-26.0) L 11/26/21 18:31 ABG O2 Saturation 98.1 % (95.0-99.0) 11/26/21 18:31 Calcium 7.9 mg/dL (8.4-10.2) L 11/30/21 05:02 Phosphorus 3.20 mg/dL (2.5-4.5) 11/28/21 05:04 Magnesium 1.90 mg/dL (1.7-2.3) 11/28/21 05:04 Urine Sodium 10 mmol/L 11/27/21 11:00 Medications & Allergies - Medications Allergies/Adverse Reactions: Allergies No Known Allergies Allergy (Verified 11/26/21 18:35) Home Medications: Home Medications Medication Instructions Recorded Confirmed Last Taken Type No Known Home Medications [No 11/28/21 11/28/21 Unknown History Reported Home Medications] Active Medications: Generic Name Dose Route Start Last Admin Trade Name Freq PRN Reason Stop Dose Admin Acetaminophen 650 mg 11/26/21 21:59 11/30/21 21:06 Acetaminophen 325 Mg Tab PO 650 mg Q4H PRN Administration Pain MILD(1-3)/Fever >100.5/OAKES Famotidine 40 mg 11/29/21 22:00 11/30/21 21:06 Famotidine 20 Mg Tab PO 40 mg QHS INDERJIT Administration Folic Acid 1 mg 11/30/21 10:00 12/01/21 09:30 Folic Acid 1 Mg Tab PO 1 mg QDAY INDERJIT Administration Furosemide 20 mg 11/27/21 18:00 12/01/21 05:22 Furosemide 20 Mg/2 Ml Inj IV 20 mg 0600,1800 INDERJIT Administration Heparin Sodium (Porcine) 5,000 unit 11/27/21 22:00 12/01/21 09:28 Heparin 5,000 Unit/1 Ml Vial SUB-Q 5,000 unit Q12HR INDERJIT Administration Dextrose 1,000 mls @ 50 mls/hr 11/30/21 02:51 12/01/21 03:52 D5w IV 100 mls/hr DIRECT INDERJIT Administration Lorazepam 2 mg 11/26/21 22:45 11/27/21 03:06 Lorazepam 2 Mg/Ml Vial IV 2 mg Q4H PRN Administration Alcohol Withdrawal Morphine Sulfate 2 mg 11/26/21 21:59 Morphine 2 Mg/1 Ml Inj IV Q4H PRN Pain, Moderate (4-6) Morphine Sulfate 4 mg 11/26/21 21:59 Morphine 4 Mg/1 Ml Inj IV Q4H PRN Pain , Severe (7-10) Multivitamins 1 each 11/30/21 10:00 12/01/21 09:30 Multivitamins ,Therapeutic Tab PO 1 each QDAY INDERJIT Administration Ondansetron HCl 4 mg 11/26/21 21:59 Ondansetron 4 Mg/2 Ml Inj IV Q8H PRN Nausea And Vomiting Sodium Chloride 10 ml 11/26/21 22:00 12/01/21 09:31 Sodium Chloride 0.9% 10 Ml Flush Syringe IV 10 ml BID INDERJIT Administration Sodium Chloride 10 ml 11/26/21 21:59 Sodium Chloride 0.9% 10 Ml Flush Syringe IV PRN PRN LINE FLUSH Thiamine HCl 100 mg 11/30/21 10:00 12/01/21 09:29 Thiamine 100 Mg Tab PO 100 mg QDAY INDERJIT Administration
[2021-12-01 15:37] LABS: Blood Urea Nitrogen 7 mg/dL (9-20); Calcium 8.3 mg/dL (8.4-10.2); Hemolysis Index 7
[2021-12-01 16:01] LABS: BUN/Creatinine Ratio 12
[2021-12-01 20:23] LABS: Blood Urea Nitrogen 7 mg/dL (9-20); Calcium 8.4 mg/dL (8.4-10.2); Hemolysis Index 50
[2021-12-01 20:39] LABS: BUN/Creatinine Ratio 14
[2021-12-01] MEDS: FAMOTIDINE 20 MG TAB PO SCH (21:19)
[2021-12-02 00:37] LABS: Blood Urea Nitrogen 7 mg/dL (9-20); Calcium 8.4 mg/dL (8.4-10.2); Hemolysis Index 4
[2021-12-02 00:39] LABS: BUN/Creatinine Ratio 14
[2021-12-02] MEDS: FUROSEMIDE 20 MG/2 ML INJ IV SCH ×2 (05:32→19:52)
[2021-12-02 06:54] LABS: Blood Urea Nitrogen 7 mg/dL (9-20); Calcium 8.6 mg/dL (8.4-10.2); Hemolysis Index 9
[2021-12-02 06:58] LABS: BUN/Creatinine Ratio 14
[2021-12-02] MEDS: FOLIC ACID 1 MG TAB PO SCH (09:39)
[2021-12-02] MEDS: MULTIVITAMINS ,THERAPEUTIC TAB PO SCH (09:39)
[2021-12-02] MEDS: THIAMINE 100 MG TAB PO SCH (09:39)
[2021-12-02] MEDS: HEPARIN 5,000 UNIT/1 ML VIAL SUB-Q SCH ×2 (09:39→22:14)
--- NOTE | 2021-12-02 12:27 | Progress Note ---
Assessment and Plan Assessment: Hyponatremia likely Hypervolemic, also since have history of Alcohol Abuse could have Beer Potomania Questionable Alcohol withdrawal Anasarca Pneumonia Acidosis Plan: Recent serum sodium level is 136 today, prior was 132 Admission sodium level was 102. S/P 3% hypertonic saline treatment. S/P D5W for overcorrection Continue current management for hyponatremia with fluid restriction and diuretics Goal correction is not to exceed 8 mmol in 24 hours On neuro checks every 4 hours Nurse to please call our on-call wildlife control operator with sodium levels results Anarsarca- on low dose Lasix at 20 mg IV BID BMP in a.m Monitor I/O's. Intake-1720/ UOP-2800 (-1080) Obtain daily weights Monitor sodium levels closely Plan of care reviewed by Dr. Diaz Subjective Date of service: 12/02/21 Principal diagnosis: hyponatremia Interval history: Patient seen lying in bed. No family at bedside. Objective - Vital Signs Vital signs: Vital Signs - 12hr 12/02/21 12/02/21 05:30 11:32 Temperature 98.0 F 98.2 F Pulse Rate 81 85 Respiratory 18 18 Rate Blood Pressure 143/91 148/95 O2 Sat by Pulse 100 99 Oximetry - General Appearance General appearance: well-developed, appears stated age EENT: ATNC, PERRL Neck: no JVD, supple Respiratory: Present: Decreased Breath Sounds Cardiology: S1S2 Gastrointestinal: normoactive bowel sounds Integumentary: warm and dry Neurologic: other (Awake) Musculoskeletal: joint swelling - Lab 11/28/21 05:04 12/02/21 05:39 Most recent lab results ABG pH 7.393 pH Units (7.350-7.450) 11/26/21 18:31 ABG pCO2 19.1 mm Hg 11/26/21 18:31 ABG pO2 110.8 mm Hg (80.0-90.0) H 11/26/21 18:31 ABG HCO3 11.4 mmol/L (20.0-26.0) L 11/26/21 18:31 ABG O2 Saturation 98.1 % (95.0-99.0) 11/26/21 18:31 Calcium 8.6 mg/dL (8.4-10.2) 12/02/21 05:39 Phosphorus 3.20 mg/dL (2.5-4.5) 11/28/21 05:04 Magnesium 1.90 mg/dL (1.7-2.3) 11/28/21 05:04 Urine Sodium 10 mmol/L 11/27/21 11:00 Medications & Allergies - Medications Allergies/Adverse Reactions: Allergies No Known Allergies Allergy (Verified 11/26/21 18:35) Home Medications: Home Medications Medication Instructions Recorded Confirmed Last Taken Type No Known Home Medications [No 11/28/21 11/28/21 Unknown History Reported Home Medications] Active Medications: Generic Name Dose Route Start Last Admin Trade Name Freq PRN Reason Stop Dose Admin Acetaminophen 650 mg 11/26/21 21:59 11/30/21 21:06 Acetaminophen 325 Mg Tab PO 650 mg Q4H PRN Administration Pain MILD(1-3)/Fever >100.5/OAKES Famotidine 40 mg 11/29/21 22:00 12/01/21 21:19 Famotidine 20 Mg Tab PO 40 mg QHS INDERJIT Administration Folic Acid 1 mg 11/30/21 10:00 12/02/21 09:39 Folic Acid 1 Mg Tab PO 1 mg QDAY INDERJIT Administration Furosemide 20 mg 11/27/21 18:00 12/02/21 05:32 Furosemide 20 Mg/2 Ml Inj IV 20 mg 0600,1800 INDERJIT Administration Heparin Sodium (Porcine) 5,000 unit 11/27/21 22:00 12/02/21 09:39 Heparin 5,000 Unit/1 Ml Vial SUB-Q 5,000 unit Q12HR INDERJIT Administration Lorazepam 2 mg 11/26/21 22:45 11/27/21 03:06 Lorazepam 2 Mg/Ml Vial IV 2 mg Q4H PRN Administration Alcohol Withdrawal Morphine Sulfate 2 mg 11/26/21 21:59 Morphine 2 Mg/1 Ml Inj IV Q4H PRN Pain, Moderate (4-6) Morphine Sulfate 4 mg 11/26/21 21:59 Morphine 4 Mg/1 Ml Inj IV Q4H PRN Pain , Severe (7-10) Multivitamins 1 each 11/30/21 10:00 12/02/21 09:39 Multivitamins ,Therapeutic Tab PO 1 each QDAY INDERJIT Administration Ondansetron HCl 4 mg 11/26/21 21:59 Ondansetron 4 Mg/2 Ml Inj IV Q8H PRN Nausea And Vomiting Sodium Chloride 10 ml 11/26/21 22:00 12/02/21 09:40 Sodium Chloride 0.9% 10 Ml Flush Syringe IV 10 ml BID INDERJIT Administration Sodium Chloride 10 ml 11/26/21 21:59 Sodium Chloride 0.9% 10 Ml Flush Syringe IV PRN PRN LINE FLUSH Thiamine HCl 100 mg 11/30/21 10:00 12/02/21 09:39 Thiamine 100 Mg Tab PO 100 mg QDAY INDERJIT Administration
--- NOTE | 2021-12-02 14:37 | Progress Note ---
Assessment and Plan Assessment and plan: History Interval history: This is a 36 year old male with EtOH abuse who presented to the ED on 11/26 with complaints of diaphoresis, generalized abdominal swelling, leg edema and shortness of breath with worsening symptoms over the past 5 days via EMS. Last reported alcohol intake was 11/25 per ED documentation. In the ED patient was placed on supplemental oxygen and repositioned with improvement in diaphoresis and respiratory distress. Workup in the ED showed groundglass opacities suggestive of edema versus infiltrate on CXR, severe hyponatermia, severe hypochloremia, lactic acidosis, leukocytosis and nephrology was consulted. CT head showed no acute abnormalityand both CTA chest and CT abdomen/pelvis showed diffuse groundglass airspace opacities, hepatic cirrhosis and generalized anasarca. He was given hypertonic saline at 25mL/hr and BMP ordered every 4 hours. 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 Hospital course to date: 11/27: Obtain abd US, echo, continue BMP q 4 hoyrs, DHT placed. Continue neuro checks q2, COVID PCR (-), obtain urine sodium and osmo, possible diagnostic paracentisis tomorrow. 11/28:Improvement noted to sodium, yesterday evening and overnight patient received 1500 mL D5W, DDAVP x2. Lasix was withheld. We will continue to track BMPs every 4 hours. 11/29: Sodium continues to rise, continue diuresis. Patient will be transferred to the floor. 11/30: Sodium 126->131. hypotonic fliud orders noted overnight from nephrology. Sodium at 7 am: 129. Will continue to follow nephrology guidance for fluid management and sodium monitoring. K=3.1, replaced this AM. hepatic indicies impoving with AST, bilirubin downtrending. 12/01: continue trending sodium. Ordered BMP q4hr. Fluid management per nephrology. Plan for discharge in next 24-48hrs. 12/02: Sodium 134. resting comfortably. NAD. Concern about strength given that ty merritt has been in bed most of this admission. Awaiting PT recommendations. If able to ambulate, can d/c home. otherwise rehab vs [facility]. Assessment and plan: Neuro: Acute metabolic encephalopathy, h/o EtOH abuse -CIWA protocol -s/p Precedex drip -CT head shows no acute abnormalities -Reorientation as needed -Maintain sleep-wake cycle -As needed analgesia -Admit serum alcohol 0.04 -Thiamine, folic acid -Neurochecks every 2 Cardiac: NAD -Cardiology consulted, appreciate recommendations -Blood pressure monitoring per protocol -Echocardiogram shows LVEF 50 to 55%, impaired LV relaxation, RVSP 33 mmHg, moderate TR -Admit proBNP 1043 Respiratory: Acute hypoxic respiratory failure (resolved) -CCM consulted, appreciate recommendations -Currently on room air -Wean supplemental oxygen as tolerated -Pulmonary hygiene -SPO2 monitoring GI: #Alcoholic steatohepatitis, #fatty liver disease -regular diet -Abdominal ultrasound showed hepatic steatosis without abdominal ascites -Trend LFTs, liver function -Alcohol cessation counseling + 15 mins #Morbid obesity - BMI: 39.4 - Counseled patient on the importance of weight loss, incorporating exercise, and dietary changes (lean meats, fresh fruits and vegetables, and water intake). Patient expresses understanding. - Time: +15 min : #Severe hyponatremia (improving) possibly secondary to Beer Potomania, #hypochloremia, #hypokalemia #urinary retention -Nephrology consulted, appreciate recommendations -Per Nephro; likely Beer Potomania given hx -Continue every 4 hr BMPs -Continue diuresis per nephrology -S/p DDAVP x2, 1500 mL D5W overnight 11/27-11/28 -Strict intake and output -Renally dose medications -Avoid nephrotoxic medications -Urine osmolality 404, urine sodium 10, serum osmo 243 -Lasix twice daily per nephrology -S/p hypertonic saline -Replete K ID: COVID-19 PUI, lactic acidosis (resolved) -COVID-19 PCR negative -11/26 BC/UC NGTD -Monitor WBC and temperature curve Endo: NAD -Avoid hypoglycemia Heme: Leukocytosis (resolved) -Trend CBC -heparin subq -SCDs to BLE while in bed History Interval history: Seen and evaluated bedside. No acute complaints this morning. Resting comfortably NAD. Denies any abdominal pain. Hospitalist Physical - Physical exam Narrative exam: Physical Exam: VITAL SIGNS: Reviewed. GENERAL: The patient appears normally developed, Vital signs as documented. morbid obesity HEAD: No signs of head trauma. EYES: Pupils are equal. Extraocular motions intact. EARS: Hearing grossly intact. MOUTH: Oropharynx is normal. NECK: No adenopathy, no JVD. CHEST: Chest with clear breath sounds bilaterally. No wheezes, rales, or rhonchi. CARDIAC: Regular rate and rhythm. S1 and S2, without murmurs, gallops, or rubs. VASCULAR: No Edema. Peripheral pulses normal and equal in all extremities. ABDOMEN: distended, non tender, soft.. No rebound or guarding, and no masses palpated. Bowel Sounds normal. MUSCULOSKELETAL: Good range of motion of all major joints. Extremities without clubbing, cyanosis or edema. NEUROLOGIC EXAM: Alert and oriented x 4. no focal sensory or strength deficits. PSYCHIATRIC: Mood normal. SKIN: detail exam as documented in skin assessment - Constitutional Vitals: Temp Pulse Resp BP Pulse Ox 98.2 F 85 18 148/95 99 12/02/21 11:32 12/02/21 11:32 12/02/21 11:32 12/02/21 11:32 12/02/21 11:32 General appearance: Present: no acute distress Results - Labs CBC & Chem 7: 11/28/21 05:04 12/02/21 05:39 Labs: Laboratory Last Values WBC 6.2 K/mm3 (4.5-11.0) 11/28/21 05:04 RBC 3.44 M/mm3 (3.65-5.03) L 11/28/21 05:04 Hgb 11.8 gm/dl (11.8-15.2) 11/28/21 05:04 Hct 34.1 % (35.5-45.6) L D 11/28/21 05:04 MCV 99 fl (84-94) H 11/28/21 05:04 MCH 34 pg (28-32) H 11/28/21 05:04 MCHC 35 % (32-34) H 11/28/21 05:04 RDW 14.2 % (13.2-15.2) 11/28/21 05:04 Plt Count 145 K/mm3 (140-440) 11/28/21 05:04 Lymph % (Auto) 12.1 % (13.4-35.0) L 11/27/21 02:03 Barron % (Auto) 12.8 % (0.0-7.3) H 11/27/21 02:03 Eos % (Auto) 0.2 % (0.0-4.3) 11/27/21 02:03 Baso % (Auto) 0.5 % (0.0-1.8) 11/27/21 02:03 Lymph # (Auto) 1.9 K/mm3 (1.2-5.4) 11/27/21 02:03 Barron # (Auto) 2.0 K/mm3 (0.0-0.8) H 11/27/21 02:03 Eos # (Auto) 0.0 K/mm3 (0.0-0.4) 11/27/21 02:03 Baso # (Auto) 0.1 K/mm3 (0.0-0.1) 11/27/21 02:03 Seg Neutrophils % 74.4 % (40.0-70.0) H 11/27/21 02:03 Seg Neutrophils # 11.5 K/mm3 (1.8-7.7) H 11/27/21 02:03 PT 16.2 Sec. (12.2-14.9) H 11/26/21 16:24 INR 1.16 (0.87-1.13) H 11/26/21 16:24 APTT 38.3 Sec. (24.2-36.6) H 11/26/21 16:24 ABG pH 7.393 pH Units (7.350-7.450) 11/26/21 18:31 ABG pCO2 19.1 mm Hg 11/26/21 18:31 ABG pO2 110.8 mm Hg (80.0-90.0) H 11/26/21 18:31 ABG HCO3 11.4 mmol/L (20.0-26.0) L 11/26/21 18:31 ABG O2 Saturation 98.1 % (95.0-99.0) 11/26/21 18:31 ABG O2 Content 20.6 (0.0-44) 11/26/21 18:31 ABG Base Excess -10.7 mmol/L (-2.0-3.0) L 11/26/21 18:31 ABG Hemoglobin 15.2 gm/dl (14.0-18.0) 11/26/21 18:31 ABG Carboxyhemoglobin 1.6 % (0.0-5.0) 11/26/21 18:31 ABG Methemoglobin 0.7 % (0.0-1.5) 11/26/21 18:31 Oxyhemoglobin 95.9 % (95.0-99.0) 11/26/21 18:31 FiO2 28 % 11/26/21 18:31 Sodium 136 mmol/L (137-145) L 12/02/21 05:39 Potassium 3.4 mmol/L (3.6-5.0) L 12/02/21 05:39 Chloride 98.2 mmol/L (98-107) 12/02/21 05:39 Carbon Dioxide 25 mmol/L (22-30) 12/02/21 05:39 Anion Gap 16 mmol/L 12/02/21 05:39 BUN 7 mg/dL (9-20) L 12/02/21 05:39 Creatinine 0.5 mg/dL (0.8-1.3) L 12/02/21 05:39 Estimated GFR > 60 ml/min 12/02/21 05:39 BUN/Creatinine Ratio 14 % 12/02/21 05:39 Glucose 97 mg/dL (75-100) 12/02/21 05:39 POC Glucose 111 mg/dL (70-105) H 11/29/21 16:10 Ketones Quantitative Negative (Negative) 11/26/21 16:24 Osmolality 243 Mosm/kg 11/27/21 11:09 Lactic Acid 4.70 mmol/L (0.7-2.0) H* 11/26/21 21:02 Calcium 8.6 mg/dL (8.4-10.2) 12/02/21 05:39 Phosphorus 3.20 mg/dL (2.5-4.5) 11/28/21 05:04 Magnesium 1.90 mg/dL (1.7-2.3) 11/28/21 05:04 Total Bilirubin 1.80 mg/dL (0.1-1.2) H 11/30/21 05:02 Direct Bilirubin 1.5 mg/dL (0-0.2) H 11/29/21 02:06 Indirect Bilirubin 1.0 mg/dL 11/29/21 02:06 AST 153 units/L (5-40) H 11/30/21 05:02 ALT 49 units/L (7-56) 11/30/21 05:02 Alkaline Phosphatase 201 units/L (35-129) H 11/30/21 05:02 Ammonia 59.0 umol/L (25-60) 11/26/21 18:51 NT-Pro-B Natriuret Pep 1043 pg/mL (0-450) H 11/26/21 16:24 Total Protein 6.7 g/dL (6.3-8.2) 11/30/21 05:02 Albumin 2.8 g/dL (3.9-5) L 11/30/21 05:02 Albumin/Globulin Ratio 0.7 % 11/30/21 05:02 Lipase 78 units/L (13-60) H 11/26/21 16:24 TSH 3.910 mlU/mL (0.270-4.200) 11/26/21 18:44 Free T4 1.46 ng/dL (0.76-1.46) 11/26/21 18:44 Urine Color Marquita (Yellow) 11/26/21 11:00 Urine Turbidity Clear (Clear) 11/26/21 11:00 Urine pH 6.0 (5.0-7.0) 11/26/21 11:00 Ur Specific [place] 1.021 (1.003-1.030) 11/26/21 11:00 Urine Protein <15 mg/dl mg/dL (Negative) 11/26/21 11:00 Urine Glucose (UA) Neg mg/dL (Negative) 11/26/21 11:00 Urine Ketones Tr mg/dL (Negative) 11/26/21 11:00 Urine Blood Neg (Negative) 11/26/21 11:00 Urine Nitrite Neg (Negative) 11/26/21 11:00 Urine Bilirubin Neg (Negative) 11/26/21 11:00 Urine Urobilinogen 4.0 mg/dL (<2.0) 11/26/21 11:00 Ur Leukocyte Esterase Neg (Negative) 11/26/21 11:00 Urine WBC (Auto) 1.0 /HPF (0.0-6.0) 11/26/21 11:00 Urine RBC (Auto) < 1.0 /HPF (0.0-6.0) 11/26/21 11:00 U Epithel Cells (Auto) < 1.0 /HPF (0-13.0) 11/26/21 11:00 Urine Osmolality 404 Mosm/kg 11/27/21 11:00 Urine Sodium 10 mmol/L 11/27/21 11:00 Plasma/Serum Alcohol 0.04 % (0-0.07) 11/26/21 18:44 Coronavirus (PCR) Negative (Negative) 11/27/21 11:00 Hepatitis A IgM Ab Nonreactive (NonReactive) 11/28/21 13:34 Hep Bs Antigen Nonreactive (Negative) 11/28/21 13:34 Hep B Core IgM Ab Non-reactive (NonReactive) 11/28/21 13:34 Hepatitis C Antibody Nonreactive (NonReactive) 11/28/21 13:34 Microbiology: Microbiology 11/26/21 21:02 Peripheral/Venous Blood Culture - Final NO GROWTH AFTER 5 DAYS 11/26/21 21:02 Peripheral/Venous Blood Culture - Final NO GROWTH AFTER 5 DAYS Reeves/IV: Voiding Method Indwelling Catheter Active Medications - Current Medications Current Medications: Generic Name Dose Route Start Last Admin Trade Name Freq PRN Reason Stop Dose Admin Acetaminophen 650 mg 11/26/21 21:59 11/30/21 21:06 Acetaminophen 325 Mg Tab PO 650 mg Q4H PRN Administration Pain MILD(1-3)/Fever >100.5/OAKES Famotidine 40 mg 11/29/21 22:00 12/01/21 21:19 Famotidine 20 Mg Tab PO 40 mg QHS INDERJIT Administration Folic Acid 1 mg 11/30/21 10:00 12/02/21 09:39 Folic Acid 1 Mg Tab PO 1 mg QDAY INDERJIT Administration Furosemide 20 mg 11/27/21 18:00 12/02/21 05:32 Furosemide 20 Mg/2 Ml Inj IV 20 mg 0600,1800 INDERJIT Administration Heparin Sodium (Porcine) 5,000 unit 11/27/21 22:00 12/02/21 09:39 Heparin 5,000 Unit/1 Ml Vial SUB-Q 5,000 unit Q12HR INDERJIT Administration Lorazepam 2 mg 11/26/21 22:45 11/27/21 03:06 Lorazepam 2 Mg/Ml Vial IV 2 mg Q4H PRN Administration Alcohol Withdrawal Morphine Sulfate 2 mg 11/26/21 21:59 Morphine 2 Mg/1 Ml Inj IV Q4H PRN Pain, Moderate (4-6) Morphine Sulfate 4 mg 11/26/21 21:59 Morphine 4 Mg/1 Ml Inj IV Q4H PRN Pain , Severe (7-10) Multivitamins 1 each 11/30/21 10:00 12/02/21 09:39 Multivitamins ,Therapeutic Tab PO 1 each QDAY INDERJIT Administration Ondansetron HCl 4 mg 11/26/21 21:59 Ondansetron 4 Mg/2 Ml Inj IV Q8H PRN Nausea And Vomiting Sodium Chloride 10 ml 11/26/21 22:00 12/02/21 09:40 Sodium Chloride 0.9% 10 Ml Flush Syringe IV 10 ml BID INDERJIT Administration Sodium Chloride 10 ml 11/26/21 21:59 Sodium Chloride 0.9% 10 Ml Flush Syringe IV PRN PRN LINE FLUSH Thiamine HCl 100 mg 11/30/21 10:00 12/02/21 09:39 Thiamine 100 Mg Tab PO 100 mg QDAY INDERJIT Administration Nutrition/Malnutrition Assess - Dietary Evaluation Nutrition/Malnutrition Findings: Nutrition Notes Start: 11/27/21 18:57 Freq: Status: Active Protocol: Document 11/30/21 12:25 LYN (Rec: 11/30/21 12:36 LYN [id number]) Nutrition Notes Initial or Follow up Brief Note Other Pertinent Diagnosis Metabolic Encephalopathy, Steatohepatitis, Hyponatremia, EtOH Abuse, ... Current Diet Regular Diet (since D 11/29). Height 5 ft 4 in Weight 104 kg [place] Body Weight (kg) 59.09 BMI 39.3 Weight change and time frame No body weight change reported in 2 days. Weight Status Obese Subjective/Other Information RD consult for routine F/U on dietary advancement. Diet advanced to PO, but no reports available on Pt's PO intake of meals at the time, will assess at F/U. Pt is on Room Air, O2 saturation @ 96%, according to Vital Signs. Percent of energy/protein needs met: Prescribed Regular Diet provides for energy/protein needs (2,289 Kcal/89 g) during LOS. Is patient on ventilator? No Is Patient Ambulatory and/or Out of Bed Yes REE-([place]. Jeor-ambulatory/OOB) [ 9981.800 [id number]] Kcal/Kg value to use for calculation 14 Approximate Energy Requirements Using 1456 kcal/Kg Calculation Used for Recommendations Kcal/kg Additional Notes Protein: 0.8-1 g/Kg AdjBW; 66- 82 g/day. Fluids: 1 ml/Kcal, or as per MD. Nutrition Intervention Change Diet Order: Continue Regular Diet. Follow-Up By: 12/06/21 Additional Comments Continue monitoring food tolerance, %PO intake of meals , and BM.
[2021-12-02] MEDS: FAMOTIDINE 20 MG TAB PO SCH (22:14)
[2021-12-03] MEDS: FUROSEMIDE 20 MG/2 ML INJ IV SCH (06:24)
[2021-12-03 06:28] LABS: Blood Urea Nitrogen 8 mg/dL (9-20); Calcium 8.4 mg/dL (8.4-10.2); Hemolysis Index 11
[2021-12-03 06:34] LABS: BUN/Creatinine Ratio 20
[2021-12-03 06:44] VITALS: BP 120/70
--- NOTE | 2021-12-03 10:17 | Discharge Summary ---
Providers - Providers Date of Admission: 11/26/21 22:12 Date of discharge: 12/03/21 Attending physician: FRANCESCA CONDON 11/26/21 18:49 Consult to Physician [CONS] Urgent Comment: maria saw patient/ arpan Consulting Provider: YASH ZAMORA Physician Instructions: Reason For Exam: hyponatremia 12/02/21 09:51 Physical Therapy Evaluation and Treat [CONS] Routine Comment: Reason For Exam: assess ambulation/gait Primary care physician: SAMMIE ANDRADE Hospitalization Reason for admission: SOB Condition: Stable Hospital course: This is a 36 year old male with EtOH abuse who presented to the ED on 11/26 with complaints of diaphoresis, generalized abdominal swelling, leg edema and shortness of breath with worsening symptoms over the past 5 days via EMS. Last reported alcohol intake was 11/25 per ED documentation. In the ED patient was placed on supplemental oxygen and repositioned with improvement in diaphoresis and respiratory distress. Workup in the ED showed groundglass opacities suggestive of edema versus infiltrate on CXR, severe hyponatermia, severe hypochloremia, lactic acidosis, leukocytosis and nephrology was consulted. CT head showed no acute abnormalityand both CTA chest and CT abdomen/pelvis showed diffuse groundglass airspace opacities, hepatic cirrhosis and generalized anasarca. He was given hypertonic saline at 25mL/hr and BMP ordered every 4 hours. 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 Hospital course to date: 11/27: Obtain abd US, echo, continue BMP q 4 hoyrs, DHT placed. Continue neuro checks q2, COVID PCR (-), obtain urine sodium and osmo, possible diagnostic paracentisis tomorrow. 11/28:Improvement noted to sodium, yesterday evening and overnight patient received 1500 mL D5W, DDAVP x2. Lasix was withheld. We will continue to track BMPs every 4 hours. 11/29: Sodium continues to rise, continue diuresis. Patient will be transferred to the floor. 11/30: Sodium 126->131. hypotonic fliud orders noted overnight from nephrology. Sodium at 7 am: 129. Will continue to follow nephrology guidance for fluid management and sodium monitoring. K=3.1, replaced this AM. hepatic indicies impoving with AST, bilirubin downtrending. 12/01: continue trending sodium. Ordered BMP q4hr. Fluid management per nephrology. Plan for discharge in next 24-48hrs. 12/02: Sodium 134. resting comfortably. NAD. Concern about strength given that patient has been in bed most of this admission. Awaiting PT recommendations. If able to ambulate, can d/c home. otherwise rehab vs C. 12/03: Sodium has normalized. PT recommends home health PT. Assessment and plan: Neuro: Acute metabolic encephalopathy, h/o EtOH abuse -CIWA protocol -s/p Precedex drip -CT head showed no acute abnormalities -Reorientation as needed -Admitted with serum alcohol 0.04 -Thiamine, folic acid Cardiac: NAD -Cardiology consulted, appreciate recommendations -Blood pressure monitoring per protocol -Echocardiogram shows LVEF 50 to 55%, impaired LV relaxation, RVSP 33 mmHg, moderate TR -Admit proBNP 1043 Respiratory: Acute hypoxic respiratory failure (resolved) -CCM consulted, appreciate recommendations -Currently on room air -Wean supplemental oxygen as tolerated -Pulmonary hygiene -SPO2 monitoring GI: #Alcoholic steatohepatitis, #fatty liver disease -regular diet -Abdominal ultrasound showed hepatic steatosis without abdominal ascites -Trend LFTs, liver function -Alcohol cessation counseling + 15 mins #Morbid obesity - BMI: 39.4 - Counseled patient on the importance of weight loss, incorporating exercise, and dietary changes (lean meats, fresh fruits and vegetables, and water intake). Patient expresses understanding. - Time: +15 min : #Severe hyponatremia (improving) possibly secondary to Beer Potomania, #hypochloremia, #hypokalemia #urinary retention -Nephrology consulted, appreciate recommendations -Per Nephro; likely Beer Potomania given hx -S/p DDAVP x2, 1500 mL D5W overnight 11/27-11/28 -Lasix twice daily per nephrology -S/p hypertonic saline -Repleted K ID: COVID-19 PUI, lactic acidosis (resolved) -COVID-19 PCR negative -11/26 BC/UC NGTD -Monitor WBC and temperature curve Endo: NAD -Avoid hypoglycemia Heme: Leukocytosis (resolved) -Trend CBC -heparin subq -SCDs to BLE while in bed Disposition: HOME HEALTH CARE SERVICE Final Discharge Diagnosis (Prints w/discharge instructions): Metabolic encephalopathy, acute hypoxic respiratory failure, fatty liver disease, morbid obesity, hypokalemia, urinary retention, history of EtOH abuse, hyponatremia Core Measure Documentation - Palliative Care Palliative Care/ Comfort Measures: Not Applicable - Core Measures Any of the following diagnoses?: none Exam - Constitutional Vitals: Temp Pulse Resp BP Pulse Ox 98.6 F 71 18 120/70 98 12/03/21 05:26 12/03/21 05:26 12/03/21 05:26 12/03/21 05:26 12/03/21 05:26 General appearance: Present: no acute distress, well-nourished - EENT Eyes: Present: PERRL ENT: hearing intact, clear oral mucosa - Neck Neck: Present: supple, normal ROM - Respiratory Respiratory effort: normal Respiratory: bilateral: CTA - Cardiovascular Heart Sounds: Present: S1 & S2. Absent: rub, click - Extremities Extremities: pulses symmetrical, No edema Peripheral Pulses: within normal limits - Abdominal General gastrointestinal: Present: soft, non-tender, non-distended, normal bowel sounds Male genitourinary: Present: normal - Integumentary Integumentary: Present: clear, warm, dry - Musculoskeletal Musculoskeletal: gait normal, strength equal bilaterally - Psychiatric Psychiatric: appropriate mood/affect, intact judgment & insight - Neurologic Neurologic: CNII-XII intact, moves all extremities Plan Activity: advance as tolerated Weight Bearing Status: Weight Bear as Tolerated Diet: regular Special Instructions: home health RN Follow up with: SAMMIE ANDRADE MD [Primary Care Provider] - 7 Days Prescriptions: Folic Acid [Folvite] 1 mg PO QDAY #30 tablet Multivitamin Tab [Multiple Vitamin TAB (Theragran)] 1 each PO QDAY #30 tablet Thiamine [Vitamin B-1] 100 mg PO QDAY #30 tablet
[2021-12-03] MEDS: HEPARIN 5,000 UNIT/1 ML VIAL SUB-Q SCH (11:14)
[2021-12-03] MEDS: FOLIC ACID 1 MG TAB PO SCH (11:14)
[2021-12-03] MEDS: MULTIVITAMINS ,THERAPEUTIC TAB PO SCH (11:14)
[2021-12-03] MEDS: THIAMINE 100 MG TAB PO SCH (11:16)
--- NOTE | 2021-12-03 12:54 | Progress Note ---
Assessment and Plan Assessment: Hyponatremia likely Hypervolemic, also since have history of Alcohol Abuse could have Beer Potomania Questionable Alcohol withdrawal Anasarca Pneumonia Acidosis Plan: Recent serum sodium level is 137 today Admission sodium level was 102. S/P 3% hypertonic saline treatment. S/P D5W for overcorrection Continue current management for hyponatremia with fluid restriction and diuretics Goal correction is not to exceed 8 mmol in 24 hours Anarsarca- on low dose Lasix at 20 mg IV BID Monitor I/O's daily Obtain daily weights Can be discharged from nephrology standpoint Plan of care reviewed by Dr. Diaz Subjective Date of service: 12/03/21 Principal diagnosis: hyponatremia Interval history: Patient seen sitting up in chair at bedside eating. No family at bedside. Objective - Vital Signs Vital signs: Vital Signs - 12hr 12/03/21 05:26 Temperature 98.6 F Pulse Rate 71 Respiratory 18 Rate Blood Pressure 120/70 O2 Sat by Pulse 98 Oximetry - General Appearance General appearance: well-developed, appears stated age EENT: ATNC Neck: no JVD, supple Respiratory: Present: Decreased Breath Sounds Cardiology: S1S2 Gastrointestinal: normoactive bowel sounds Integumentary: warm and dry Neurologic: other (Awake) Musculoskeletal: joint swelling - Lab 11/28/21 05:04 12/03/21 05:38 Most recent lab results ABG pH 7.393 pH Units (7.350-7.450) 11/26/21 18:31 ABG pCO2 19.1 mm Hg 11/26/21 18:31 ABG pO2 110.8 mm Hg (80.0-90.0) H 11/26/21 18:31 ABG HCO3 11.4 mmol/L (20.0-26.0) L 11/26/21 18:31 ABG O2 Saturation 98.1 % (95.0-99.0) 11/26/21 18:31 Calcium 8.4 mg/dL (8.4-10.2) 12/03/21 05:38 Phosphorus 3.20 mg/dL (2.5-4.5) 11/28/21 05:04 Magnesium 1.90 mg/dL (1.7-2.3) 11/28/21 05:04 Urine Sodium 10 mmol/L 11/27/21 11:00 Medications & Allergies - Medications Allergies/Adverse Reactions: Allergies No Known Allergies Allergy (Verified 11/26/21 18:35) Home Medications: Home Medications Medication Instructions Recorded Confirmed Last Taken Type Folic Acid [Folvite] 1 mg PO QDAY #30 tablet 12/03/21 Unknown Rx Furosemide [Lasix] 20 mg PO QDAY #30 tablet 12/03/21 Unknown Rx Multivitamin Tab [Multiple Vitamin 1 each PO QDAY #30 tablet 12/03/21 Unknown Rx TAB (Theragran)] Thiamine [Vitamin B-1] 100 mg PO QDAY #30 tablet 12/03/21 Unknown Rx Active Medications: Generic Name Dose Route Start Last Admin Trade Name Freq PRN Reason Stop Dose Admin Acetaminophen 650 mg 11/26/21 21:59 11/30/21 21:06 Acetaminophen 325 Mg Tab PO 650 mg Q4H PRN Administration Pain MILD(1-3)/Fever >100.5/OAKES Famotidine 40 mg 11/29/21 22:00 12/02/21 22:14 Famotidine 20 Mg Tab PO 40 mg QHS INDERJIT Administration Folic Acid 1 mg 11/30/21 10:00 12/03/21 11:14 Folic Acid 1 Mg Tab PO 1 mg QDAY INDERJIT Administration Furosemide 20 mg 11/27/21 18:00 12/03/21 06:24 Furosemide 20 Mg/2 Ml Inj IV 20 mg 0600,1800 IDNERJIT Administration Heparin Sodium (Porcine) 5,000 unit 11/27/21 22:00 12/03/21 11:14 Heparin 5,000 Unit/1 Ml Vial SUB-Q 5,000 unit Q12HR INDERJIT Administration Lorazepam 2 mg 11/26/21 22:45 11/27/21 03:06 Lorazepam 2 Mg/Ml Vial IV 2 mg Q4H PRN Administration Alcohol Withdrawal Morphine Sulfate 2 mg 11/26/21 21:59 Morphine 2 Mg/1 Ml Inj IV Q4H PRN Pain, Moderate (4-6) Morphine Sulfate 4 mg 11/26/21 21:59 Morphine 4 Mg/1 Ml Inj IV Q4H PRN Pain , Severe (7-10) Multivitamins 1 each 11/30/21 10:00 12/03/21 11:14 Multivitamins ,Therapeutic Tab PO 1 each QDAY INDERJIT Administration Ondansetron HCl 4 mg 11/26/21 21:59 Ondansetron 4 Mg/2 Ml Inj IV Q8H PRN Nausea And Vomiting Sodium Chloride 10 ml 11/26/21 22:00 12/03/21 11:15 Sodium Chloride 0.9% 10 Ml Flush Syringe IV 10 ml BID INDERJIT Administration Sodium Chloride 10 ml 11/26/21 21:59 Sodium Chloride 0.9% 10 Ml Flush Syringe IV PRN PRN LINE FLUSH Thiamine HCl 100 mg 11/30/21 10:00 12/03/21 11:16 Thiamine 100 Mg Tab PO 100 mg QDAY INDERJIT Administration
== END 2021-12-03 18:56 | disposition home or self-care (01) | DRG 640 ==
LOC: ED 15:48 → CC1 22:12 → 3A 11-29 21:30
PROVIDERS: ADMIT Hospitalist; ATTEND Hospitalist
PROC: 4A033R1 Measurement of Arterial Saturation, Peripheral, Percutaneous Approach (ICD-10-PCS; principal; 2021-11-26)
DX: E87.1 Hypo-osmolality and hyponatremia (principal); G93.41 Metabolic encephalopathy; J96.01 Acute respiratory failure with hypoxia; J18.9 Pneumonia, unspecified organism; F10.239 Alcohol dependence with withdrawal, unspecified; E87.2 Acidosis; R60.1 Generalized edema; K70.0 Alcoholic fatty liver; Z82.49 Family history of ischemic heart disease and other diseases of the circulatory system; E66.9 Obesity, unspecified; E87.8 Other disorders of electrolyte and fluid balance, not elsewhere classified; E87.5 Hyperkalemia; Z20.822 Contact with and (suspected) exposure to COVID-19; E66.01 Morbid (severe) obesity due to excess calories; K70.10 Alcoholic hepatitis without ascites; R33.9 Retention of urine, unspecified
CPT/HCPCS: 36415; 70450; 71045; 71275; 74018; 74177; 76705; 80048; 80053; 80074; 80076; 80320; 81001; 82010; 82140; 82803; 82962; 83690; 83735; 83880; 83930; 83935; 84100; 84300; 84439; 84443; 85025; 85027; 85610; 85730; 87040; 87086; 93005; 93306; 94640; 94760; G0378; J3490; J7121; Q9967; C8929; G0480; J0456; J0610; J0696; J1644; J1815; J1940; J2060; J2597; J3411; J3480; J3486; J7030; J7070; U0003